=== PATIENT | female | born 1995 | race Caucasian/White ===

== ENCOUNTER 2024-09-27 16:49 | Inpatient (IN) | payer MEDICAID, SELFPAY ==
[2024-09-27 16:51] VITALS: BMI 31.8
[2024-09-27 17:05] VITALS: BP 128/87; PULSE 85; RESP 18; TEMP 37.2; O2SAT 98
--- NOTE | 2024-09-27 17:15 | XR_ITS ---
Examination: Complete OB ultrasound greater than 14 weeks Date and time of exam: September 27, 2024 1850 hrs. Indications: Clinical diagnosis molar , positive test on laboratory examination today Findings: Viable intrauterine single fetus with single amniotic sac Uterus 8.3 x 5.3 x 6.1 cm Cystic complex areas within the endometrium 4.1 x 3.5 x 5.2 cm consistent with more No recognizable viable intrauterine gestation Right ovary 2.7 x 2.3 x 1.7 cm arterial flow Left ovary obscured by bowel gas Impression: Findings most consistent with molar , recommend short-term follow-up pelvic sonography
--- NOTE | 2024-09-27 17:16 | PD.EDRME ---
Rapid Medical Screening Exam RME Arrival date/time: 09/27/24 16:49 29-year-old female approximately 18 weeks presents to the emergency department today stating that she went to the [facility] [employer] office today and they referred her today to the ER to rule out molar Chief Complaint: Urogenital-Female Time Seen by Provider: 09/27/24 17:02 Vital signs: Vital Signs Temperature 98.9 F 09/27/24 17:05 Pulse Rate 85 09/27/24 17:05 Respiratory Rate 18 09/27/24 17:05 Blood Pressure 128/87 H 09/27/24 17:05 Pulse Oximetry (%) 98 09/27/24 17:05 Oxygen Delivery Method Room Air 09/27/24 17:05
[2024-09-27 17:46] LABS: Collection Type, Urine Clean Catch
[2024-09-27 17:54] LABS: Bilirubin,Urine Negative (Negative); Blood,Urine Negative (Negative); Clarity,Urine Clear (Clear/Hazy); Color,Urine Lt-Yellow (Lt Yel-Yel); Glucose, Urine Negative (Negative); Ketones,Urine Negative (Negative); Leukocyte Esterase,Urine Negative (Negative); Nitrite,Urine Negative (Negative); PH,Urine 7.5 (5.0-7.0); Protein,Urine Negative (Neg - Trace); RBC,Urine 9 /hpf (0-3); Specific Gravity,Urine 1.016 (1.001-1.035); Squamous Epithelial Cell,Urine 7 /hpf (0-5); Urobilinogen,Urine Negative mg/dL (0.0-1.0); WBC,Urine 2 /hpf (0-5)
[2024-09-27 18:06] LABS: Basophils # (Auto) 0.1 Thou/mm3 (0.0-0.2); Basophils % (Auto) 1 % (0-2.5); Eosinophils # (Auto) 0.1 Thou/mm3 (0.0-0.5); Eosinophils % (Auto) 1 % (0-10); Hematocrit 43.8 % (36.0-46.0); Hemoglobin 14.7 g/dL (12.0-16.0); Immature Granulocytes % (Auto) 0 % (0-0); Immature Granulocytes Auto 0.01 Thou/mm3 (0.00-0.00); Lymphocytes # (Auto) 1.7 Thou/mm3 (1.0-4.8); Lymphocytes % (Auto) 20 % (10-50); Mean Corpuscular HGB Conc 33.6 g/dl (31.0-37.0); Mean Corpuscular Hemoglobin 30.9 pg (25.0-35.0); Mean Corpuscular Volume 92 fL (80-100); Monocytes # (Auto) 0.5 Thou/mm3 (0.0-0.8); Monocytes % (Auto) 5 % (0-12); Neutrophils # (Auto) 6.5 Thou/mm3 (1.8-7.7); Neutrophils % (Auto) 73 % (37-80); Nucleated Red Blood Cell % 0 /100 WBC (0); Platelet Count 308 Thou/mm3 (140-440); RDW Standard Deviation 43.7 fL (36.4-46.3); Red Blood Count 4.76 Miln/mm3 (4.00-5.20); White Blood Count 8.9 Thou/mm3 (3.6-11.0)
[2024-09-27 18:48] LABS: Alanine Aminotransferase 49 U/L (10-49); Albumin, Serum 4.9 gm/dL (3.5-5.0); Albumin/Globulin Ratio 1.6 (1.2-2.2); Alkaline Phosphatase 85 U/L (46-116); Anion Gap 7 (7-16); Aspartate Amino Transferase 41 U/L (0-34); BUN/Creatinine Ratio 17 Ratio (12-20); Beta HCG,Quantitative 53 mIU/mL (<5.0); Bilirubin,Total 0.6 mg/dL (0.3-1.2); Blood Urea Nitrogen 10 mg/dL (9-23); Calcium 9.4 mg/dL (8.3-10.6); Calcium (Corrected) 9.4 mg/dL (8.5-10.1); Chloride 103 mMol/L (98-107); Creatinine (Component) 0.6 mg/dL (0.6-1.3); Estimated Creatinine Clearance 138.7 mL/min (>60); Glucose 87 mg/dL (74-106); Osmolality,Calculated 271 (275-295); Potassium 4.7 mMol/L (3.4-5.1); Sodium 137 mMol/L (136-145); Total Protein 7.9 gm/dL (5.7-8.2); eGFR > 60 See Note
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
--- NOTE | 2024-09-27 20:14 | XR_ITS ---
Examination: PA lateral chest 2 views Technique: Upright PA lateral chest 2 views Exam date and time: September 27, 2024 2106 hrs. Comparison March 05, 2023 Indications: Coughing up blood today. Findings: Normal heart size Lungs are clear The osseous structures are intact Impression: No pneumonia identified If the patient has true hemoptysis, consider CTA chest with intravenous contrast follow-up
--- NOTE | 2024-09-27 20:14 | EKG_ITS ---
[facility] Test Date: 2024-09-27 Pat Name: ARNOLD GLASGOW Department: Room: - Gender: Female News Agent: : 1995 Requested By: Rishabh Hurtado Order Number: [id number] Reading MD: Rishabh Hurtado Measurements Intervals [place] Rate: 76 P: -14 SC: 152 QRS: 20 QRSD: 85 T: 29 QT: 400 QTc: 450 Interpretive Statements SINUS RHYTHM Compared to ECG 12/24/2021 03:47:51 Myocardial infarct finding no longer present /store/S0/[id number]/ecg/[id number].pdf
[2024-09-27 20:36] LABS: Partial Thromboplastin Time 29.6 Seconds (22.0-36.0); Prothrombin Time 10.9 Seconds (9.0-12.2)
--- NOTE | 2024-09-27 21:00 | PC.NURSE ---
First contact with pt in Room 9, pt changed into gown, connected to bedside monitoring and evaluation advisor, call light within reach. OB at bedside performing a vaginal exam, credit underwriter chaperoned exam, pt tolerated well.
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
[2024-09-27 21:30] VITALS: BP 128/83; PULSE 75; RESP 18; TEMP 37; O2SAT 99
[2024-09-27 21:33] LABS: Thyroid Stimulating Hormone 4.21 uIU/mL (0.55-4.78)
--- NOTE | 2024-09-27 22:00 | PC.NURSE ---
[facility] FAXED PAPERWORK FOR POSSIBLE TRANSFER
--- NOTE | 2024-09-27 22:20 | PC.NURSE ---
ACCEPTED [facility], SPOKE WITH ACIA, ER TO ER DR ARGUETA, [phone] FOR REPORT
--- NOTE | 2024-09-27 22:50 | PC.NURSE ---
[facility] CALLED BACK AND RESEND THE ACCEPTANCE, PT WILL BE ADMITTED TO OUR HOS[facility]
[2024-09-27 23:25] VITALS: BP 109/65; PULSE 78; RESP 17; TEMP 37.1; O2SAT 100
[2024-09-28 00:02] VITALS: BMI 28.0
[2024-09-28 00:32] VITALS: BP 124/83; PULSE 82; RESP 19; TEMP 36.3; O2SAT 95
[2024-09-28 04:00] VITALS: BP 100/80; PULSE 103; RESP 18; TEMP 36.2; O2SAT 96
[2024-09-28 06:50] LABS: Amphetamine/Methamp Scrn,U Negative (Negative); Barbiturate Screen,Urine Negative (Negative); Benzodiazepines Screen,Urine Negative (Negative); Benzoylecgonine Screen, Ur Negative (Negative); Fentanyl Screen,Urine Negative (Negative); Opiate Screen,Urine Negative (Negative); THC Screen,Urine Negative (Negative)
[2024-09-28 08:00] VITALS: BP 104/69; PULSE 88; RESP 16; TEMP 36.3; O2SAT 93
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
--- NOTE | 2024-09-28 11:22 | PC.CM ---
1052 Dr called me can and stated patient is stable and will be followed up on Monday in [place] [facility], referral [facility]. 929 I received a referral to transfer patient for molar . stating she needs an CUTTER HAND.
== END 2024-09-28 14:30 | disposition home or self-care (01) | DRG 566 ==
LOC: SERX 21:26 → SERHOLD 23:02 → S3NX 23:47
PROVIDERS: Nurse Practitioner Primary Care; Admitting Provider Obstetrics & Gynecology; Emergency Provider Emergency Medicine; PCP Family Medicine; Visit Provider Obstetrics & Gynecology
DX: O01.9 Hydatidiform mole, unspecified (principal); Z3A.19 19 weeks gestation of pregnancy
CPT/HCPCS: 36415; 71046; 76805; 80053; 80307; 81001; 84443; 84702; 85025; 85610; 85730; 86850; 86900; 86901; 87086

== ENCOUNTER 2024-11-05 19:44 | Inpatient (IN) | payer MEDICAID, SELFPAY ==
[2024-11-05 19:45] VITALS: BMI 26.5
[2024-11-05 19:47] VITALS: PULSE 87; RESP 18; O2SAT 100
--- NOTE | 2024-11-05 19:54 | XR_ITS ---
Examination: AP chest single view Technique: AP portable semiupright chest single view Exam date and time: November 05, 2024 0811 hrs. Comparison September 27, 2024 Indications: Difficulty breathing today Findings: Normal heart size No lobar pneumonia or pulmonary edema Intact osseous structures Impression: Poor inspiratory effort chest x-ray No pneumonia
[2024-11-05 19:57] VITALS: BP 114/86; PULSE 88; RESP 17; TEMP 36.8; O2SAT 99
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
--- NOTE | 2024-11-05 20:33 | EKG_ITS ---
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
[2024-11-05 20:36] LABS: Basophils # (Auto) 0.1 Thou/mm3 (0.0-0.2); Basophils % (Auto) 1 % (0-2.5); Eosinophils # (Auto) 0.2 Thou/mm3 (0.0-0.5); Eosinophils % (Auto) 2 % (0-10); Hemoglobin 13.5 g/dL (12.0-16.0); Immature Granulocytes % (Auto) 0 % (0-0); Immature Granulocytes Auto 0.03 Thou/mm3 (0.00-0.00); Lymphocytes # (Auto) 2.4 Thou/mm3 (1.0-4.8); Lymphocytes % (Auto) 24 % (10-50); Mean Corpuscular HGB Conc 32.9 g/dl (31.0-37.0); Mean Corpuscular Hemoglobin 30.7 pg (25.0-35.0); Mean Corpuscular Volume 93 fL (80-100); Monocytes # (Auto) 0.7 Thou/mm3 (0.0-0.8); Monocytes % (Auto) 7 % (0-12); Neutrophils # (Auto) 6.7 Thou/mm3 (1.8-7.7); Neutrophils % (Auto) 66 % (37-80); Nucleated Red Blood Cell % 0 /100 WBC (0); Platelet Count 319 Thou/mm3 (140-440); RDW Standard Deviation 43.7 fL (36.4-46.3)
[2024-11-05] MEDS: SODIUM CHLORIDE 0.9% 1000 ML 1,000 ML 85 ML IV (20:38)
[2024-11-05 20:58] LABS: INR 0.9 (0.9-1.3); Partial Thromboplastin Time 27.5 Seconds (22.0-36.0); Prothrombin Time 10.3 Seconds (9.0-12.2)
[2024-11-05 21:05] LABS: Alanine Aminotransferase 18 U/L (10-49); Albumin, Serum 4.1 gm/dL (3.5-5.0); Albumin/Globulin Ratio 1.3 (1.2-2.2); Anion Gap 8 (7-16); Aspartate Amino Transferase 20 U/L (0-34); BUN/Creatinine Ratio 17 Ratio (12-20); Bilirubin,Total 0.2 mg/dL (0.3-1.2); Blood Urea Nitrogen 12 mg/dL (9-23); Calcium 8.8 mg/dL (8.3-10.6); Calcium (Corrected) 8.8 mg/dL (8.5-10.1); Carbon Dioxide 26.4 mMol/L (20.0-31.0); Chloride 106 mMol/L (98-107); Creatinine (Component) 0.7 mg/dL (0.6-1.3); Estimated Creatinine Clearance 108.8 mL/min (>60); Globulin 3.1 gm/dL (2.3-3.5); Glucose 92 mg/dL (74-106); Osmolality,Calculated 279 (275-295); Potassium 4.8 mMol/L (3.4-5.1); Sodium 140 mMol/L (136-145); Total Protein 7.2 gm/dL (5.7-8.2); eGFR > 60 See Note
[2024-11-05 21:20] LABS: Alkaline Phosphatase 94 U/L (46-116)
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
[2024-11-05 22:32] VITALS: BP 100/83; PULSE 86; RESP 19; O2SAT 100
[2024-11-05 23:33] VITALS: PULSE 83; RESP 18; O2SAT 98
[2024-11-06] VITALS (178 sets, daily range): BP systolic 53–139; BP diastolic 41–107; PULSE 58–132; RESP 14–115; TEMP 36–36.4; O2SAT 20–100; BMI 26.5
--- NOTE | 2024-11-06 03:47 | XR_ITS ---
Examination: AP chest single view Technique one AP portable semiupright chest single view Exam date and time: November 06, 2024 0405 hrs. Comparison November 05, 2024 Indications: Hypoxic respiratory failure postintubation Findings: Endotracheal tube tip 3.3 cm above shannon Air distended stomach Mild prominence cardiac contour Diffuse edema and/or pneumonia at the lung puga Impression: Diffuse edema and/or pneumonia in the lymph nodes Endotracheal tube tip 3.3 cm above shannon Significantly air distended stomach
[2024-11-06] MEDS: PROPOFOL 1,000 MG IVPB 1,000 MG/100 ML VIAL 20.412 MG IV ×2 (03:58→08:28)
[2024-11-06] MEDS: fentaNYL CIT INJ 50 mCg/ML AMP 2ML IM (04:00)
[2024-11-06] MEDS: Norepinephrine/D5W 8mg/250ml 8 MG/250 ML BAG 6.379 MG IV (04:00)
[2024-11-06] MEDS: RINGERS LACTATED 1000 ML 1,000 ML 999 ML IV (04:02)
[2024-11-06 04:07] LABS: Base Excess, Venous -14 (-3-3); O2 Saturation, Venous 48 % (96-97); PCO2, Venous 81 mmHg (36-56); PO2, Venous 37 mmHg (15-58); pH, Venous 6.98 (7.33-7.66)
[2024-11-06 04:08] LABS: Basophils # (Auto) 0.2 Thou/mm3 (0.0-0.2); Basophils % (Auto) 1 % (0-2.5); Eosinophils # (Auto) 0.2 Thou/mm3 (0.0-0.5); Eosinophils % (Auto) 1 % (0-10); Hemoglobin 13.4 g/dL (12.0-16.0); Immature Granulocytes % (Auto) 12 % (0-0); Immature Granulocytes Auto 1.71 Thou/mm3 (0.00-0.00); Lymphocytes # (Auto) 8.6 Thou/mm3 (1.0-4.8); Lymphocytes % (Auto) 59 % (10-50); Mean Corpuscular HGB Conc 31.2 g/dl (31.0-37.0); Mean Corpuscular Hemoglobin 30.7 pg (25.0-35.0); Mean Corpuscular Volume 99 fL (80-100); Monocytes # (Auto) 0.8 Thou/mm3 (0.0-0.8); Monocytes % (Auto) 5 % (0-12); Neutrophils # (Auto) 3.3 Thou/mm3 (1.8-7.7); Neutrophils % (Auto) 22 % (37-80); Nucleated Red Blood Cell # 0.13 Thou/mm3 (0.00-0.00); Nucleated Red Blood Cell % 1 /100 WBC (0); Platelet Count 190 Thou/mm3 (140-440); RDW Standard Deviation 45.6 fL (36.4-46.3); Red Blood Count 4.36 Miln/mm3 (4.00-5.20); White Blood Count 14.7 Thou/mm3 (3.6-11.0)
--- NOTE | 2024-11-06 04:09 | XR_ITS ---
Examination: CT brain head without contrast. 2-D sagittal coronal reconstructions Date and time of exam:November 06, 2024 0839 hrs. Comparison March 05, 2023 Indications: Post cardiopulmonary arrest today CTDI: vol (mGy):51.2 DLP: (mGycm):1027 Technique: Multiple CT axial sections of the brain have been obtained, 5 mm slice thickness. Contrast has not been administered. 2-D sagittal, coronal reconstructions have been obtained Low dose protocols were performed. One or more of the following dose reduction techniques were used; automated exposure control, adjustment of the mA and/or KV according to patient size, use of iterative reconstruction technique. 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 No mass effect or midline shift Basal cisterns are not remarkable. Fourth ventricle is midline. Cranial vault intact. Impression: Negative for acute hemorrhage, mass effect or midline shift Suspicious for mild generalized cerebral edema Brain MRI follow-up would best confirm anoxic ischemic change
[2024-11-06] MEDS: fentaNYL 2,500 MCG/250 ML BAG 2,500 MCG/250 ML BAG 30 MCG IV (04:25)
--- NOTE | 2024-11-06 04:32 | PC.RT ---
PT came into ER last night due to accidental removal of tracheotomy tube, RT was unable to replace trach due to shrinkage of stoma, pt was admitted and stable on trach mask blow-by. Pt brought up to tele and remained stable throughout the evening awaiting revisions of tracheotomy. MEDICAL INTERN called @ 0312 due to rapid desaturations, upon RT entry into room pt was in clear respiratory distress, cyanotic and gasping for air/ and flailing arms. Pt instructed to lay back so RT could begin to administer bagged respirations to assist. Pt continued to go hypoxic and pulses lost. CPR initiated and prateek brown called over head @0314. Dr. Hairston called to bedside to intubate pt. Pt has hx of tracheal stenosis and was unable to be orally intubate. RT suggested to intubate via tracheal stoma. 5.0 ETT was sucessfully passed into stoma, yielding a positive co2 colormetric change @0329. Pt taken to ICU. ETT secured into stoma with tape @ 11CM at stoma site, post chest xray tube was retracted to 8CM @ stoma site and secured with tape and tegaderm. Pt placed on ventilator and remains stable as of this note.
[2024-11-06 04:33] LABS: Alanine Aminotransferase 81 U/L (10-49); Albumin, Serum 3.4 gm/dL (3.5-5.0); Albumin/Globulin Ratio 1.2 (1.2-2.2); Alkaline Phosphatase 116 U/L (46-116); Anion Gap 17 (7-16); Aspartate Amino Transferase 91 U/L (0-34); BUN/Creatinine Ratio 13 Ratio (12-20); Bilirubin,Total 0.2 mg/dL (0.3-1.2); Blood Urea Nitrogen 9 mg/dL (9-23); Calcium 8.3 mg/dL (8.3-10.6); Calcium (Corrected) 8.8 mg/dL (8.5-10.1); Carbon Dioxide 16.9 mMol/L (20.0-31.0); Chloride 111 mMol/L (98-107); Creatinine (Component) 0.7 mg/dL (0.6-1.3); Estimated Creatinine Clearance 108.8 mL/min (>60); Globulin 2.8 gm/dL (2.3-3.5); Glucose 177 mg/dL (74-106); Magnesium 2.4 mg/dL (1.6-2.6); Osmolality,Calculated 291 (275-295); Phosphorous 5.4 mg/dL (2.4-5.1); Potassium 5.4 mMol/L (3.4-5.1); Sodium 145 mMol/L (136-145); Total Protein 6.2 gm/dL (5.7-8.2); Troponin I < 0.020 ng/mL (0.0-0.045); eGFR > 60 See Note
[2024-11-06] MEDS: AMIODARONE 150 MG IVPB 150 MG/100 ML BAG 600 MG IV (04:39)
[2024-11-06 04:47] LABS: Cholesterol 99 mg/dL (132-200); HDL Cholesterol 50 mg/dL (40-60); LDL Cholesterol,Calculated 31 mg/dL (0-130); Triglycerides 90 mg/dL (30-150)
[2024-11-06] MEDS: AMIODARONE 360 MG IVPB 360 MG/200 ML BAG 33.333 MG IV (04:48)
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
--- NOTE | 2024-11-06 06:11 | PD.RESPROC ---
Procedures Procedure Date / Time 11/06/24 0611 Central Line Placement Right Femoral: Indication(s): shock and other (post rosc) Informed consent obtained: implied Time out done, and the following verified: correct patient, side and site, procedure, patient position and implants and/or equipment Patient placed on monitor/pulse ox: Yes Hand Hygiene: scrub, soap & water and alcohol-based hand rub Max Sterile Barrier Techniques used: cap, mask, sterile gown, sterile gloves and sterile full body drape Central line prep: Povidone-Iodine 1%, Chlorhexidine scrub and sterile drapes applied Local anesthesia used: other anesthetic (none) Amount of anesthesia used (mL): 0 Ultrasound used for placement: Yes Sterile Technique if Ultrasound used, including sterile gel: yes Central line lumen inserted: triple Post procedure: sutured in place, good blood return, all ports aspirated, flushed, capped and sterile dressing applied Post procedure x-ray: tip of catheter in good position Patient tolerated procedure: well EBL(ml): 2 Complications: none Intubation Indication(s): inability to protect airway and other (code blue) Informed consent obtained: implied Time out done, and the following verified: correct patient, side and site, procedure, patient position and implants and/or equipment Sedative: none Sedative #2: none Paralytic: other Laryngoscope: Han Assist device used: fiber optic device ET tube size: 5 ET tube uncuffed: Yes Tube secured location: other (neck, thru tracheostomy) Tube placement confirmation: visualized tube passing through cords, equal breath sounds bilaterally, no breath sounds over epigastrium and confirmation by capnometry Patient tolerated procedure: no complications EBL(ml): 1 Intubation complications: difficult intubation
[2024-11-06 06:15] LABS: Collection Type, Urine Catheter
[2024-11-06 06:22] LABS: Bacteria,Urine 1+; Bilirubin,Urine Negative (Negative); Blood,Urine 2+ (Negative); Budding Yeast,Urine Present; Clarity,Urine Turbid (Clear/Hazy); Color,Urine Lt-Yellow (Lt Yel-Yel); Glucose, Urine 3+ (Negative); Hyaline Casts,Urine < 1 /hpf (0-1); Ketones,Urine Negative (Negative); Leukocyte Esterase,Urine Negative (Negative); Nitrite,Urine Negative (Negative); Protein,Urine 3+ (Neg - Trace); RBC,Urine 29 /hpf (0-3); Squamous Epithelial Cell,Urine < 1 /hpf (0-5); Urobilinogen,Urine Negative mg/dL (0.0-1.0); WBC,Urine 20 /hpf (0-5)
--- NOTE | 2024-11-06 06:29 | PD.SUROPNT ---
Date of Procedure 11/06/24 Pre Op Diagnosis Tracheostomy site stenosis Post Op Diagnosis Tracheostomy site stenosis Procedure Revision of tracheostomy stoma Findings Significant stenosis around the tracheostomy site Procedure Description Patient was taken to the operating room in supine position. Patient had a size 5 Albanian endotracheal tube through the tracheostomy site. She had significant stenosis around the tracheostomy site. Multiple attempts were made by anesthesia provider to perform orotracheal intubation, that was not successful, he was unable to advance to oral tracheal tube beyond the vocal cords. Patient's neck was prepped with Betadine around the tube there was inserted through the tracheostomy site. A circular incision was made around the tracheostomy site and dissection was deepened. She had significant scarring and granulation tissue around the tracheostomy site. The trachea had significant stenosis. I was able to dilate the trachea enough to place an extra long cuffed size 6 tracheostomy. The cuff was insufflated and was connected to the ventilator where patient was being ventilated without difficulty. The tracheostomy was suctioned with moderate amount of tracheal secretions. Appropriate dressings applied. Patient remained hemodynamically stable and was transferred to intensive care unit. Instruments, needles and sponge counts were reported to be correct x 2. Anesthesia GETA Pathology / specimen None Estimated Blood Loss 2 Condition Stable Disposition ICU Surgeon Carol Durand MD Surgical Staff Operation Date: 11/06/24 05:45 <No data on this case meets the specified criteria>
[2024-11-06 07:04] LABS: Reflex Lactate? Y
[2024-11-06 08:46] LABS: Lactic Acid, 3 HR 1.7 mMol/L (0.4-2.0)
[2024-11-06 08:49] LABS: Basophils # (Auto) 0.1 Thou/mm3 (0.0-0.2); Basophils % (Auto) 0 % (0-2.5); Eosinophils % (Auto) 0 % (0-10); Hematocrit 40.8 % (36.0-46.0); Hemoglobin 13.5 g/dL (12.0-16.0); Immature Granulocytes % (Auto) 1 % (0-0); Immature Granulocytes Auto 0.19 Thou/mm3 (0.00-0.00); Lymphocytes # (Auto) 0.9 Thou/mm3 (1.0-4.8); Lymphocytes % (Auto) 3 % (10-50); Mean Corpuscular HGB Conc 33.1 g/dl (31.0-37.0); Mean Corpuscular Hemoglobin 31.1 pg (25.0-35.0); Mean Corpuscular Volume 94 fL (80-100); Monocytes % (Auto) 4 % (0-12); Neutrophils # (Auto) 25.1 Thou/mm3 (1.8-7.7); Neutrophils % (Auto) 92 % (37-80); Nucleated Red Blood Cell % 0 /100 WBC (0); Platelet Count 278 Thou/mm3 (140-440); RDW Standard Deviation 44.4 fL (36.4-46.3); Red Blood Count 4.34 Miln/mm3 (4.00-5.20); White Blood Count 27.2 Thou/mm3 (3.6-11.0)
[2024-11-06 09:06] LABS: Alanine Aminotransferase 151 U/L (10-49); Albumin, Serum 3.6 gm/dL (3.5-5.0); Albumin/Globulin Ratio 1.4 (1.2-2.2); Alkaline Phosphatase 108 U/L (46-116); Anion Gap 8 (7-16); Aspartate Amino Transferase 231 U/L (0-34); BUN/Creatinine Ratio 12 Ratio (12-20); Bilirubin,Total 0.6 mg/dL (0.3-1.2); Blood Urea Nitrogen 11 mg/dL (9-23); Calcium 7.8 mg/dL (8.3-10.6); Calcium (Corrected) 8.1 mg/dL (8.5-10.1); Carbon Dioxide 26.7 mMol/L (20.0-31.0); Chloride 107 mMol/L (98-107); Creatinine (Component) 0.9 mg/dL (0.6-1.3); Estimated Creatinine Clearance 84.6 mL/min (>60); Globulin 2.6 gm/dL (2.3-3.5); Glucose 207 mg/dL (74-106); Osmolality,Calculated 288 (275-295); Potassium 4.4 mMol/L (3.4-5.1); Sodium 142 mMol/L (136-145); Total Protein 6.2 gm/dL (5.7-8.2); eGFR > 60 See Note
[2024-11-06] MEDS: HEPARIN SOD INJ 5000 UNIT/ML VIAL SC ×2 (09:57→21:04)
--- NOTE | 2024-11-06 10:02 | ECHO_ITS ---
Transthoracic Echo Report Ht (in): 63 Wt (lb): 150 Exam Location: Echo Lab Status: Inpatient Actuarial Manager: JUAN CARLOS Machuca^^^^ Indications: Procedure Performed: BP: 124 / 79 HR: 65 Technical Quality: Fair MEASUREMENTS (Male / Female) Normal Values 2D ECHO LV Diastolic Diameter PLAX 4.2 cm 4.2 - 5.9 / 3.9 - 5.3 cm LV Systolic Diameter PLAX 2.9 cm IVS Diastolic Thickness 0.6 cm 0.6 - 1.0 / 0.6 - 0.9 cm LVPW Diastolic Thickness 0.7 cm 0.6 - 1.0 / 0.6 - 0.9 cm LV Relative Wall Thickness 0.3 LVOT Diameter 1.6 cm Aortic Root Diameter 2.7 cm LA Systolic Diameter LX 2.7 cm 3.0 - 4.0 / 2.7 - 3.8 cm LV Ejection Fraction MOD BP 58.6 % >= 55 % LV Cardiac Index MOD BP 1825.6 cm?/min?m? LV Ejection Fraction MOD 4C 59.1 % LV Cardiac Index MOD 4C 1984.8 cm?/min?m? LV Ejection Fraction 4C AL 60.0 % LV Cardiac Index 4C AL 2091.3 cm?/min?m? LV Ejection Fraction MOD 2C 59.7 % LV Cardiac Index MOD 2C 1658.9 cm?/min?m? LV Ejection Fraction 2C AL 61.5 % LV Cardiac Index 2C AL 1734.2 cm?/min?m? LA Volume Index 16.3 cm?/m? 16 - 28 cm?/m? DOPPLER AV Peak Velocity 91.0 cm/s AV Peak Gradient 3.3 mmHg AV Mean Gradient 3.0 mmHg AV Velocity Time Integral 16.5 cm AI Peak Velocity 279.0 cm/s AI Peak Gradient 31.1 mmHg AI Pressure Half Time 435.5 ms LVOT Peak Velocity 74.6 cm/s LVOT Peak Gradient 2.2 mmHg LVOT Velocity Time Integral 16.7 cm LVOT Cardiac Index 1243.4 cm?/min?m? AV Area Cont Eq vti 2.0 cm? AV Area Cont Eq pk 1.6 cm? MV Area PHT 3.2 cm? MR Peak Velocity 228.0 cm/s MR Peak Gradient 20.8 mmHg Mitral E Point Velocity 63.2 cm/s Mitral A Point Velocity 62.5 cm/s Mitral E to A Ratio 1.0 LV E' Lateral Velocity 6.4 cm/s Mitral E to LV E' Lateral Ratio 9.8 LV E' Septal Velocity 5.4 cm/s Mitral E to LV E' Septal Ratio 11.7 TR Peak Velocity 220.5 cm/s TR Peak Gradient 19.4 mmHg PV Peak Velocity 61.7 cm/s PV Peak Gradient 1.5 mmHg RVOT Peak Velocity 28.1 cm/s FINDINGS Left Ventricle Normal left ventricular size, wall thickness, systolic function. Hypokinetic basal anterolateral wall motion. Hypokinetic basal inferolateral wall motion. Normal left ventricular diastolic filling pattern for age. The ejection fraction is visually estimated at 55% Right Ventricle The right ventricle is normal in size and systolic function. The estimated right ventricular systolic pressure, 25 mmHg. Left Atrium The left atrium is normal by two-dimensional, color flow and Doppler imaging with no structural abnormalities, no thrombus formation present. Right Atrium The right atrium is normal by two-dimensional imaging, color flow and Doppler imaging with no structural abnormalities, no thrombus formation present. Atrial Septum The interatrial septum appears normal with no evidence of a shunt. Aorta The aorta is normal by two-dimensional, color flow and Doppler interrogation. Mitral Valve Mild mitral regurgitation. Aortic Valve Findings consistent with vegetation on the aortic valve. Trace to mild aortic valve regurgitation. Tricuspid Valve There is mild tricuspid valve regurgitation. Pulmonic Valve Trivial pulmonic valve regurgitation. Vessels The pulmonary artery appears normal. The inferior vena cava pulmonary and hepatic veins appear normal. Pericardium The pericardium is normal by two-dimensional imaging. There is no significant pericardial effusion. CONCLUSIONS indication: Post cardiac arrest LV appears normal with EF 55-60%. Lateral Basal Wall motion abnormality RV appears normal with RVSP 25 mmHg MV has mild MR TV has mild TR AOV has findings consistent with a vegetation. trace-mild AI. Susie King (Electronically Signed) Final Date: 06 November 2024 16:44
[2024-11-06] MEDS: VANCOMYCIN/D5W 1,250 MG IVPB 250 ML 120 MG IV (10:07)
[2024-11-06] MEDS: AMIODARONE 360 MG IVPB 360 MG/200 ML BAG 16.667 MG IV (10:43)
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
[2024-11-06 10:59] LABS: Base Excess -1 (-3-3); HCO3 26 mEq/L (20-26); Inspired Oxygen, FIO2 60 %; O2 Saturation 100 % (91-98); PCO2 51 mmHg (32.0-48.0); PO2 161 mmHg (83-108); pH, Arterial 7.32 (7.35-7.45)
[2024-11-06 11:00] LABS: Allen Test Performed/OK; Puncture Site Right Radial
--- NOTE | 2024-11-06 11:40 | PC.NURSE ---
pt began having intermitent twitching abdomen and on face, Dr. Ojeda notified and at bedside, no new orders at this time
[2024-11-06] MEDS: CALCIUM GLUC/NS 1000MG IVPB 1,000 MG/50 ML BAG 50 MG IV (12:06)
[2024-11-06 13:07] LABS: Base Excess -1 (-3-3); HCO3 26 mEq/L (20-26); Inspired Oxygen, FIO2 60 %; O2 Saturation 100 % (91-98); PCO2 49 mmHg (32.0-48.0); PO2 201 mmHg (83-108); Puncture Site Right Radial; pH, Arterial 7.33 (7.35-7.45)
[2024-11-06 13:08] LABS: Allen Test Performed/OK
[2024-11-06 13:41] LABS: Magnesium 1.9 mg/dL (1.6-2.6); Phosphorous 2.6 mg/dL (2.4-5.1)
[2024-11-06] MEDS: fentaNYL 2,500 MCG/250 ML BAG 2,500 MCG/250 ML BAG 15 MCG IV (15:08)
[2024-11-06] MEDS: LORazepam 2 MG/ML VIAL IVP ×3 (15:12→20:36)
--- NOTE | 2024-11-06 15:49 | PC.SS ---
[facility] conducted phone contact with the patient?s friend, Priscila Ceja to conduct initial assessment on behalf of the patient.? Patient admitted to ICU, currently intubated.? Patient resides with friend, Priscila Ceja.? Patient is partner to friend?s (Priscila Ceja) son, Byron Ceja.? Patient has been residing at Priscila Ceja?s residence for approximately 2 years.? Patient does not utilize DME to assist with ambulation.? Patient does not utilize home oxygen.? Patient possesses ability to complete ADL?s independently.? Patient?s medical surrogate decision maker is Priscila Ceja.? Patient is estranged from family.? Patient is not aligned with PCP.? Patient does not possess any specialty providers.? Patient does not participate with dialysis.? Patient utilizes [facility] for medication services.? player services representative will discuss discharge needs at an appropriate future time.? No further intervention required at this time, hospice social worker will be available to address any further concerns.? Next of Kin: Priscila Ceja D/C Plan: Pending
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
[2024-11-06 16:46] LABS: Base Excess 1 (-3-3); HCO3 26 mEq/L (20-26); Inspired Oxygen, FIO2 60 %; O2 Saturation 100 % (91-98); PCO2 41 mmHg (32.0-48.0); PO2 140 mmHg (83-108)
[2024-11-06 16:52] LABS: Puncture Site Left Radial
[2024-11-06 16:53] LABS: Allen Test Performed/OK
[2024-11-06 16:53] LABS: Amphetamine/Methamp Scrn,U Negative (Negative); Barbiturate Screen,Urine Negative (Negative); Benzodiazepines Screen,Urine Negative (Negative); Benzoylecgonine Screen, Ur Negative (Negative); Fentanyl Screen,Urine Positive (Negative); Opiate Screen,Urine Negative (Negative); THC Screen,Urine Negative (Negative)
[2024-11-06] MEDS: levETIRAcetam INJ 100 MG/ML VIAL 5ML 1000 MG IVP (16:54)
--- NOTE | 2024-11-06 17:52 | PC.NURSE ---
dr. Ojeda made aware of pt urine output and pt does not have IV fluids
--- NOTE | 2024-11-06 17:53 | PC.NURSE ---
Dr. chavez made aware of urine output
--- NOTE | 2024-11-06 18:03 | PC.NURSE ---
clarification made with Dr. Ojeda on pt sedation and RASS goal, Per Dr. Ojeda, titrate fentanyl and propofol, per protocol and goal RASS of -2
--- NOTE | 2024-11-06 18:32 | PC.NURSE ---
at 1510 pt began having seizure, oxygen sat. at 82% at lowest, pt posturing, Dr. Ojeda, Dr. Brunner and Dr. Delgadillo at bedside orders received for ativan, at 1814 pt having seizure activity, Dr. Ojeda and Dr. Delgadillo at bedside, ativan given per orders
[2024-11-06] MEDS: MIDAZOLAM/NS 100 MG IVPB 100 MG/100 ML BAG IV (21:01)
[2024-11-07] VITALS (122 sets, daily range): BP systolic 85–143; BP diastolic 56–99; PULSE 59–117; RESP 12–27; TEMP 35.3–36.8; O2SAT 81–100; BMI 26.5
--- NOTE | 2024-11-07 01:38 | XR_ITS ---
Examination: AP chest single view Technique one AP portable semiupright chest single view Exam date and time: November 07, 2024 0149 hrs. Comparison November 06, 2024 Indications: Post orogastric tube placement Findings: Orogastric tube in the stomach satisfactory position Soft opacities in both perihilar basilar regions consistent with pneumonia Tracheal tube tip 5.2 cm above shannon Mild enlargement cardiac contour Impression: Orogastric tube tip in the stomach satisfactory position
[2024-11-07] MEDS: levETIRAcetam INJ 100 MG/ML VIAL 5ML 500 MG IVP ×3 (05:26→21:08)
[2024-11-07 05:41] LABS: Base Excess 2 (-3-3); HCO3 27 mEq/L (20-26); Inspired Oxygen, FIO2 30 %; O2 Saturation 100 % (91-98); PCO2 41 mmHg (32.0-48.0); PO2 130 mmHg (83-108); pH, Arterial 7.42 (7.35-7.45)
[2024-11-07 05:48] LABS: Allen Test Performed/OK; Puncture Site Right Radial
[2024-11-07 06:11] LABS: Alanine Aminotransferase 103 U/L (10-49); Albumin, Serum 3.2 gm/dL (3.5-5.0); Albumin/Globulin Ratio 1.3 (1.2-2.2); Alkaline Phosphatase 77 U/L (46-116); Anion Gap 9 (7-16); Aspartate Amino Transferase 88 U/L (0-34); BUN/Creatinine Ratio 17 Ratio (12-20); Bilirubin,Total 0.4 mg/dL (0.3-1.2); Blood Urea Nitrogen 22 mg/dL (9-23); Calcium 7.8 mg/dL (8.3-10.6); Calcium (Corrected) 8.4 mg/dL (8.5-10.1); Carbon Dioxide 26.7 mMol/L (20.0-31.0); Chloride 104 mMol/L (98-107); Creatinine (Component) 1.3 mg/dL (0.6-1.3); Estimated Creatinine Clearance 57.2 mL/min (>60); Globulin 2.4 gm/dL (2.3-3.5); Glucose 107 mg/dL (74-106); Magnesium 1.8 mg/dL (1.6-2.6); Osmolality,Calculated 282 (275-295); Phosphorous 3.2 mg/dL (2.4-5.1); Potassium 4.2 mMol/L (3.4-5.1); Sodium 140 mMol/L (136-145); Total Protein 5.6 gm/dL (5.7-8.2); eGFR 57 See Note
[2024-11-07 07:33] LABS: Basophils % (Auto) 0 % (0-2.5); Eosinophils % (Auto) 0 % (0-10); Hematocrit 33.7 % (36.0-46.0); Hemoglobin 11.4 g/dL (12.0-16.0); Immature Granulocytes % (Auto) 1 % (0-0); Immature Granulocytes Auto 0.12 Thou/mm3 (0.00-0.00); Lymphocytes # (Auto) 0.9 Thou/mm3 (1.0-4.8); Lymphocytes % (Auto) 5 % (10-50); Mean Corpuscular HGB Conc 33.8 g/dl (31.0-37.0); Mean Corpuscular Volume 92 fL (80-100); Monocytes # (Auto) 0.9 Thou/mm3 (0.0-0.8); Monocytes % (Auto) 4 % (0-12); Neutrophils # (Auto) 18.6 Thou/mm3 (1.8-7.7); Neutrophils % (Auto) 90 % (37-80); Nucleated Red Blood Cell % 0 /100 WBC (0); Platelet Count 169 Thou/mm3 (140-440); RDW Standard Deviation 43.8 fL (36.4-46.3); Red Blood Count 3.68 Miln/mm3 (4.00-5.20); White Blood Count 20.6 Thou/mm3 (3.6-11.0)
[2024-11-07] MEDS: RINGERS LACTATED 1000 ML 1,000 ML 999 ML IV (09:13)
[2024-11-07] MEDS: HEPARIN SOD INJ 5000 UNIT/ML VIAL SC ×2 (09:14→21:09)
[2024-11-07] MEDS: PANTOPRAZOLE INJ 40 MG VIAL IV (09:15)
[2024-11-07] MEDS: Vancomycin Inj 1,500 MG in SODIUM CHLORIDE 0.9% 500 ML 500 ML 200 MG IV (09:41)
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
--- NOTE | 2024-11-07 14:00 | ECHO_ITS ---
Transesophageal Echo Report Ht (in): 63 Wt (lb): 150 Exam Location: Echo Lab Status: Inpatient Securities Trader: JUAN CARLOS Machuca^^^^ Indications: Procedure Performed: BP: 95 / 69 HR: 79 Rhythm: Sinus Technical Quality: Excellent MEASUREMENTS 2D ECHO Aortic Root Diameter 3.0 cm (Male / Female) Normal Values FINDINGS Left Ventricle Normal left ventricular size, wall thickness, systolic function with no obvious regional wall motion abnormalities. Normal left ventricular diastolic filling pattern for age. The ejection fraction is visually estimated at 60-65 %. Right Ventricle The right ventricle is normal in size and systolic function. pressure, __ mmHg. Left Atrium The left atrium is normal by two-dimensional, color flow and Doppler imaging with no structural abnormalities, no thrombus formation present. Right Atrium The right atrium is normal by two-dimensional imaging, color flow and Doppler imaging with no structural abnormalities, no thrombus formation present. Atrial Septum The interatrial septum is normal to color flow Doppler and agitated saline imaging. Aorta The aorta is normal by two-dimensional, color flow and Doppler interrogation. Mitral Valve Trace to mild mitral regurgitation. Aortic Valve The aortic valve is trileaflet and normal by two-dimensional, color flow and Doppler interrogation. There is no significant aortic valve regurgitation. Tricuspid Valve There is mild tricuspid valve regurgitation. Pulmonic Valve The pulmonic valve is not well visualized. There is no significant pulmonic valve regurgitation. Vessels The pulmonary artery appears normal. The inferior vena cava pulmonary and hepatic veins appear normal. Pericardium The pericardium is normal by two-dimensional imaging. There is no significant pericardial effusion. CONCLUSIONS Indication: r/o Endocarditis. No evidence of any mobile echodensity noted on the aortic valve. There is no evidence of any vegetations are any signs of endocarditis. Normal LV size and function. LVEF 60 to 65%. Normal RV size and function. Trace MR and TR. Bubble study negative for any PFO or ASD. No LA/ISABELA thrombus. Vishal Spence (Electronically Signed) Final Date: 07 November 2024 18:39
[2024-11-07] MEDS: BENZOCAINE 20% (Hurricaine) SPRAY 1 DOSE TOP (14:16)
[2024-11-07] MEDS: MIDAZOLAM INJ 1 MG/ML VIAL 2 ML 5 MG IV (14:22)
[2024-11-07] MEDS: fentaNYL CIT INJ 50 mCg/ML AMP 2ML IVP ×2 (14:24→14:48)
[2024-11-07] MEDS: MIDAZOLAM INJ 1 MG/ML VIAL 2 ML 2 MG IV (14:31)
[2024-11-07] MEDS: PROPOFOL 1,000 MG IVPB 1,000 MG/100 ML VIAL 4.082 MG IV (14:35)
--- NOTE | 2024-11-07 14:58 | PC.DIETICIAN ---
Nutrition prescription: Vital AF 1.2 at 20 ml/hr via OG/NG/PEG tube by pump. Advance 10 ml every 8 hrs to goal rate of 50 ml/hr x 24 hrs. If no IV fluids, water flushes of 25 ml/hr (or per MD). Goal rate will be adjusted if propofol is discontinued or infusion rate considerably decreased.
--- NOTE | 2024-11-07 15:51 | PD.RESPRO ---
Documentation for date of: 11/07/24 Subjective Subjective Interval history: patient seen and examined in the icu. on mechanical ventilation and sedated, had additional seizures and was given versed overnight Exam Vital Signs Temp Pulse Resp BP Pulse Ox O2 Del Method O2 Flow Rate 97.6 F 91 18 96/60 99 Mechanical Ventilation 10 11/07/24 12:00 11/07/24 15:00 11/07/24 02:33 11/07/24 15:00 11/07/24 15:00 11/07/24 08:00 11/06/24 03:12 FiO2 35 11/07/24 14:56 Narrative Exam General: intubated, sedated, mechanically ventilated HEENT: ET tube in tracheostomy site, site C/D/I, NC/AT, mucous membranes moist, bilateral sclera anicteric Cardiovascular: regular rate and rhythm, S1/S2 present, no murmurs appreciated Pulmonary: clear to auscultation bilaterally, no rales/rhonchi/wheezes Abdominal: soft, non-distended, normal bowel sounds present Musculoskeletal: no peripheral edema Skin: warm and dry, intact, no rashes Neuro: positive corneal reflex, oculocephalic reflex was positive, retracts to painful stimuli Objective Labs 11/08/24 04:44 11/08/24 21:57 Labs: Laboratory Results - last 24 hr 11/06/24 11/06/24 11/07/24 16:14 16:35 04:49 WBC RBC Hgb Hct MCV MCH MCHC RDW Std Deviation Plt Count Neut % (Auto) Lymph % (Auto) [place] % (Auto) Eos % (Auto) Baso % (Auto) Neut # (Auto) Lymph # (Auto) [place] # (Auto) Eos # (Auto) Baso # (Auto) Immature Gran # (Auto) Absolute Nucleated RBC Immature Gran % Nucleated RBC % Puncture Site Left Radial ABG pH 7.40 ABG pCO2 41 ABG pO2 140 H D ABG HCO3 26 ABG O2 Saturation 100 H ABG Base Excess 1 FiO2 60 Sodium 140 Potassium 4.2 Chloride 104 Carbon Dioxide 26.7 Anion Gap 9 BUN 22 Creatinine 1.3 Estim Creat Clear Calc 57.2 L eGFR 57 L BUN/Creatinine Ratio 17 Glucose 107 H D Calculated Osmolality 282 Calcium 7.8 L Corrected Calcium 8.4 L Phosphorus 3.2 Magnesium 1.8 Total Bilirubin 0.4 AST 88 H ALT 103 H Alkaline Phosphatase 77 D Total Protein 5.6 L Albumin 3.2 L Globulin 2.4 Albumin/Globulin Ratio 1.3 Urine Opiates Screen Negative Urine Fentanyl Screen Positive A Ur Barbiturates Screen Negative U Amphetamin/Meth Scrn Negative U Benzodiazepines Scrn Negative U Cocaine Metab Screen Negative U Marijuana (THC) Screen Negative 11/07/24 11/07/24 05:28 06:45 WBC 20.6 H D RBC 3.68 L Hgb 11.4 L D Hct 33.7 L MCV 92 MCH 31.0 MCHC 33.8 RDW Std Deviation 43.8 Plt Count 169 D Neut % (Auto) 90 H Lymph % (Auto) 5 L [place] % (Auto) 4 Eos % (Auto) 0 Baso % (Auto) 0 Neut # (Auto) 18.6 H Lymph # (Auto) 0.9 L [place] # (Auto) 0.9 H Eos # (Auto) 0.0 Baso # (Auto) 0.0 Immature Gran # (Auto) 0.12 H Absolute Nucleated RBC 0.00 Immature Gran % 1 H Nucleated RBC % 0 Puncture Site Right Radial ABG pH 7.42 ABG pCO2 41 ABG pO2 130 H ABG HCO3 27 H ABG O2 Saturation 100 H ABG Base Excess 2 FiO2 30 Sodium Potassium Chloride Carbon Dioxide Anion Gap BUN Creatinine Estim Creat Clear Calc eGFR BUN/Creatinine Ratio Glucose Calculated Osmolality Calcium Corrected Calcium Phosphorus Magnesium Total Bilirubin AST ALT Alkaline Phosphatase Total Protein Albumin Globulin Albumin/Globulin Ratio Urine Opiates Screen Urine Fentanyl Screen Ur Barbiturates Screen U Amphetamin/Meth Scrn U Benzodiazepines Scrn U Cocaine Metab Screen U Marijuana (THC) Screen ABG Interpretation ABG results: 11/06/24 11/06/24 11/06/24 03:55 10:50 12:55 ABG pH 7.32 L 7.33 L ABG pCO2 51 H 49 H ABG pO2 161 H 201 H D ABG HCO3 26 26 ABG O2 Saturation 100 H 100 H ABG Base Excess -1 -1 VBG pH 6.98 L VBG pCO2 81 H VBG pO2 37 VBG Base Excess -14 L 11/06/24 11/07/24 16:35 05:28 ABG pH 7.40 7.42 ABG pCO2 41 41 ABG pO2 140 H D 130 H ABG HCO3 26 27 H ABG O2 Saturation 100 H 100 H ABG Base Excess 1 2 VBG pH VBG pCO2 VBG pO2 VBG Base Excess Quality Measures Quality Measures VTE prophylaxis Assessment & Plan Assessment Current Active Medications: Generic Name Dose Route Start Last Admin Trade Name Freq PRN Reason Stop Dose Admin Acetylcysteine 4 ml 11/05/24 21:53 Acetylcysteine Rt Cesia 10% 4 Ml Nebu INH 12/05/24 22:59 Q4HRRT PRN Increased Secretions Albuterol/Ipratropium 3 ml 11/05/24 21:53 Albuterol/Ipratropium (Duoneb) Rt Cesia 3 Ml Nebu INH 12/05/24 22:59 Q4HRRT PRN SOB/Wheeze Heparin Sodium (Porcine) 5,000 unit 11/06/24 09:00 11/07/24 09:14 Heparin Sod Inj 5000 Unit/Ml Vial SC 11/20/24 08:59 5,000 unit BID AMIRA Administration Norepinephrine/Dextrose 8 mg in 250 mls @ 6.379 mls/hr 11/06/24 03:49 11/06/24 12:45 Levophed In D5w 8mg/250ml IV 12/06/24 03:48 0 mcg/kg/min .Q24H PRN 0 mls/hr PER PROTOCOL Titration Protocol 0.05 MCG/KG/MIN Propofol 1,000 mg in 100 mls @ 2.041 mls/hr 11/06/24 03:50 11/07/24 14:35 Diprivan Ivpb IV 12/06/24 03:49 10 mcg/kg/min .Q24H PRN 4.082 mls/hr PER PROTOCOL Administration Protocol 5 MCG/KG/MIN Fentanyl Citrate 2,500 mcg in 250 mls @ 2.5 mls/hr 11/06/24 03:50 11/06/24 17:38 Sublimaze Inj 2,500 Mcg/250 Ml Bag IV 11/11/24 03:49 0 mcg/hr .Q24H PRN 0 mls/hr PER PROTOCOL Titration Protocol 25 MCG/HR Vasopressin/Sodium Chloride 20 unit in 100 mls @ 9 mls/hr 11/06/24 04:14 Vasostrict/Ns Ivpb IV 12/06/24 04:13 .Q11H7M PRN PER PROTOCOL Protocol 0.03 UNIT/MIN Midazolam HCl 100 mg in 100 mls @ 1 mls/hr 11/06/24 20:42 11/07/24 10:00 Versed Pf Inj In Ns Premix IV 11/11/24 20:41 0 mg/hr .Q24H PRN 0 mls/hr PER PROTOCOL Titration Protocol 1 MG/HR Vancomycin HCl 1,500 mg/ 500 mls @ 200 mls/hr 11/07/24 10:00 11/07/24 09:41 Sodium Chloride IV 11/14/24 09:59 200 mls/hr QDAY@1000 AMIRA Administration Levetiracetam 500 mg 11/07/24 05:00 11/07/24 09:14 Levetiracetam Inj 100 Mg/Ml Vial 5ml IVP 12/07/24 04:59 500 mg Q12HR AMIRA Administration Lorazepam 2 mg 11/06/24 18:16 11/06/24 20:36 Lorazepam 2 Mg/Ml Vial IVP 11/11/24 19:59 2 mg Q2HR PRN Administration seizure Pantoprazole Sodium 40 mg 11/07/24 09:00 11/07/24 09:15 Pantoprazole Inj 40 Mg Vial IV 12/07/24 08:59 40 mg QDAY AMIRA Administration Pharmacy Consult 1 each 11/07/24 11:00 Vancomycin Pharmacy To Dose 1 Each Each IV 12/07/24 10:59 QDAY PRN PROTOCOL Plan #Seizures #R sided myoclonus #Hx of LMCA stroke Assessment: CT head on 11/06: old infarcts in distribution left MCA with mild ipsilateral ventricular dilatation, this area could the foci of patient's seizure activity After evaluation with my attending no evidence of cerebral edema was noted tonic -movements in eyes, tongue, abdomen, and feet with decerebrate posturing. Recommendations: - PRN lorazepam - Keppra loading dose (1 g) followed by 500 mg BID on 11/06 - EEG - consider repeat CT head to evaluate for cerebral edema - hold off MR brain w w/o - Patient's care was discussed with my attending physician, Dr. José Miguel Portillo MD Internal Medicine PGY-3 Attending Provider Attestation/Addendum i personally have Seen and examined the patient and I agree with resident's findings, assessment and plan of care. Patient has not had any myoclonic seizures from this morning. She is on propofol infusion. Will do EEG as it becomes available hopefully without propofol on board and repeat CT head today to evaluate for cerebral edema.
--- NOTE | 2024-11-07 16:16 | PD.INTPROC ---
Procedures Procedure Date / Time 11/07/24 1616 Procedural Time Out Time out performed: Performed with cardiology for transesophageal echocardiogram Procedure Narrative Procedure Narrative: Patient requiring moderate to deep sedation for MARC. Patient is status post tracheostomy on mechanical ventilation. Unable to open jaw adequately with 5mg of versed. Additional 2mg administered along with 50 mcg of fentanyl with no effect. Propofol gtt started at 10mcg/kg/min. Additional 30 mcg bolus administered allowing bite block only to be placed. Consideration of paralytic but I administered an additional bolus of 30mcg of IVP propofol given with 50 mcg bolus of fentanyl. Achieved adequate deep sedation to allow passing of the MARC probe. Maintained on propfol gtt without complication. Patient will be maintained overnight on propofol with plan for SAT in AM.
--- NOTE | 2024-11-07 16:46 | PC.SS ---
Update: Patient remains intubated and sedated. NG tube to be reinserted. Patient obtained MARC today. EEG planned for tomorrow. No skin issues and no pressor support.
--- NOTE | 2024-11-07 17:09 | PC.SS ---
SLE[employer]OTT[employer]LLER met with patient's friend, Jaclyn Flowers ([phone]); requesting update on patient's condition. SLEEVE BOTTOM FELLER informed friend that information can only be provided to patient's POC, Priscila. Friend informed SLEEVE BOTTOM FELLER that attempt to contact patient's sister, Anais; underway. SLEEVE BOTTOM FELLER contacted POC, Priscila; to confirm patient possesses a sister. POC confirmed, requested that SLEEV[employer] BOTTOM FELLER provide POC contact number to patient's friend Jaclyn Flowers in order to conduct contact with patient's sister Anais. POC to provide update to SLE[employer]OTT[employer] FELLER if contact is successful. POC, Priscila; remains patient's surrogate medical decision maker. Bedside nurse updated.
--- NOTE | 2024-11-07 17:29 | XR_ITS ---
Examination: Abdomen AP single view Technique: AP portable supine abdomen, single view Exam date and time: November 07, 2024 1917 hrs. Indications: Post orogastric tube placement Findings: Orogastric tube tip likely in distended stomach, coiled also in the fundus of the stomach No free air Moderate stool throughout the colon Impression: Recommend retracting the tracheal tube 5 cm
--- NOTE | 2024-11-07 19:01 | XR_ITS ---
Examination: CT brain head without contrast. 2-D sagittal coronal reconstructions Date and time of exam:November 07, 2024 2018 hrs. Indications: Seizure activity today, hypoxic respiratory failure CTDI: vol (mGy):52.1 DLP: (mGycm):1257 Technique: Multiple CT axial sections of the brain have been obtained, 5 mm slice thickness. Contrast has not been administered. 2-D sagittal, coronal reconstructions have been obtained Low dose protocols were performed. One or more of the following dose reduction techniques were used; automated exposure control, adjustment of the mA and/or KV according to patient size, use of iterative reconstruction technique. Findings: Old infarct left caudate nucleus with ipsilateral ventricular dilatation Old infarct left basal ganglia No acute hemorrhage or definite mass effect Impression: No interval hemorrhage or mass effect compared with November 06, 2024 Findings remain suspicious for mild diffuse cerebral edema, MRI brain without contrast follow-up would best assess for anoxic change
[2024-11-07 19:05] LABS: HCG Qualitative,Urine Negative
[2024-11-07] MEDS: Magnesium Sulfate 4 GM Ivpb 4 GM/50 ML BAG IV (22:03)
[2024-11-07] MEDS: RINGERS LACTATED 1000 ML 1,000 ML 150 ML IV (22:38)
[2024-11-08] VITALS (39 sets, daily range): BP systolic 97–155; BP diastolic 52–118; PULSE 72–128; RESP 16–32; TEMP 35.4–37.3; O2SAT 89–100; BMI 26.5
[2024-11-08] MEDS: PROPOFOL 1,000 MG IVPB 1,000 MG/100 ML VIAL 16.329 MG IV
--- NOTE | 2024-11-08 04:30 | PC.NURSE ---
At 1486 Aunt Quiana Schuster called for update of PT. Quiana was informed PT appointed Priscila to be P.O.C upon admission and would need to speak to case management with questions and concerns. Quiana Schuster can be reached at [phone]. Sister Shelly can be reached at [phone].
[2024-11-08 05:55] LABS: Basophils % (Auto) 0 % (0-2.5); Eosinophils % (Auto) 0 % (0-10); Hematocrit 30.1 % (36.0-46.0); Hemoglobin 10.1 g/dL (12.0-16.0); Immature Granulocytes % (Auto) 1 % (0-0); Immature Granulocytes Auto 0.07 Thou/mm3 (0.00-0.00); Lymphocytes # (Auto) 1.1 Thou/mm3 (1.0-4.8); Lymphocytes % (Auto) 9 % (10-50); Mean Corpuscular HGB Conc 33.6 g/dl (31.0-37.0); Mean Corpuscular Hemoglobin 30.8 pg (25.0-35.0); Mean Corpuscular Volume 92 fL (80-100); Monocytes # (Auto) 0.7 Thou/mm3 (0.0-0.8); Monocytes % (Auto) 6 % (0-12); Neutrophils # (Auto) 10.6 Thou/mm3 (1.8-7.7); Neutrophils % (Auto) 84 % (37-80); Nucleated Red Blood Cell % 0 /100 WBC (0); Platelet Count 150 Thou/mm3 (140-440); RDW Standard Deviation 43.8 fL (36.4-46.3); Red Blood Count 3.28 Miln/mm3 (4.00-5.20); White Blood Count 12.6 Thou/mm3 (3.6-11.0)
[2024-11-08] MEDS: PROPOFOL 1,000 MG IVPB 1,000 MG/100 ML VIAL 2.041 MG IV (06:00)
[2024-11-08 06:22] LABS: Alanine Aminotransferase 71 U/L (10-49); Albumin, Serum 2.9 gm/dL (3.5-5.0); Albumin/Globulin Ratio 1.3 (1.2-2.2); Alkaline Phosphatase 66 U/L (46-116); Anion Gap 9 (7-16); Aspartate Amino Transferase 81 U/L (0-34); BUN/Creatinine Ratio 16 Ratio (12-20); Bilirubin,Total 0.4 mg/dL (0.3-1.2); Blood Urea Nitrogen 29 mg/dL (9-23); Calcium 7.7 mg/dL (8.3-10.6); Calcium (Corrected) 8.6 mg/dL (8.5-10.1); Carbon Dioxide 26.8 mMol/L (20.0-31.0); Chloride 105 mMol/L (98-107); Creatinine (Component) 1.8 mg/dL (0.6-1.3); Estimated Creatinine Clearance 48.8 mL/min (>60); Globulin 2.2 gm/dL (2.3-3.5); Glucose 103 mg/dL (74-106); Magnesium 2.6 mg/dL (1.6-2.6); Osmolality,Calculated 287 (275-295); Phosphorous 2.7 mg/dL (2.4-5.1); Potassium 3.3 mMol/L (3.4-5.1); Sodium 141 mMol/L (136-145); Total Protein 5.1 gm/dL (5.7-8.2); eGFR 38 See Note
[2024-11-08] MEDS: PANTOPRAZOLE INJ 40 MG VIAL IV (08:11)
[2024-11-08] MEDS: POTASSIUM CHLORIDE 10% 20 MEQ/15 ML UDC 40 MEQ GT (08:11)
[2024-11-08] MEDS: HEPARIN SOD INJ 5000 UNIT/ML VIAL SC ×2 (08:17→21:26)
[2024-11-08] MEDS: levETIRAcetam INJ 100 MG/ML VIAL 5ML 500 MG IVP ×2 (08:37→21:24)
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
[2024-11-08] MEDS: SODIUM CHLORIDE 3%(Hypertonic) 100 ML in PRE-MIXED 1 BAG IV (09:34)
--- NOTE | 2024-11-08 09:54 | PC.SS ---
Addendum entered by ALESSANDRO Gracia 11/08/24 10:03: SS update: notified registration to update the patient's facesheet. Original Note: SS follow up: ASW was contacted regarding concerns for the patient's point of contact. Patient has a sister, Anais Vazquez who would like to be the medical decision maker/point of contact on behalf of the patient. Anais informs she last communicated with the patient this week on Monday, via [employer] messenger. Anais has spoken to Priscila, the patient's mother in law and both are in agreement that Anais will be the point of contact and alternate medical decision maker on behalf of the patient. Bed side nurse was updated. Anais speaking to medical team. Next of kin: sister, Anais Vazquez
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
[2024-11-08 10:55] LABS: Sodium 142 mMol/L (136-145)
--- NOTE | 2024-11-08 11:00 | RESP.EEG ---
EEG COMPLETED AND READY FOR REVIEW.
[2024-11-08] MEDS: PRE MIXED IV (12:23)
[2024-11-08] MEDS: SODIUM CHLORIDE 3% IV (12:23)
[2024-11-08 12:57] LABS: Alanine Aminotransferase 66 U/L (10-49); Albumin, Serum 3.2 gm/dL (3.5-5.0); Albumin/Globulin Ratio 1.3 (1.2-2.2); Alkaline Phosphatase 73 U/L (46-116); Anion Gap 8 (7-16); Aspartate Amino Transferase 83 U/L (0-34); BUN/Creatinine Ratio 15 Ratio (12-20); Bilirubin,Total 0.6 mg/dL (0.3-1.2); Blood Urea Nitrogen 29 mg/dL (9-23); Calcium 7.9 mg/dL (8.3-10.6); Calcium (Corrected) 8.5 mg/dL (8.5-10.1); Carbon Dioxide 24.7 mMol/L (20.0-31.0); Chloride 111 mMol/L (98-107); Creatinine (Component) 1.9 mg/dL (0.6-1.3); Estimated Creatinine Clearance 39.1 mL/min (>60); Globulin 2.4 gm/dL (2.3-3.5); Glucose 107 mg/dL (74-106); Osmolality,Calculated 292 (275-295); Sodium 144 mMol/L (136-145); Total Protein 5.6 gm/dL (5.7-8.2); eGFR 36 See Note
[2024-11-08 14:01] LABS: Sodium 146 mMol/L (136-145)
--- NOTE | 2024-11-08 14:41 | PC.SS ---
SS update: Decision maker transitioned to patient's sister, Anais. Patient undergoing EEG to assess brain activity.
[2024-11-08 16:41] LABS: Sodium 147 mMol/L (136-145)
[2024-11-08 18:18] LABS: Sodium 148 mMol/L (136-145)
[2024-11-08] MEDS: SODIUM CHLORIDE 3%(Hypertonic) 500 ML in PRE-MIXED 1 BAG 50 ML IV (18:22)
[2024-11-08 21:37] LABS: Sodium 149 mMol/L (136-145)
[2024-11-08 22:20] LABS: Sodium 149 mMol/L (136-145)
--- NOTE | 2024-11-08 22:29 | ESPR_ITS ---
Documentation for date of: 11/08/24 Subjective Subjective Interval history: Patient was seen in ICU today, trached and on ventilatory support, intermittent twitches in the right UE. Eyes gazed up. Exam - Neurology Vital Signs Temp Pulse Resp BP Pulse Ox O2 Del Method O2 Flow Rate 99.2 F 115 H 22 H 121/62 98 Mechanical Ventilation 35 11/08/24 20:00 11/08/24 22:10 11/08/24 06:20 11/08/24 22:01 11/08/24 22:10 11/08/24 06:00 11/08/24 02:00 FiO2 30 11/08/24 20:00 Narrative Exam General: intubated, sedated, mechanically ventilated HEENT: ET tube in tracheostomy site, site C/D/I, NC/AT, mucous membranes moist, bilateral sclera anicteric Cardiovascular: regular rate and rhythm, S1/S2 present, no murmurs appreciated Pulmonary: clear to auscultation bilaterally, no rales/rhonchi/wheezes Abdominal: soft, non-distended, normal bowel sounds present Musculoskeletal: no peripheral edema Skin: warm and dry, intact, no rashes Neuro: comatose, brainstem reflexes intact: positive corneal reflex, cough reflex, oculocephalic reflex, retracts to painful stimuli inconsistently with posturing at times, Objective Labs 11/08/24 04:44 11/08/24 21:57 Labs: Laboratory Results - last 24 hr 11/08/24 11/08/24 11/08/24 04:44 10:35 12:27 WBC 12.6 H D RBC 3.28 L Hgb 10.1 L Hct 30.1 L MCV 92 MCH 30.8 MCHC 33.6 RDW Std Deviation 43.8 Plt Count 150 Neut % (Auto) 84 H Lymph % (Auto) 9 L [place] % (Auto) 6 Eos % (Auto) 0 Baso % (Auto) 0 Neut # (Auto) 10.6 H Lymph # (Auto) 1.1 [place] # (Auto) 0.7 Eos # (Auto) 0.0 Baso # (Auto) 0.0 Immature Gran # (Auto) 0.07 H Absolute Nucleated RBC 0.00 Immature Gran % 1 H Nucleated RBC % 0 Sodium 141 142 144 Potassium 3.3 L D 4.0 D Chloride 105 111 H Carbon Dioxide 26.8 24.7 Anion Gap 9 8 BUN 29 H 29 H Creatinine 1.8 H D 1.9 H Estim Creat Clear Calc 48.8 L 39.1 L eGFR 38 L 36 L BUN/Creatinine Ratio 16 15 Glucose 103 107 H Calculated Osmolality 287 292 Calcium 7.7 L 7.9 L Corrected Calcium 8.6 8.5 Phosphorus 2.7 Magnesium 2.6 Total Bilirubin 0.4 0.6 AST 81 H 83 H ALT 71 H 66 H Alkaline Phosphatase 66 73 Total Protein 5.1 L 5.6 L Albumin 2.9 L 3.2 L Globulin 2.2 L 2.4 Albumin/Globulin Ratio 1.3 1.3 11/08/24 11/08/24 11/08/24 13:40 16:16 18:00 WBC RBC Hgb Hct MCV MCH MCHC RDW Std Deviation Plt Count Neut % (Auto) Lymph % (Auto) [place] % (Auto) Eos % (Auto) Baso % (Auto) Neut # (Auto) Lymph # (Auto) [place] # (Auto) Eos # (Auto) Baso # (Auto) Immature Gran # (Auto) Absolute Nucleated RBC Immature Gran % Nucleated RBC % Sodium 146 H 147 H 148 H Potassium Chloride Carbon Dioxide Anion Gap BUN Creatinine Estim Creat Clear Calc eGFR BUN/Creatinine Ratio Glucose Calculated Osmolality Calcium Corrected Calcium Phosphorus Magnesium Total Bilirubin AST ALT Alkaline Phosphatase Total Protein Albumin Globulin Albumin/Globulin Ratio 11/08/24 11/08/24 11/08/24 20:40 20:40 21:57 WBC RBC Hgb Hct MCV MCH MCHC RDW Std Deviation Plt Count Neut % (Auto) Lymph % (Auto) [place] % (Auto) Eos % (Auto) Baso % (Auto) Neut # (Auto) Lymph # (Auto) [place] # (Auto) Eos # (Auto) Baso # (Auto) Immature Gran # (Auto) Absolute Nucleated RBC Immature Gran % Nucleated RBC % Sodium 149 H Cancelled 149 H Potassium Chloride Carbon Dioxide Anion Gap BUN Creatinine Estim Creat Clear Calc eGFR BUN/Creatinine Ratio Glucose Calculated Osmolality Calcium Corrected Calcium Phosphorus Magnesium Total Bilirubin AST ALT Alkaline Phosphatase Total Protein Albumin Globulin Albumin/Globulin Ratio ABG Interpretation ABG results: 11/06/24 11/06/24 11/06/24 03:55 10:50 12:55 ABG pH 7.32 L 7.33 L ABG pCO2 51 H 49 H ABG pO2 161 H 201 H D ABG HCO3 26 26 ABG O2 Saturation 100 H 100 H ABG Base Excess -1 -1 VBG pH 6.98 L VBG pCO2 81 H VBG pO2 37 VBG Base Excess -14 L 11/06/24 11/07/24 16:35 05:28 ABG pH 7.40 7.42 ABG pCO2 41 41 ABG pO2 140 H D 130 H ABG HCO3 26 27 H ABG O2 Saturation 100 H 100 H ABG Base Excess 1 2 VBG pH VBG pCO2 VBG pO2 VBG Base Excess Assessment & Plan Additional Assessment & Plan Additional Plan: #Seizures: likely from old infarct/hypoxic injury #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 EEG: showed some slowing, not consistent - Repeat CT head showed worsening cerebral edema overall prognosis: poor for meaningful neurological recovery. Recommendations: -Hyperventilation, hypertonic saline - PRN lorazepam - Keppra 500 mg BID. - hold off MR brain as the mgt does not change.
--- NOTE | 2024-11-08 22:33 | PC.NURSE ---
[employer]WORK CALLED FOR A UPDATE ON THE PATIENT, RN GAVE UPDATE AND DONOR ASK FOR A CALL BACK IF ANY CHANGES OCCUR.
[2024-11-09] VITALS (44 sets, daily range): BP systolic 110–183; BP diastolic 73–139; PULSE 94–128; RESP 19–45; TEMP 36.3–39.9; O2SAT 87–100; BMI 34.7
[2024-11-09 01:40] LABS: Sodium 150 mMol/L (136-145)
[2024-11-09 03:45] LABS: Sodium 150 mMol/L (136-145)
[2024-11-09 05:42] LABS: Basophils % (Auto) 0 % (0-2.5); Eosinophils % (Auto) 0 % (0-10); Hematocrit 31.4 % (36.0-46.0); Hemoglobin 10.2 g/dL (12.0-16.0); Immature Granulocytes % (Auto) 1 % (0-0); Immature Granulocytes Auto 0.09 Thou/mm3 (0.00-0.00); Lymphocytes # (Auto) 0.7 Thou/mm3 (1.0-4.8); Lymphocytes % (Auto) 5 % (10-50); Mean Corpuscular HGB Conc 32.5 g/dl (31.0-37.0); Mean Corpuscular Hemoglobin 30.7 pg (25.0-35.0); Mean Corpuscular Volume 95 fL (80-100); Monocytes # (Auto) 0.9 Thou/mm3 (0.0-0.8); Monocytes % (Auto) 6 % (0-12); Neutrophils # (Auto) 12.6 Thou/mm3 (1.8-7.7); Neutrophils % (Auto) 88 % (37-80); Nucleated Red Blood Cell % 0 /100 WBC (0); Platelet Count 161 Thou/mm3 (140-440); RDW Standard Deviation 45.9 fL (36.4-46.3); Red Blood Count 3.32 Miln/mm3 (4.00-5.20); White Blood Count 14.3 Thou/mm3 (3.6-11.0)
[2024-11-09] MEDS: SODIUM CHLORIDE 3%(Hypertonic) 500 ML in PRE-MIXED 1 BAG 50 ML IV (05:55)
[2024-11-09 06:08] LABS: Alanine Aminotransferase 54 U/L (10-49); Albumin, Serum 3.2 gm/dL (3.5-5.0); Albumin/Globulin Ratio 1.3 (1.2-2.2); Alkaline Phosphatase 78 U/L (46-116); Anion Gap 10 (7-16); Aspartate Amino Transferase 61 U/L (0-34); BUN/Creatinine Ratio 16 Ratio (12-20); Bilirubin,Total 0.6 mg/dL (0.3-1.2); Blood Urea Nitrogen 34 mg/dL (9-23); Calcium 7.9 mg/dL (8.3-10.6); Calcium (Corrected) 8.5 mg/dL (8.5-10.1); Carbon Dioxide 24.2 mMol/L (20.0-31.0); Chloride 118 mMol/L (98-107); Creatinine (Component) 2.1 mg/dL (0.6-1.3); Estimated Creatinine Clearance 35.4 mL/min (>60); Globulin 2.4 gm/dL (2.3-3.5); Glucose 113 mg/dL (74-106); Magnesium 2.4 mg/dL (1.6-2.6); Osmolality,Calculated 310 (275-295); Sodium 152 mMol/L (136-145); Total Protein 5.6 gm/dL (5.7-8.2); eGFR 32 See Note
[2024-11-09] MEDS: ALBUTEROL/IPRATROPIUM (Duoneb) RT SOL 3 ML NEBU INH (06:39)
[2024-11-09 07:25] LABS: Sodium 152 mMol/L (136-145)
[2024-11-09] MEDS: HEPARIN SOD INJ 5000 UNIT/ML VIAL SC ×2 (08:38→22:35)
[2024-11-09] MEDS: PANTOPRAZOLE INJ 40 MG VIAL IV (08:38)
[2024-11-09] MEDS: levETIRAcetam INJ 100 MG/ML VIAL 5ML 500 MG IVP ×2 (08:38→21:10)
--- NOTE | 2024-11-09 08:52 | XR_ITS ---
Examination: CT brain head without contrast. 2-D sagittal coronal reconstructions Date and time of exam:November 09, 2024 0953 hrs. Indications: History cardiopulmonary arrest CTDI: vol (mGy):51.4 DLP: (mGycm):1025 Technique: Multiple CT axial sections of the brain have been obtained, 5 mm slice thickness. Contrast has not been administered. 2-D sagittal, coronal reconstructions have been obtained Low dose protocols were performed. One or more of the following dose reduction techniques were used; automated exposure control, adjustment of the mA and/or KV according to patient size, use of iterative reconstruction technique. Findings: Significant generalized cerebral edema Stable asymmetric enlargement left lateral ventricular system No acute hemorrhage Fourth ventricle midline Cranial vault intact Impression: Significant generalized cerebral edema
[2024-11-09] MEDS: MIDAZOLAM INJ 1 MG/ML VIAL 2 ML 4 MG IV (09:39)
[2024-11-09] MEDS: fentaNYL CIT INJ 50 mCg/ML AMP 2ML 100 MCG IVP (09:42)
[2024-11-09 09:47] LABS: Sodium 152 mMol/L (136-145)
[2024-11-09 11:25] LABS: Sodium 157 mMol/L (136-145)
[2024-11-09 13:09] LABS: Sodium 156 mMol/L (136-145)
[2024-11-09] MEDS: SENNA TABLET 1 TAB PO (13:09)
[2024-11-09] MEDS: DEXTROSE 5%-WATER 500 ML 250 ML IV (13:12)
--- NOTE | 2024-11-09 14:53 | PC.RT ---
When I was attempting to do Trach care and removing the opti-foam pad surrounding pt's trach old brown gauze that was inside her stoma was stuck to the opti-foam pad. Per report given to me from RT Brandon we we're not suppose to remove the gauze and only remove opti-pad and change trach collar. Unintentionally some gauze was removed when the pad was removed. Informed Charge Nurse Di, and RN in charge of pt Ashtyn.
[2024-11-09 15:33] LABS: Sodium 150 mMol/L (136-145)
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
[2024-11-09 17:49] LABS: Sodium 150 mMol/L (136-145)
--- NOTE | 2024-11-09 17:50 | PC.NURSE ---
at 1059 Spoke with Elizabeth at [facility] to give up date
--- NOTE | 2024-11-09 17:57 | PC.NURSE ---
at 0800 pt tracheostomy wound noted to have dark colored drainage, Dr. Randle notified
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
[2024-11-09 19:56] LABS: Sodium 149 mMol/L (136-145)
[2024-11-09] MEDS: ACETAMINOPHEN SOL 325 MG/10 ML UDC 650 MG GT ×2 (20:14→22:12)
[2024-11-09 21:13] LABS: Lactate (Lactic Acid) 1.5 mMol/L (0.4-2.0)
[2024-11-09] MEDS: AMPICILLIN/SULBAC INJ 3 GM in SODIUM CHLORIDE 0.9% (POP) 100 ML IV (21:14)
[2024-11-09 21:27] LABS: Alanine Aminotransferase 52 U/L (10-49); Albumin, Serum 3.6 gm/dL (3.5-5.0); Albumin/Globulin Ratio 1.4 (1.2-2.2); Alkaline Phosphatase 81 U/L (46-116); Anion Gap 10 (7-16); Aspartate Amino Transferase 82 U/L (0-34); BUN/Creatinine Ratio 16 Ratio (12-20); Bilirubin,Total 0.6 mg/dL (0.3-1.2); Blood Urea Nitrogen 33 mg/dL (9-23); Calcium (Corrected) 8.3 mg/dL (8.5-10.1); Carbon Dioxide 22.1 mMol/L (20.0-31.0); Chloride 118 mMol/L (98-107); Creatinine (Component) 2.1 mg/dL (0.6-1.3); Estimated Creatinine Clearance 41.5 mL/min (>60); Globulin 2.5 gm/dL (2.3-3.5); Glucose 138 mg/dL (74-106); Osmolality,Calculated 307 (275-295); Potassium 3.9 mMol/L (3.4-5.1); Sodium 150 mMol/L (136-145); Total Protein 6.1 gm/dL (5.7-8.2); eGFR 32 See Note
--- NOTE | 2024-11-09 23:32 | VVPN_ITS ---
Telemedicine visit statement This visit was conducted with the use of interactive audio and video telecommunications system that permits real time communication between the patient and the provider. Patient's verbal consent for virtual visit was obtained on 11/09/24 at 2332. Documentation for date of: 11/09/24 Subjective Subjective Interval history: Patient is in ICU, no changes/events overnight. Continue to remain trached and on ventilatory support Virtual exam Vital Signs Temp Pulse Resp BP Pulse Ox O2 Del Method O2 Flow Rate 102.8 F H 123 H 19 142/96 H 98 Mechanical Ventilation 35 11/09/24 23:19 11/09/24 23:19 11/09/24 06:27 11/09/24 23:19 11/09/24 23:19 11/09/24 20:00 11/08/24 02:00 FiO2 40 11/09/24 20:00 Objective Labs 11/12/24 07:30 11/13/24 00:19 Labs: Laboratory Results - last 24 hr 11/09/24 11/09/24 11/09/24 00:53 03:13 05:16 WBC 14.3 H RBC 3.32 L Hgb 10.2 L Hct 31.4 L MCV 95 MCH 30.7 MCHC 32.5 RDW Std Deviation 45.9 Plt Count 161 Neut % (Auto) 88 H Lymph % (Auto) 5 L [place] % (Auto) 6 Eos % (Auto) 0 Baso % (Auto) 0 Neut # (Auto) 12.6 H Lymph # (Auto) 0.7 L [place] # (Auto) 0.9 H Eos # (Auto) 0.0 Baso # (Auto) 0.0 Immature Gran # (Auto) 0.09 H Absolute Nucleated RBC 0.00 Immature Gran % 1 H Nucleated RBC % 0 Sodium 150 H 150 H 152 H Potassium 4.0 Chloride 118 H Carbon Dioxide 24.2 Anion Gap 10 BUN 34 H Creatinine 2.1 H Estim Creat Clear Calc 35.4 L eGFR 32 L BUN/Creatinine Ratio 16 Glucose 113 H Calculated Osmolality 310 H Lactic Acid Calcium 7.9 L Corrected Calcium 8.5 Magnesium 2.4 Total Bilirubin 0.6 AST 61 H ALT 54 H Alkaline Phosphatase 78 Total Protein 5.6 L Albumin 3.2 L Globulin 2.4 Albumin/Globulin Ratio 1.3 11/09/24 11/09/24 11/09/24 06:55 09:11 11:00 WBC RBC Hgb Hct MCV MCH MCHC RDW Std Deviation Plt Count Neut % (Auto) Lymph % (Auto) [place] % (Auto) Eos % (Auto) Baso % (Auto) Neut # (Auto) Lymph # (Auto) [place] # (Auto) Eos # (Auto) Baso # (Auto) Immature Gran # (Auto) Absolute Nucleated RBC Immature Gran % Nucleated RBC % Sodium 152 H 152 H 157 H Potassium Chloride Carbon Dioxide Anion Gap BUN Creatinine Estim Creat Clear Calc eGFR BUN/Creatinine Ratio Glucose Calculated Osmolality Lactic Acid Calcium Corrected Calcium Magnesium Total Bilirubin AST ALT Alkaline Phosphatase Total Protein Albumin Globulin Albumin/Globulin Ratio 11/09/24 11/09/24 11/09/24 12:50 15:10 17:13 WBC RBC Hgb Hct MCV MCH MCHC RDW Std Deviation Plt Count Neut % (Auto) Lymph % (Auto) [place] % (Auto) Eos % (Auto) Baso % (Auto) Neut # (Auto) Lymph # (Auto) [place] # (Auto) Eos # (Auto) Baso # (Auto) Immature Gran # (Auto) Absolute Nucleated RBC Immature Gran % Nucleated RBC % Sodium 156 H 150 H 150 H Potassium Chloride Carbon Dioxide Anion Gap BUN Creatinine Estim Creat Clear Calc eGFR BUN/Creatinine Ratio Glucose Calculated Osmolality Lactic Acid Calcium Corrected Calcium Magnesium Total Bilirubin AST ALT Alkaline Phosphatase Total Protein Albumin Globulin Albumin/Globulin Ratio 11/09/24 11/09/24 11/09/24 19:23 20:55 21:01 WBC RBC Hgb Hct MCV MCH MCHC RDW Std Deviation Plt Count Neut % (Auto) Lymph % (Auto) [place] % (Auto) Eos % (Auto) Baso % (Auto) Neut # (Auto) Lymph # (Auto) [place] # (Auto) Eos # (Auto) Baso # (Auto) Immature Gran # (Auto) Absolute Nucleated RBC Immature Gran % Nucleated RBC % Sodium 149 H 150 H Potassium 3.9 Chloride 118 H Carbon Dioxide 22.1 Anion Gap 10 BUN 33 H Creatinine 2.1 H Estim Creat Clear Calc 41.5 L eGFR 32 L BUN/Creatinine Ratio 16 Glucose 138 H Calculated Osmolality 307 H Lactic Acid 1.5 Calcium 8.0 L Corrected Calcium 8.3 L Magnesium Total Bilirubin 0.6 AST 82 H ALT 52 H Alkaline Phosphatase 81 Total Protein 6.1 Albumin 3.6 Globulin 2.5 Albumin/Globulin Ratio 1.4 ABG Interpretation ABG results: 11/06/24 11/06/24 11/06/24 03:55 10:50 12:55 ABG pH 7.32 L 7.33 L ABG pCO2 51 H 49 H ABG pO2 161 H 201 H D ABG HCO3 26 26 ABG O2 Saturation 100 H 100 H ABG Base Excess -1 -1 VBG pH 6.98 L VBG pCO2 81 H VBG pO2 37 VBG Base Excess -14 L 11/06/24 11/07/24 16:35 05:28 ABG pH 7.40 7.42 ABG pCO2 41 41 ABG pO2 140 H D 130 H ABG HCO3 26 27 H ABG O2 Saturation 100 H 100 H ABG Base Excess 1 2 VBG pH VBG pCO2 VBG pO2 VBG Base Excess Assessment & Plan Assessment #Seizures: likely from old infarct/hypoxic injury #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 EEG: showed some slowing, not consistent - Repeat CT head showed worsening cerebral edema overall prognosis: poor for meaningful neurological recovery. Recommendations: -Hyperventilation, hypertonic saline - PRN lorazepam - Keppra 500 mg BID. - hold off MR brain as the mgt does not change.
--- NOTE | 2024-11-09 23:33 | XR_ITS ---
Examination: AP chest single view Technique one AP portable semiupright chest single view Exam date and time: November 09, 2024 11:44 PM Comparison November 07, 2024 Indications: Worsening respiratory failure today. Findings: Significant bilateral pneumonia Mild enlargement cardiac contour Tracheostomy tube tip approximately 3.9 cm above shannon Orogastric tube is coiled in the stomach The osseous structures are intact Impression: Significant bilateral pneumonia
[2024-11-09 23:58] LABS: Sodium 152 mMol/L (136-145)
[2024-11-10] VITALS (103 sets, daily range): BP systolic 109–198; BP diastolic 70–131; PULSE 102–136; RESP 12–34; TEMP 36.5–39; O2SAT 80–100
[2024-11-10] MEDS: AMPICILLIN/SULBAC INJ 3 GM in SODIUM CHLORIDE 0.9% (POP) 100 ML IV ×2 (00:41→05:38)
[2024-11-10 00:53] LABS: Procalcitonin 0.15 ng/ml (0.0-0.49)
[2024-11-10 03:08] LABS: Sodium 153 mMol/L (136-145)
[2024-11-10 05:40] LABS: Alanine Aminotransferase 55 U/L (10-49); Albumin, Serum 3.4 gm/dL (3.5-5.0); Albumin/Globulin Ratio 1.3 (1.2-2.2); Alkaline Phosphatase 94 U/L (46-116); Anion Gap 12 (7-16); Aspartate Amino Transferase 83 U/L (0-34); BUN/Creatinine Ratio 19 Ratio (12-20); Bilirubin,Total 0.6 mg/dL (0.3-1.2); Blood Urea Nitrogen 34 mg/dL (9-23); Calcium 8.1 mg/dL (8.3-10.6); Calcium (Corrected) 8.6 mg/dL (8.5-10.1); Carbon Dioxide 24.4 mMol/L (20.0-31.0); Chloride 119 mMol/L (98-107); Creatinine (Component) 1.8 mg/dL (0.6-1.3); Estimated Creatinine Clearance 48.4 mL/min (>60); Globulin 2.7 gm/dL (2.3-3.5); Glucose 121 mg/dL (74-106); Magnesium 1.9 mg/dL (1.6-2.6); Osmolality,Calculated 315 (275-295); Potassium 4.1 mMol/L (3.4-5.1); Sodium 155 mMol/L (136-145); Total Protein 6.1 gm/dL (5.7-8.2); eGFR 38 See Note
[2024-11-10 06:02] LABS: Basophils # (Auto) 0.1 Thou/mm3 (0.0-0.2); Basophils % (Auto) 0 % (0-2.5); Eosinophils # (Auto) 0.1 Thou/mm3 (0.0-0.5); Eosinophils % (Auto) 0 % (0-10); Hemoglobin 12.6 g/dL (12.0-16.0); Immature Granulocytes % (Auto) 1 % (0-0); Immature Granulocytes Auto 0.11 Thou/mm3 (0.00-0.00); Lymphocytes # (Auto) 1.7 Thou/mm3 (1.0-4.8); Lymphocytes % (Auto) 9 % (10-50); Mean Corpuscular HGB Conc 30.7 g/dl (31.0-37.0); Mean Corpuscular Hemoglobin 30.6 pg (25.0-35.0); Mean Corpuscular Volume 100 fL (80-100); Monocytes % (Auto) 5 % (0-12); Neutrophils # (Auto) 17.1 Thou/mm3 (1.8-7.7); Neutrophils % (Auto) 85 % (37-80); Nucleated Red Blood Cell % 0 /100 WBC (0); Platelet Count 280 Thou/mm3 (140-440); RDW Standard Deviation 49.4 fL (36.4-46.3); Red Blood Count 4.12 Miln/mm3 (4.00-5.20)
[2024-11-10 06:59] LABS: Sodium 153 mMol/L (136-145)
[2024-11-10 08:48] LABS: Sodium 152 mMol/L (136-145)
[2024-11-10] MEDS: levETIRAcetam INJ 100 MG/ML VIAL 5ML 500 MG IVP ×2 (08:58→21:01)
[2024-11-10] MEDS: PANTOPRAZOLE INJ 40 MG VIAL IV (08:58)
[2024-11-10] MEDS: HEPARIN SOD INJ 5000 UNIT/ML VIAL SC ×2 (09:04→21:01)
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
[2024-11-10] MEDS: MORPHINE SULF INJ 10 MG/ML VIAL 4 MG IVP (10:17)
[2024-11-10 10:23] LABS: Sodium 154 mMol/L (136-145)
[2024-11-10] MEDS: fentaNYL 2,500 MCG/250 ML BAG 2,500 MCG/250 ML BAG IV (11:57)
[2024-11-10] MEDS: ALBUTEROL/IPRATROPIUM (Duoneb) RT SOL 3 ML NEBU INH ×4 (12:06→23:00)
[2024-11-10] MEDS: POLYETHYLENE GLYCOL 17 GM PACKET NG (12:16)
[2024-11-10 12:43] LABS: Sodium 154 mMol/L (136-145)
[2024-11-10] MEDS: PIPER/TAZO INJ 3.375 GM in SODIUM CHLORIDE 0.9% (Popper) 50 ML IV ×2 (14:30→21:19)
[2024-11-10 16:31] LABS: Sodium 152 mMol/L (136-145)
[2024-11-10] MEDS: LORazepam 2 MG/ML VIAL IVP (18:46)
[2024-11-10] MEDS: ACETAMINOPHEN SOL 325 MG/10 ML UDC 650 MG GT (18:52)
[2024-11-10 19:55] LABS: Base Excess -6 (-3-3); HCO3 20 mEq/L (20-26); Inspired Oxygen, FIO2 65 %; O2 Saturation 96 % (91-98); PCO2 41 mmHg (32.0-48.0); PO2 74 mmHg (83-108)
[2024-11-10 19:57] LABS: Allen Test Performed/OK; Puncture Site Right Radial
[2024-11-10 21:44] LABS: Sodium 153 mMol/L (136-145)
[2024-11-11] VITALS (46 sets, daily range): BP systolic 89–163; BP diastolic 70–116; PULSE 104–135; RESP 5–272; TEMP 37.1–38.8; O2SAT 88–100; BMI 33.5
[2024-11-11 00:55] LABS: Sodium 155 mMol/L (136-145)
[2024-11-11] MEDS: ALBUTEROL/IPRATROPIUM (Duoneb) RT SOL 3 ML NEBU INH ×6 (02:07→23:35)
[2024-11-11] MEDS: ACETAMINOPHEN SOL 325 MG/10 ML UDC 650 MG GT ×2 (03:52→08:31)
[2024-11-11] MEDS: PIPER/TAZO INJ 3.375 GM in SODIUM CHLORIDE 0.9% (Popper) 50 ML IV ×3 (05:41→21:34)
[2024-11-11 06:03] LABS: Basophils % (Auto) 0 % (0-2.5); Eosinophils % (Auto) 0 % (0-10); Hematocrit 34.2 % (36.0-46.0); Hemoglobin 10.9 g/dL (12.0-16.0); Immature Granulocytes % (Auto) 1 % (0-0); Immature Granulocytes Auto 0.23 Thou/mm3 (0.00-0.00); Lymphocytes % (Auto) 6 % (10-50); Mean Corpuscular HGB Conc 31.9 g/dl (31.0-37.0); Mean Corpuscular Hemoglobin 30.7 pg (25.0-35.0); Mean Corpuscular Volume 96 fL (80-100); Monocytes # (Auto) 0.8 Thou/mm3 (0.0-0.8); Monocytes % (Auto) 5 % (0-12); Neutrophils # (Auto) 14.3 Thou/mm3 (1.8-7.7); Neutrophils % (Auto) 88 % (37-80); Nucleated Red Blood Cell % 0 /100 WBC (0); Platelet Count 189 Thou/mm3 (140-440); RDW Standard Deviation 47.8 fL (36.4-46.3); Red Blood Count 3.55 Miln/mm3 (4.00-5.20); White Blood Count 16.4 Thou/mm3 (3.6-11.0)
[2024-11-11 06:30] LABS: Alanine Aminotransferase 39 U/L (10-49); Albumin, Serum 3.1 gm/dL (3.5-5.0); Albumin/Globulin Ratio 1.2 (1.2-2.2); Alkaline Phosphatase 69 U/L (46-116); Anion Gap 13 (7-16); Aspartate Amino Transferase 49 U/L (0-34); BUN/Creatinine Ratio 25 Ratio (12-20); Bilirubin,Total 0.5 mg/dL (0.3-1.2); Blood Urea Nitrogen 43 mg/dL (9-23); Calcium (Corrected) 8.7 mg/dL (8.5-10.1); Carbon Dioxide 23.1 mMol/L (20.0-31.0); Chloride 119 mMol/L (98-107); Creatinine (Component) 1.7 mg/dL (0.6-1.3); Estimated Creatinine Clearance 50.2 mL/min (>60); Globulin 2.6 gm/dL (2.3-3.5); Glucose 150 mg/dL (74-106); Osmolality,Calculated 321 (275-295); Potassium 3.4 mMol/L (3.4-5.1); Sodium 155 mMol/L (136-145); Total Protein 5.7 gm/dL (5.7-8.2); eGFR 41 See Note
[2024-11-11] MEDS: levETIRAcetam INJ 100 MG/ML VIAL 5ML 500 MG IVP ×2 (08:30→21:26)
[2024-11-11] MEDS: HEPARIN SOD INJ 5000 UNIT/ML VIAL SC ×2 (08:30→21:34)
[2024-11-11] MEDS: PANTOPRAZOLE INJ 40 MG VIAL IV (08:30)
[2024-11-11] MEDS: POLYETHYLENE GLYCOL 17 GM PACKET NG (08:31)
[2024-11-11 08:42] LABS: Sodium 153 mMol/L (136-145)
[2024-11-11] MEDS: fentaNYL 2,500 MCG/250 ML BAG 2,500 MCG/250 ML BAG 17.5 MCG IV (08:58)
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
[2024-11-11] MEDS: TETRACAINE PF OP SOL 0.5% 4 ML DRPETTE 2 DROP BOTH EYES (11:43)
[2024-11-11 12:35] LABS: Sodium 152 mMol/L (136-145)
--- NOTE | 2024-11-11 14:52 | PC.NURSE ---
Pt noted to not have any urine output since 0700. Bladder scan performed resulting in 707cc of urine in bladder.
[2024-11-11] MEDS: PROPRANOLOL INJ 1 MG/ML AMP IVP (15:35)
[2024-11-11 17:05] LABS: Sodium 153 mMol/L (136-145)
--- NOTE | 2024-11-11 23:50 | ESPR_ITS ---
Documentation for date of: 11/11/24 Subjective Subjective Interval history: Patient was seen in ICU today, trached and on ventilatory support, intermittent twitches in the right UE. Eyes gazed up. Exam - Neurology Vital Signs Temp Pulse Resp BP Pulse Ox O2 Del Method O2 Flow Rate 100.3 F 104 H 26 H 163/116 H 99 Mechanical Ventilation 35 11/11/24 20:00 11/11/24 22:00 11/11/24 18:30 11/11/24 22:00 11/11/24 22:00 11/11/24 04:00 11/08/24 02:00 FiO2 50 11/11/24 20:00 Narrative Exam General: intubated, sedated, mechanically ventilated HEENT: ET tube in tracheostomy site, site C/D/I, NC/AT, mucous membranes moist, bilateral sclera anicteric Cardiovascular: regular rate and rhythm, S1/S2 present, no murmurs appreciated Pulmonary: clear to auscultation bilaterally, no rales/rhonchi/wheezes Abdominal: soft, non-distended, normal bowel sounds present Musculoskeletal: no peripheral edema Skin: warm and dry, intact, no rashes Neuro: comatose, brainstem reflexes intact: positive corneal reflex, cough reflex, oculocephalic reflex, retracts to painful stimuli inconsistently with posturing at times, Objective Labs 11/12/24 07:30 11/13/24 00:19 Labs: Laboratory Results - last 24 hr 11/11/24 11/11/24 11/11/24 00:40 05:23 07:47 WBC 16.4 H RBC 3.55 L Hgb 10.9 L Hct 34.2 L MCV 96 MCH 30.7 MCHC 31.9 RDW Std Deviation 47.8 H Plt Count 189 D Neut % (Auto) 88 H Lymph % (Auto) 6 L Swisher % (Auto) 5 Eos % (Auto) 0 Baso % (Auto) 0 Neut # (Auto) 14.3 H Lymph # (Auto) 1.0 Swisher # (Auto) 0.8 Eos # (Auto) 0.0 Baso # (Auto) 0.0 Immature Gran # (Auto) 0.23 H Absolute Nucleated RBC 0.00 Immature Gran % 1 H Nucleated RBC % 0 Sodium 155 H 155 H 153 H Potassium 3.4 D Chloride 119 H Carbon Dioxide 23.1 Anion Gap 13 BUN 43 H Creatinine 1.7 H Estim Creat Clear Calc 50.2 L eGFR 41 L BUN/Creatinine Ratio 25 H Glucose 150 H Calculated Osmolality 321 H Calcium 8.0 L Corrected Calcium 8.7 Total Bilirubin 0.5 AST 49 H ALT 39 Alkaline Phosphatase 69 D Total Protein 5.7 Albumin 3.1 L Globulin 2.6 Albumin/Globulin Ratio 1.2 11/11/24 11/11/24 12:08 16:44 WBC RBC Hgb Hct MCV MCH MCHC RDW Std Deviation Plt Count Neut % (Auto) Lymph % (Auto) Swisher % (Auto) Eos % (Auto) Baso % (Auto) Neut # (Auto) Lymph # (Auto) Swisher # (Auto) Eos # (Auto) Baso # (Auto) Immature Gran # (Auto) Absolute Nucleated RBC Immature Gran % Nucleated RBC % Sodium 152 H 153 H Potassium Chloride Carbon Dioxide Anion Gap BUN Creatinine Estim Creat Clear Calc eGFR BUN/Creatinine Ratio Glucose Calculated Osmolality Calcium Corrected Calcium Total Bilirubin AST ALT Alkaline Phosphatase Total Protein Albumin Globulin Albumin/Globulin Ratio ABG Interpretation ABG results: 11/06/24 11/06/24 11/06/24 03:55 10:50 12:55 ABG pH 7.32 L 7.33 L ABG pCO2 51 H 49 H ABG pO2 161 H 201 H D ABG HCO3 26 26 ABG O2 Saturation 100 H 100 H ABG Base Excess -1 -1 VBG pH 6.98 L VBG pCO2 81 H VBG pO2 37 VBG Base Excess -14 L 11/06/24 11/07/24 11/10/24 16:35 05:28 19:42 ABG pH 7.40 7.42 7.30 L ABG pCO2 41 41 41 ABG pO2 140 H D 130 H 74 L ABG HCO3 26 27 H 20 ABG O2 Saturation 100 H 100 H 96 ABG Base Excess 1 2 -6 L VBG pH VBG pCO2 VBG pO2 VBG Base Excess Assessment & Plan Additional Assessment & Plan Additional Plan: #Seizures: likely from old infarct/hypoxic injury #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 EEG: showed some slowing, not consistent - Repeat CT head showed worsening cerebral edema overall prognosis: poor for meaningful neurological recovery. Recommendations: -Hyperventilation, hypertonic saline per protocol for cerebral edema management - PRN lorazepam - Keppra 500 mg BID. - hold off MR brain as the mgt does not change. Will consider doing repeat CT head and EEG tomorrow
[2024-11-12] VITALS (55 sets, daily range): BP systolic 98–166; BP diastolic 53–108; PULSE 100–118; RESP 5–29; TEMP 36.6–37.7; O2SAT 71–100; BMI 35.3
[2024-11-12 01:34] LABS: Sodium 152 mMol/L (136-145)
[2024-11-12] MEDS: ALBUTEROL/IPRATROPIUM (Duoneb) RT SOL 3 ML NEBU INH ×6 (03:10→22:57)
[2024-11-12] MEDS: PIPER/TAZO INJ 3.375 GM in SODIUM CHLORIDE 0.9% (Popper) 50 ML IV ×3 (05:22→21:30)
[2024-11-12] MEDS: fentaNYL 2,500 MCG/250 ML BAG 2,500 MCG/250 ML BAG 17.5 MCG IV (05:40)
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
[2024-11-12 08:16] LABS: Basophils # (Auto) 0.1 Thou/mm3 (0.0-0.2); Basophils % (Auto) 0 % (0-2.5); Eosinophils # (Auto) 0.1 Thou/mm3 (0.0-0.5); Eosinophils % (Auto) 1 % (0-10); Hematocrit 31.3 % (36.0-46.0); Hemoglobin 9.8 g/dL (12.0-16.0); Immature Granulocytes % (Auto) 2 % (0-0); Immature Granulocytes Auto 0.43 Thou/mm3 (0.00-0.00); Lymphocytes # (Auto) 1.2 Thou/mm3 (1.0-4.8); Lymphocytes % (Auto) 6 % (10-50); Mean Corpuscular HGB Conc 31.3 g/dl (31.0-37.0); Mean Corpuscular Hemoglobin 30.5 pg (25.0-35.0); Mean Corpuscular Volume 98 fL (80-100); Monocytes # (Auto) 0.6 Thou/mm3 (0.0-0.8); Monocytes % (Auto) 3 % (0-12); Neutrophils # (Auto) 18.6 Thou/mm3 (1.8-7.7); Neutrophils % (Auto) 89 % (37-80); Nucleated Red Blood Cell % 0 /100 WBC (0); Platelet Count 190 Thou/mm3 (140-440); RDW Standard Deviation 50.5 fL (36.4-46.3); Red Blood Count 3.21 Miln/mm3 (4.00-5.20)
[2024-11-12 08:27] LABS: Alanine Aminotransferase 37 U/L (10-49); Albumin, Serum 3.1 gm/dL (3.5-5.0); Albumin/Globulin Ratio 1.2 (1.2-2.2); Alkaline Phosphatase 86 U/L (46-116); Anion Gap 10 (7-16); Aspartate Amino Transferase 60 U/L (0-34); BUN/Creatinine Ratio 27 Ratio (12-20); Bilirubin,Total 0.4 mg/dL (0.3-1.2); Blood Urea Nitrogen 40 mg/dL (9-23); Calcium 8.3 mg/dL (8.3-10.6); Carbon Dioxide 24.5 mMol/L (20.0-31.0); Chloride 120 mMol/L (98-107); Creatinine (Component) 1.5 mg/dL (0.6-1.3); Estimated Creatinine Clearance 57.4 mL/min (>60); Globulin 2.6 gm/dL (2.3-3.5); Glucose 109 mg/dL (74-106); Osmolality,Calculated 316 (275-295); Sodium 154 mMol/L (136-145); Total Protein 5.7 gm/dL (5.7-8.2); eGFR 48 See Note
[2024-11-12] MEDS: PANTOPRAZOLE INJ 40 MG VIAL IV (09:02)
[2024-11-12] MEDS: POLYETHYLENE GLYCOL 17 GM PACKET NG (09:02)
[2024-11-12] MEDS: levETIRAcetam INJ 100 MG/ML VIAL 5ML 500 MG IVP ×2 (09:02→21:29)
[2024-11-12] MEDS: SENNA TABLET 1 TAB PO (09:02)
[2024-11-12] MEDS: HEPARIN SOD INJ 5000 UNIT/ML VIAL SC ×2 (09:02→21:30)
[2024-11-12 12:47] LABS: Sodium 154 mMol/L (136-145)
--- NOTE | 2024-11-12 13:30 | PC.SS ---
Update: Patient remains on ventilator. NG tube in place for feedings. No skin issues present. Patient is not receiving pressor support. No scheduled procedures for today.
--- NOTE | 2024-11-12 14:13 | XR_ITS ---
Examination: CT brain head without contrast. 2-D sagittal coronal reconstructions Date and time of exam:November 12, 2024 1654 hours INDICATIONS: Status post cardiopulmonary arrest, CT scan November 09, 2024, November 07, 2024 diffuse cerebral edema CTDI: vol (mGy):58.2 DLP: (mGycm):1106 Technique: Multiple CT axial sections of the brain have been obtained, 5 mm slice thickness. Contrast has not been administered. 2-D sagittal, coronal reconstructions have been obtained Low dose protocols were performed. One or more of the following dose reduction techniques were used; automated exposure control, adjustment of the mA and/or KV according to patient size, use of iterative reconstruction technique. Findings: Diffuse severe generalized edema More pronounced edema and infarction in the right frontal parietal lobe, axial image 20, the area of low-density infarction measuring at least 36 mm in AP dimension Interval mass effect with shift of the frontal horns to the left at least 6 mm including mass effect upon the anterior cerebral falx IMPRESSION: Severe diffuse generalized edema More severe edema and infarction in the right frontal parietal lobe as above with shift of the frontal horns to the left at least 6 mm
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
[2024-11-12 18:50] LABS: Sodium 155 mMol/L (136-145)
--- NOTE | 2024-11-12 22:35 | PD.NEUROPROG ---
Documentation for date of: 11/12/24 Subjective Subjective Interval history: Patient was seen in ICU today, trached and on ventilatory support, intermittent shivering and eyes open on stimulation Exam - Neurology Vital Signs Temp Pulse Resp BP Pulse Ox O2 Del Method O2 Flow Rate 99.2 F 109 H 22 H 146/80 H 100 Mechanical Ventilation 35 11/12/24 20:00 11/12/24 21:00 11/12/24 18:19 11/12/24 21:00 11/12/24 21:00 11/12/24 07:01 11/08/24 02:00 FiO2 80 11/12/24 20:00 Narrative Exam General: Trached remains on mechanical ventilatory support, off of sedation since 2 PM HEENT: ET tube in tracheostomy site, site C/D/I, NC/AT, mucous membranes moist, bilateral sclera anicteric Cardiovascular: regular rate and rhythm, S1/S2 present, no murmurs appreciated Pulmonary: clear to auscultation bilaterally, no rales/rhonchi/wheezes Abdominal: soft, non-distended, normal bowel sounds present Musculoskeletal: no peripheral edema Skin: warm and dry, intact, no rashes Neuro: comatose, brainstem reflexes intact: positive corneal reflex, cough reflex, oculocephalic reflex, no response to painful stimulation in the extremities any longer Objective Labs 11/12/24 07:30 11/13/24 00:19 Labs: Laboratory Results - last 24 hr 11/12/24 11/12/24 11/12/24 00:50 07:30 12:15 WBC 21.0 H RBC 3.21 L Hgb 9.8 L Hct 31.3 L MCV 98 MCH 30.5 MCHC 31.3 RDW Std Deviation 50.5 H Plt Count 190 Neut % (Auto) 89 H Lymph % (Auto) 6 L [place] % (Auto) 3 Eos % (Auto) 1 Baso % (Auto) 0 Neut # (Auto) 18.6 H Lymph # (Auto) 1.2 [place] # (Auto) 0.6 Eos # (Auto) 0.1 Baso # (Auto) 0.1 Immature Gran # (Auto) 0.43 H Absolute Nucleated RBC 0.00 Immature Gran % 2 H Nucleated RBC % 0 Sodium 152 H 154 H 154 H Potassium 4.0 D Chloride 120 H Carbon Dioxide 24.5 Anion Gap 10 BUN 40 H Creatinine 1.5 H Estim Creat Clear Calc 57.4 L eGFR 48 L BUN/Creatinine Ratio 27 H Glucose 109 H Calculated Osmolality 316 H Calcium 8.3 Corrected Calcium 9.0 Total Bilirubin 0.4 AST 60 H ALT 37 Alkaline Phosphatase 86 D Total Protein 5.7 Albumin 3.1 L Globulin 2.6 Albumin/Globulin Ratio 1.2 11/12/24 18:13 WBC RBC Hgb Hct MCV MCH MCHC RDW Std Deviation Plt Count Neut % (Auto) Lymph % (Auto) [place] % (Auto) Eos % (Auto) Baso % (Auto) Neut # (Auto) Lymph # (Auto) [place] # (Auto) Eos # (Auto) Baso # (Auto) Immature Gran # (Auto) Absolute Nucleated RBC Immature Gran % Nucleated RBC % Sodium 155 H Potassium Chloride Carbon Dioxide Anion Gap BUN Creatinine Estim Creat Clear Calc eGFR BUN/Creatinine Ratio Glucose Calculated Osmolality Calcium Corrected Calcium Total Bilirubin AST ALT Alkaline Phosphatase Total Protein Albumin Globulin Albumin/Globulin Ratio ABG Interpretation ABG results: 11/06/24 11/06/24 11/06/24 03:55 10:50 12:55 ABG pH 7.32 L 7.33 L ABG pCO2 51 H 49 H ABG pO2 161 H 201 H D ABG HCO3 26 26 ABG O2 Saturation 100 H 100 H ABG Base Excess -1 -1 VBG pH 6.98 L VBG pCO2 81 H VBG pO2 37 VBG Base Excess -14 L 11/06/24 11/07/24 11/10/24 16:35 05:28 19:42 ABG pH 7.40 7.42 7.30 L ABG pCO2 41 41 41 ABG pO2 140 H D 130 H 74 L ABG HCO3 26 27 H 20 ABG O2 Saturation 100 H 100 H 96 ABG Base Excess 1 2 -6 L VBG pH VBG pCO2 VBG pO2 VBG Base Excess Assessment & Plan Additional Assessment & Plan Additional Plan: #Seizures: likely 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 Assessment: CT head on 11/06: old infarcts in distribution left MCA with mild ipsilateral ventricular dilatation, this area could the foci of patient's seizure activity tonic -movements in the right hemibody with decerebrate posturing. Now, Shivering and only responds to pain by opening her eyes. Initial EEG: showed some slowing, not consistent with clinical picture. - Repeat CT head from today showed worsening cerebral edema overall prognosis: poor for meaningful neurological recovery. Continue with the current management Will do the repeat EEG for prognosis after being off of fentanyl for at least 10 hours Patient's family was updated regarding the current condition and prognosis and the sister is still waiting to make the decision regarding CODE STATUS.
[2024-11-13] VITALS (35 sets, daily range): BP systolic 97–171; BP diastolic 59–95; PULSE 95–117; RESP 16–35; TEMP 37.2–37.6; O2SAT 87–100
[2024-11-13 00:40] LABS: Sodium 158 mMol/L (136-145)
[2024-11-13] MEDS: ALBUTEROL/IPRATROPIUM (Duoneb) RT SOL 3 ML NEBU INH ×6 (03:09→23:08)
[2024-11-13] MEDS: PIPER/TAZO INJ 3.375 GM in SODIUM CHLORIDE 0.9% (Popper) 50 ML IV ×3 (05:59→21:53)
--- NOTE | 2024-11-13 06:01 | RESP.EEG ---
EEG has been completed and is ready for MD Interpretation
[2024-11-13] MEDS: HEPARIN SOD INJ 5000 UNIT/ML VIAL SC ×2 (08:33→21:53)
[2024-11-13] MEDS: POLYETHYLENE GLYCOL 17 GM PACKET NG ×2 (08:34→21:56)
[2024-11-13] MEDS: PANTOPRAZOLE INJ 40 MG VIAL IV (08:34)
[2024-11-13] MEDS: levETIRAcetam INJ 100 MG/ML VIAL 5ML 500 MG IVP ×2 (08:34→21:53)
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
[2024-11-13] MEDS: DEXTROSE 5%-WATER 500 ML 80 ML IV (08:50)
[2024-11-13 10:25] LABS: Sodium 159 mMol/L (136-145)
--- NOTE | 2024-11-13 10:40 | PC.NURSE ---
Spoke with ZORAN from [facility]. Updates and latest vital signs given. Plan of care on-going.
--- NOTE | 2024-11-13 12:24 | PC.SS ---
DICE MANAGER received request from ICU cab worker to schedule goals of care meeting with patient's family. Patient's POC is sister Anais Vazquez. DICE MANAGER to follow up with request.
--- NOTE | 2024-11-13 12:28 | PC.SS ---
FINANCIAL SALES CONSULTANT conducted phone contact with patient?s sister, Anais Vazquez ; to schedule goals of care discussion.? Patient?s sister agreed to meet with ICU medical team at 05:00 pm today.? Per patient?s sister, brother (Edgar Vazquez) will be available by phone.? FINANCIAL SALES CONSULTANT updated ICU residential team.
[2024-11-13 13:02] LABS: Sodium 156 mMol/L (136-145)
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
[2024-11-13 18:53] LABS: Sodium 156 mMol/L (136-145)
--- NOTE | 2024-11-13 23:10 | PD.NEUROPROG ---
Documentation for date of: 11/13/24 Subjective Subjective Interval history: Patient was seen in ICU today, trached and on ventilatory support, intermittent shivering and eyes open on stimulation Exam - Neurology Vital Signs Temp Pulse Resp BP Pulse Ox O2 Del Method O2 Flow Rate 99.6 F 110 H 30 H 166/82 H 95 Mechanical Ventilation 35 11/13/24 04:01 11/13/24 19:00 11/13/24 18:53 11/13/24 19:00 11/13/24 19:00 11/12/24 07:01 11/08/24 02:00 FiO2 50 11/13/24 18:53 Narrative Exam General: Trached remains on mechanical ventilatory support, off of sedation since 2 PM yesterday HEENT: ET tube in tracheostomy site, site C/D/I, NC/AT, mucous membranes moist, bilateral sclera anicteric Cardiovascular: regular rate and rhythm, S1/S2 present, no murmurs appreciated Pulmonary: clear to auscultation bilaterally, no rales/rhonchi/wheezes Abdominal: soft, non-distended, normal bowel sounds present Musculoskeletal: no peripheral edema Skin: warm and dry, intact, no rashes Neuro: comatose, brainstem reflexes intact: positive corneal reflex, cough reflex, oculocephalic reflex, no response to painful stimulation in the extremities any longer Objective Labs 11/14/24 06:10 11/14/24 00:20 Labs: Laboratory Results - last 24 hr 11/13/24 11/13/24 11/13/24 00:19 07:40 12:17 Sodium 158 H 159 H 156 H 11/13/24 18:18 Sodium 156 H ABG Interpretation ABG results: 11/06/24 11/06/24 11/06/24 03:55 10:50 12:55 ABG pH 7.32 L 7.33 L ABG pCO2 51 H 49 H ABG pO2 161 H 201 H D ABG HCO3 26 26 ABG O2 Saturation 100 H 100 H ABG Base Excess -1 -1 VBG pH 6.98 L VBG pCO2 81 H VBG pO2 37 VBG Base Excess -14 L 11/06/24 11/07/24 11/10/24 16:35 05:28 19:42 ABG pH 7.40 7.42 7.30 L ABG pCO2 41 41 41 ABG pO2 140 H D 130 H 74 L ABG HCO3 26 27 H 20 ABG O2 Saturation 100 H 100 H 96 ABG Base Excess 1 2 -6 L VBG pH VBG pCO2 VBG pO2 VBG Base Excess Assessment & Plan Additional Assessment & Plan Additional Plan: #Seizures: likely 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 Assessment: CT head on 11/06: old infarcts in distribution left MCA with mild ipsilateral ventricular dilatation, this area could the foci of patient's seizure activity tonic -movements in the right hemibody with decerebrate posturing. Now, Shivering and only responds to pain by opening her eyes. Initial EEG: showed some slowing, not consistent with clinical picture. - Repeat CT head from today showed worsening cerebral edema overall prognosis: poor for meaningful neurological recovery. Continue with the current management Repeat EEG showed worsening findings with the diffuse slowing consistent with diffuse cerebral dysfunction as seen in severe hypoxic brain injury. Patient's family was updated regarding the current condition and prognosis and the sister is still waiting to make the decision regarding CODE STATUS.
[2024-11-14] VITALS (68 sets, daily range): BP systolic 112–168; BP diastolic 76–127; PULSE 91–113; RESP 0–41; TEMP 36.3–39.1; O2SAT 89–99; BMI 34.2; BMI 33.5
[2024-11-14 01:00] LABS: Sodium 159 mMol/L (136-145)
[2024-11-14] MEDS: ALBUTEROL/IPRATROPIUM (Duoneb) RT SOL 3 ML NEBU INH ×6 (02:51→22:40)
[2024-11-14] MEDS: PIPER/TAZO INJ 3.375 GM in SODIUM CHLORIDE 0.9% (Popper) 50 ML IV ×3 (06:10→21:52)
[2024-11-14 06:26] LABS: Basophils % (Auto) 0 % (0-2.5); Eosinophils # (Auto) 0.1 Thou/mm3 (0.0-0.5); Eosinophils % (Auto) 0 % (0-10); Hematocrit 27.1 % (36.0-46.0); Hemoglobin 8.9 g/dL (12.0-16.0); Immature Granulocytes % (Auto) 1 % (0-0); Immature Granulocytes Auto 0.15 Thou/mm3 (0.00-0.00); Lymphocytes # (Auto) 1.4 Thou/mm3 (1.0-4.8); Lymphocytes % (Auto) 8 % (10-50); Mean Corpuscular HGB Conc 32.8 g/dl (31.0-37.0); Mean Corpuscular Hemoglobin 30.5 pg (25.0-35.0); Mean Corpuscular Volume 93 fL (80-100); Monocytes # (Auto) 0.6 Thou/mm3 (0.0-0.8); Monocytes % (Auto) 3 % (0-12); Neutrophils # (Auto) 16.4 Thou/mm3 (1.8-7.7); Neutrophils % (Auto) 88 % (37-80); Nucleated Red Blood Cell % 0 /100 WBC (0); Platelet Count 248 Thou/mm3 (140-440); RDW Standard Deviation 48.4 fL (36.4-46.3); Red Blood Count 2.92 Miln/mm3 (4.00-5.20); White Blood Count 18.8 Thou/mm3 (3.6-11.0)
[2024-11-14 07:00] LABS: Alanine Aminotransferase 35 U/L (10-49); Albumin, Serum 3.1 gm/dL (3.5-5.0); Albumin/Globulin Ratio 1.1 (1.2-2.2); Alkaline Phosphatase 99 U/L (46-116); Anion Gap 8 (7-16); Aspartate Amino Transferase 47 U/L (0-34); BUN/Creatinine Ratio 23 Ratio (12-20); Bilirubin,Total 0.6 mg/dL (0.3-1.2); Blood Urea Nitrogen 30 mg/dL (9-23); Calcium 8.4 mg/dL (8.3-10.6); Calcium (Corrected) 9.1 mg/dL (8.5-10.1); Carbon Dioxide 29.1 mMol/L (20.0-31.0); Chloride 119 mMol/L (98-107); Creatinine (Component) 1.3 mg/dL (0.6-1.3); Estimated Creatinine Clearance 66.5 mL/min (>60); Globulin 2.7 gm/dL (2.3-3.5); Glucose 122 mg/dL (74-106); Osmolality,Calculated 316 (275-295); Sodium 156 mMol/L (136-145); Total Protein 5.8 gm/dL (5.7-8.2); eGFR 57 See Note
[2024-11-14 07:11] LABS: Potassium 2.7 mMol/L (3.4-5.1)
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
[2024-11-14] MEDS: POLYETHYLENE GLYCOL 17 GM PACKET NG (08:17)
[2024-11-14] MEDS: POTASSIUM CHLORIDE 10% 20 MEQ/15 ML UDC 40 MEQ GT (08:18)
[2024-11-14] MEDS: HEPARIN SOD INJ 5000 UNIT/ML VIAL SC ×2 (08:18→21:11)
[2024-11-14] MEDS: PANTOPRAZOLE INJ 40 MG VIAL IV (08:18)
[2024-11-14] MEDS: levETIRAcetam INJ 100 MG/ML VIAL 5ML 500 MG IVP ×2 (08:22→21:11)
[2024-11-14] MEDS: POTASSIUM CHLORIDE 10% 20 MEQ/15 ML UDC 40 MEQ NG (10:48)
[2024-11-14 12:55] LABS: Sodium 156 mMol/L (136-145)
--- NOTE | 2024-11-14 12:57 | PC.SS ---
Addendum entered and electronically signed by ALESSANDRO Kaplan 11/14/24 14:48: Casting Carrier to discuss with family alf placement for the patient. If family declines option will discuss comfort care. Original Note: ALESSANDRO informed by ICU room service runner family requesting additional time to discuss transition plan: LTAC placement. Patient trached, not in possession of PEG tube.
--- NOTE | 2024-11-14 12:59 | PC.SS ---
Update: Patient on trach, blow-by. Patient off sedation. NG tube feedings in place. Patient not receiving pressor support. Possible downgrade to tele.
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
--- NOTE | 2024-11-14 21:49 | PD.VPROG1 ---
Telemedicine visit statement This visit was conducted with the use of phone was obtained on 11/14/24. Documentation for date of: 11/14/24 Subjective Subjective Interval history: Patient is in ICU, no changes/events overnight. Continue to remain trached and on ventilatory support Virtual exam Vital Signs Temp Pulse Resp BP Pulse Ox O2 Del Method O2 Flow Rate 98.8 F 111 H 31 H 126/84 92 L Mechanical Ventilation 12 11/14/24 20:00 11/14/24 20:00 11/14/24 20:00 11/14/24 16:00 11/14/24 20:00 11/14/24 20:00 11/14/24 14:01 FiO2 50 11/14/24 20:00 Objective Labs 11/14/24 06:10 11/14/24 12:05 Labs: Laboratory Results - last 24 hr 11/14/24 11/14/24 11/14/24 00:20 06:10 12:05 WBC 18.8 H RBC 2.92 L Hgb 8.9 L Hct 27.1 L MCV 93 MCH 30.5 MCHC 32.8 RDW Std Deviation 48.4 H Plt Count 248 D Neut % (Auto) 88 H Lymph % (Auto) 8 L [place] % (Auto) 3 Eos % (Auto) 0 Baso % (Auto) 0 Neut # (Auto) 16.4 H Lymph # (Auto) 1.4 [place] # (Auto) 0.6 Eos # (Auto) 0.1 Baso # (Auto) 0.0 Immature Gran # (Auto) 0.15 H Absolute Nucleated RBC 0.00 Immature Gran % 1 H Nucleated RBC % 0 Sodium 159 H 156 H 156 H Potassium 2.7 L* D Chloride 119 H Carbon Dioxide 29.1 Anion Gap 8 BUN 30 H Creatinine 1.3 Estim Creat Clear Calc 66.5 eGFR 57 L BUN/Creatinine Ratio 23 H Glucose 122 H Calculated Osmolality 316 H Calcium 8.4 Corrected Calcium 9.1 Total Bilirubin 0.6 AST 47 H ALT 35 Alkaline Phosphatase 99 Total Protein 5.8 Albumin 3.1 L Globulin 2.7 Albumin/Globulin Ratio 1.1 L ABG Interpretation ABG results: 11/06/24 11/06/24 11/06/24 03:55 10:50 12:55 ABG pH 7.32 L 7.33 L ABG pCO2 51 H 49 H ABG pO2 161 H 201 H D ABG HCO3 26 26 ABG O2 Saturation 100 H 100 H ABG Base Excess -1 -1 VBG pH 6.98 L VBG pCO2 81 H VBG pO2 37 VBG Base Excess -14 L 11/06/24 11/07/24 11/10/24 16:35 05:28 19:42 ABG pH 7.40 7.42 7.30 L ABG pCO2 41 41 41 ABG pO2 140 H D 130 H 74 L ABG HCO3 26 27 H 20 ABG O2 Saturation 100 H 100 H 96 ABG Base Excess 1 2 -6 L VBG pH VBG pCO2 VBG pO2 VBG Base Excess Assessment & Plan Assessment Hypoxic brain injury: Encephalopathy Presented with new onset of seizures with focal myoclonus Assessment: CT head on 11/06: 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 Continue with the current management, patient's family will make the decision tomorrow regarding transfer to LTAC or comfort care. Patient got transferred to telemetry. She is in persistent vegetative state Continue with the Keppra, and lorazepam as needed.
[2024-11-14] MEDS: ACETAMINOPHEN SOL 325 MG/10 ML UDC 650 MG GT (22:06)
[2024-11-15] VITALS (17 sets, daily range): BP systolic 106–142; BP diastolic 62–86; PULSE 90–112; RESP 18–34; TEMP 36.3–39; O2SAT 94–99; BMI 33.2
[2024-11-15] MEDS: ALBUTEROL/IPRATROPIUM (Duoneb) RT SOL 3 ML NEBU INH ×6 (03:48→23:22)
[2024-11-15] MEDS: ACETAMINOPHEN SOL 325 MG/10 ML UDC 650 MG GT ×2 (05:11→12:48)
[2024-11-15] MEDS: PIPER/TAZO INJ 3.375 GM in SODIUM CHLORIDE 0.9% (Popper) 50 ML IV ×3 (05:12→21:53)
[2024-11-15 05:25] LABS: Basophils % (Auto) 0 % (0-2.5); Eosinophils # (Auto) 0.2 Thou/mm3 (0.0-0.5); Eosinophils % (Auto) 1 % (0-10); Hematocrit 26.7 % (36.0-46.0); Hemoglobin 8.9 g/dL (12.0-16.0); Immature Granulocytes % (Auto) 1 % (0-0); Immature Granulocytes Auto 0.17 Thou/mm3 (0.00-0.00); Lymphocytes # (Auto) 1.8 Thou/mm3 (1.0-4.8); Lymphocytes % (Auto) 10 % (10-50); Mean Corpuscular HGB Conc 33.3 g/dl (31.0-37.0); Mean Corpuscular Hemoglobin 30.8 pg (25.0-35.0); Mean Corpuscular Volume 92 fL (80-100); Monocytes # (Auto) 0.6 Thou/mm3 (0.0-0.8); Monocytes % (Auto) 3 % (0-12); Neutrophils # (Auto) 14.6 Thou/mm3 (1.8-7.7); Neutrophils % (Auto) 84 % (37-80); Nucleated Red Blood Cell % 0 /100 WBC (0); Platelet Count 267 Thou/mm3 (140-440); RDW Standard Deviation 47.8 fL (36.4-46.3); Red Blood Count 2.89 Miln/mm3 (4.00-5.20); White Blood Count 17.4 Thou/mm3 (3.6-11.0)
[2024-11-15 05:48] LABS: Alanine Aminotransferase 36 U/L (10-49); Alkaline Phosphatase 96 U/L (46-116); Anion Gap 10 (7-16); Aspartate Amino Transferase 57 U/L (0-34); BUN/Creatinine Ratio 25 Ratio (12-20); Bilirubin,Total 0.6 mg/dL (0.3-1.2); Blood Urea Nitrogen 28 mg/dL (9-23); Calcium 8.1 mg/dL (8.3-10.6); Calcium (Corrected) 8.9 mg/dL (8.5-10.1); Carbon Dioxide 27.2 mMol/L (20.0-31.0); Chloride 117 mMol/L (98-107); Creatinine (Component) 1.1 mg/dL (0.6-1.3); Estimated Creatinine Clearance 76.1 mL/min (>60); Globulin 2.9 gm/dL (2.3-3.5); Glucose 111 mg/dL (74-106); Magnesium 1.6 mg/dL (1.6-2.6); Osmolality,Calculated 311 (275-295); Phosphorous 2.3 mg/dL (2.4-5.1); Potassium 2.9 mMol/L (3.4-5.1); Sodium 154 mMol/L (136-145); Total Protein 5.9 gm/dL (5.7-8.2); eGFR > 60 See Note
[2024-11-15] MEDS: HEPARIN SOD INJ 5000 UNIT/ML VIAL SC ×2 (09:48→20:51)
[2024-11-15] MEDS: levETIRAcetam INJ 100 MG/ML VIAL 5ML 500 MG IVP ×2 (09:48→20:32)
[2024-11-15] MEDS: Magnesium Sulfate 4 GM Ivpb 4 GM/50 ML BAG IV (09:48)
[2024-11-15] MEDS: POTASSIUM CHLORIDE 10% 20 MEQ/15 ML UDC 40 MEQ GT ×2 (09:49→11:13)
[2024-11-15] MEDS: NAPH,KPH MBDB 1 PACKET (1.5 GM) PO (09:50)
[2024-11-15] MEDS: LANSOPRAZOLE 30 MG TAB.RAP.DR GT (09:51)
--- NOTE | 2024-11-15 14:20 | PC.SS ---
SS follow up note; SS contacted patient's sister, Anais Vazquez . Team A requesting to Have a Goals of Care meeting. Patient's sister reported she could meet tomorrow morning at 10AM. SS updated Dr. Cabrera.
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
--- NOTE | 2024-11-15 23:58 | ESPR_ITS ---
Documentation for date of: 11/15/24 Subjective Subjective Interval history: Patient was seen in ICU today, trached and on ventilatory support, intermittent shivering and eyes open on stimulation Exam - Neurology Vital Signs Temp Pulse Resp BP Pulse Ox O2 Del Method O2 Flow Rate 97.4 F 108 H 27 H 124/73 98 Mechanical Ventilation 12 11/15/24 20:00 11/15/24 23:32 11/15/24 23:32 11/15/24 20:00 11/15/24 23:32 11/15/24 20:00 11/15/24 20:00 FiO2 60 11/15/24 23:32 Narrative Exam General: Trached remains on mechanical ventilatory support, off of sedation HEENT: ET tube in tracheostomy site, site C/D/I, NC/AT, mucous membranes moist, bilateral sclera anicteric Cardiovascular: regular rate and rhythm, S1/S2 present, no murmurs appreciated Pulmonary: clear to auscultation bilaterally, no rales/rhonchi/wheezes Abdominal: soft, non-distended, normal bowel sounds present Musculoskeletal: no peripheral edema Skin: warm and dry, intact, no rashes Neuro: comatose, brainstem reflexes intact: positive corneal reflex, cough reflex, oculocephalic reflex, no response to painful stimulation in the extremities any longer Objective Labs 11/16/24 05:22 11/16/24 05:22 Labs: Laboratory Results - last 24 hr 11/15/24 04:24 WBC 17.4 H RBC 2.89 L Hgb 8.9 L Hct 26.7 L MCV 92 MCH 30.8 MCHC 33.3 RDW Std Deviation 47.8 H Plt Count 267 Neut % (Auto) 84 H Lymph % (Auto) 10 [place] % (Auto) 3 Eos % (Auto) 1 Baso % (Auto) 0 Neut # (Auto) 14.6 H Lymph # (Auto) 1.8 [place] # (Auto) 0.6 Eos # (Auto) 0.2 Baso # (Auto) 0.0 Immature Gran # (Auto) 0.17 H Absolute Nucleated RBC 0.00 Immature Gran % 1 H Nucleated RBC % 0 Sodium 154 H Potassium 2.9 L Chloride 117 H Carbon Dioxide 27.2 Anion Gap 10 BUN 28 H Creatinine 1.1 Estim Creat Clear Calc 76.1 eGFR > 60 BUN/Creatinine Ratio 25 H Glucose 111 H Calculated Osmolality 311 H Calcium 8.1 L Corrected Calcium 8.9 Phosphorus 2.3 L Magnesium 1.6 Total Bilirubin 0.6 AST 57 H ALT 36 Alkaline Phosphatase 96 Total Protein 5.9 Albumin 3.0 L Globulin 2.9 Albumin/Globulin Ratio 1.0 L ABG Interpretation ABG results: 11/06/24 11/06/24 11/06/24 03:55 10:50 12:55 ABG pH 7.32 L 7.33 L ABG pCO2 51 H 49 H ABG pO2 161 H 201 H D ABG HCO3 26 26 ABG O2 Saturation 100 H 100 H ABG Base Excess -1 -1 VBG pH 6.98 L VBG pCO2 81 H VBG pO2 37 VBG Base Excess -14 L 11/06/24 11/07/24 11/10/24 16:35 05:28 19:42 ABG pH 7.40 7.42 7.30 L ABG pCO2 41 41 41 ABG pO2 140 H D 130 H 74 L ABG HCO3 26 27 H 20 ABG O2 Saturation 100 H 100 H 96 ABG Base Excess 1 2 -6 L VBG pH VBG pCO2 VBG pO2 VBG Base Excess Assessment & Plan Additional Assessment & Plan Additional Plan: #Seizures: likely 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 Assessment: CT head on 11/06: old infarcts in distribution left MCA with mild ipsilateral ventricular dilatation, this area could the foci of patient's seizure activity tonic -movements in the right hemibody with decerebrate posturing. Initial EEG: showed some slowing, not consistent with clinical picture. - Repeat CT head from today showed worsening cerebral edema overall prognosis: poor for meaningful neurological recovery. No patient is in persistent vegetative state. Continue with the current management Repeat EEG showed worsening findings with the diffuse slowing consistent with diffuse cerebral dysfunction as seen in severe hypoxic brain injury. LTAC placement pending.
[2024-11-16] VITALS (14 sets, daily range): BP systolic 115–139; BP diastolic 67–88; PULSE 77–108; RESP 21–30; TEMP 36.1–37.1; O2SAT 93–100; BMI 33.2
[2024-11-16] MEDS: ALBUTEROL/IPRATROPIUM (Duoneb) RT SOL 3 ML NEBU INH ×6 (02:55→22:45)
[2024-11-16] MEDS: PIPER/TAZO INJ 3.375 GM in SODIUM CHLORIDE 0.9% (Popper) 50 ML IV ×3 (05:33→22:04)
[2024-11-16 05:55] LABS: Basophils % (Auto) 0 % (0-2.5); Eosinophils # (Auto) 0.3 Thou/mm3 (0.0-0.5); Eosinophils % (Auto) 2 % (0-10); Hematocrit 27.7 % (36.0-46.0); Immature Granulocytes % (Auto) 1 % (0-0); Lymphocytes # (Auto) 1.5 Thou/mm3 (1.0-4.8); Lymphocytes % (Auto) 10 % (10-50); Mean Corpuscular HGB Conc 32.5 g/dl (31.0-37.0); Mean Corpuscular Hemoglobin 30.6 pg (25.0-35.0); Mean Corpuscular Volume 94 fL (80-100); Monocytes # (Auto) 0.5 Thou/mm3 (0.0-0.8); Monocytes % (Auto) 3 % (0-12); Neutrophils # (Auto) 12.6 Thou/mm3 (1.8-7.7); Neutrophils % (Auto) 83 % (37-80); Nucleated Red Blood Cell % 0 /100 WBC (0); Platelet Count 215 Thou/mm3 (140-440); RDW Standard Deviation 49.2 fL (36.4-46.3); Red Blood Count 2.94 Miln/mm3 (4.00-5.20); White Blood Count 15.1 Thou/mm3 (3.6-11.0)
[2024-11-16 06:23] LABS: Alanine Aminotransferase 31 U/L (10-49); Albumin, Serum 3.2 gm/dL (3.5-5.0); Albumin/Globulin Ratio 1.2 (1.2-2.2); Alkaline Phosphatase 93 U/L (46-116); Anion Gap 11 (7-16); Aspartate Amino Transferase 54 U/L (0-34); BUN/Creatinine Ratio 29 Ratio (12-20); Bilirubin,Total 0.3 mg/dL (0.3-1.2); Blood Urea Nitrogen 26 mg/dL (9-23); Calcium (Corrected) 8.6 mg/dL (8.5-10.1); Carbon Dioxide 26.5 mMol/L (20.0-31.0); Chloride 114 mMol/L (98-107); Creatinine (Component) 0.9 mg/dL (0.6-1.3); Estimated Creatinine Clearance 92.4 mL/min (>60); Globulin 2.7 gm/dL (2.3-3.5); Glucose 111 mg/dL (74-106); Magnesium 2.1 mg/dL (1.6-2.6); Osmolality,Calculated 305 (275-295); Phosphorous 3.9 mg/dL (2.4-5.1); Potassium 3.6 mMol/L (3.4-5.1); Sodium 151 mMol/L (136-145); Total Protein 5.9 gm/dL (5.7-8.2); eGFR > 60 See Note
[2024-11-16] MEDS: POLYETHYLENE GLYCOL 17 GM PACKET NG ×2 (06:43→08:51)
[2024-11-16] MEDS: NYSTATIN SUSP 5 ML UDC PO ×3 (08:50→21:46)
[2024-11-16] MEDS: levETIRAcetam INJ 100 MG/ML VIAL 5ML 500 MG IVP ×2 (08:50→21:46)
[2024-11-16] MEDS: HEPARIN SOD INJ 5000 UNIT/ML VIAL SC ×2 (08:50→21:46)
[2024-11-16] MEDS: LANSOPRAZOLE 30 MG TAB.RAP.DR GT (08:51)
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
--- NOTE | 2024-11-16 23:26 | PD.VPROG1 ---
Telemedicine visit statement This visit was conducted with the use of phone was obtained on 11/16/24 at 2326. Documentation for date of: 11/16/24 Subjective Subjective Interval history: Patient is in telemetry unit, no changes/events overnight. Continue to remain trached and on ventilatory support Virtual exam Vital Signs Temp Pulse Resp BP Pulse Ox O2 Del Method O2 Flow Rate 97.9 F 91 25 H 119/82 98 Mechanical Ventilation 12 11/16/24 19:59 11/16/24 22:48 11/16/24 22:48 11/16/24 19:59 11/16/24 22:48 11/16/24 19:59 11/16/24 18:14 FiO2 40 11/16/24 22:48 Objective Labs 11/20/24 04:21 11/19/24 05:15 Labs: Laboratory Results - last 24 hr 11/16/24 05:22 WBC 15.1 H RBC 2.94 L Hgb 9.0 L Hct 27.7 L MCV 94 MCH 30.6 MCHC 32.5 RDW Std Deviation 49.2 H Plt Count 215 D Neut % (Auto) 83 H Lymph % (Auto) 10 [place] % (Auto) 3 Eos % (Auto) 2 Baso % (Auto) 0 Neut # (Auto) 12.6 H Lymph # (Auto) 1.5 [place] # (Auto) 0.5 Eos # (Auto) 0.3 Baso # (Auto) 0.0 Immature Gran # (Auto) 0.20 H Absolute Nucleated RBC 0.00 Immature Gran % 1 H Nucleated RBC % 0 Sodium 151 H Potassium 3.6 D Chloride 114 H Carbon Dioxide 26.5 Anion Gap 11 BUN 26 H Creatinine 0.9 Estim Creat Clear Calc 92.4 eGFR > 60 BUN/Creatinine Ratio 29 H Glucose 111 H Calculated Osmolality 305 H Calcium 8.0 L Corrected Calcium 8.6 Phosphorus 3.9 Magnesium 2.1 Total Bilirubin 0.3 AST 54 H ALT 31 Alkaline Phosphatase 93 Total Protein 5.9 Albumin 3.2 L Globulin 2.7 Albumin/Globulin Ratio 1.2 ABG Interpretation ABG results: 11/06/24 11/06/24 11/06/24 03:55 10:50 12:55 ABG pH 7.32 L 7.33 L ABG pCO2 51 H 49 H ABG pO2 161 H 201 H D ABG HCO3 26 26 ABG O2 Saturation 100 H 100 H ABG Base Excess -1 -1 VBG pH 6.98 L VBG pCO2 81 H VBG pO2 37 VBG Base Excess -14 L 11/06/24 11/07/24 11/10/24 16:35 05:28 19:42 ABG pH 7.40 7.42 7.30 L ABG pCO2 41 41 41 ABG pO2 140 H D 130 H 74 L ABG HCO3 26 27 H 20 ABG O2 Saturation 100 H 100 H 96 ABG Base Excess 1 2 -6 L VBG pH VBG pCO2 VBG pO2 VBG Base Excess Assessment & Plan Assessment Hypoxic brain injury: Encephalopathy Presented with new onset of seizures with focal myoclonus Assessment: CT head on 11/06: 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 She is in persistent vegetative state Continue with the current management, pending placement
[2024-11-17] VITALS (13 sets, daily range): BP systolic 108–130; BP diastolic 55–89; PULSE 76–98; RESP 16–30; TEMP 36.3–37; O2SAT 92–100; BMI 33.2
[2024-11-17] MEDS: ALBUTEROL/IPRATROPIUM (Duoneb) RT SOL 3 ML NEBU INH ×6 (03:55→22:56)
[2024-11-17] MEDS: NYSTATIN SUSP 5 ML UDC PO ×3 (05:23→21:14)
[2024-11-17] MEDS: PIPER/TAZO INJ 3.375 GM in SODIUM CHLORIDE 0.9% (Popper) 50 ML IV (05:23)
[2024-11-17 06:42] LABS: Basophils % (Auto) 0 % (0-2.5); Eosinophils # (Auto) 0.2 Thou/mm3 (0.0-0.5); Eosinophils % (Auto) 1 % (0-10); Hematocrit 28.7 % (36.0-46.0); Hemoglobin 9.4 g/dL (12.0-16.0); Immature Granulocytes % (Auto) 1 % (0-0); Lymphocytes # (Auto) 1.4 Thou/mm3 (1.0-4.8); Lymphocytes % (Auto) 9 % (10-50); Mean Corpuscular HGB Conc 32.8 g/dl (31.0-37.0); Mean Corpuscular Hemoglobin 30.4 pg (25.0-35.0); Mean Corpuscular Volume 93 fL (80-100); Monocytes # (Auto) 0.5 Thou/mm3 (0.0-0.8); Monocytes % (Auto) 3 % (0-12); Neutrophils # (Auto) 13.4 Thou/mm3 (1.8-7.7); Neutrophils % (Auto) 85 % (37-80); Nucleated Red Blood Cell % 0 /100 WBC (0); Platelet Count 283 Thou/mm3 (140-440); RDW Standard Deviation 47.5 fL (36.4-46.3); Red Blood Count 3.09 Miln/mm3 (4.00-5.20); White Blood Count 15.8 Thou/mm3 (3.6-11.0)
[2024-11-17 07:05] LABS: Alanine Aminotransferase 32 U/L (10-49); Albumin, Serum 3.3 gm/dL (3.5-5.0); Albumin/Globulin Ratio 1.2 (1.2-2.2); Alkaline Phosphatase 111 U/L (46-116); Anion Gap 9 (7-16); Aspartate Amino Transferase 62 U/L (0-34); BUN/Creatinine Ratio 34 Ratio (12-20); Bilirubin,Total 0.4 mg/dL (0.3-1.2); Blood Urea Nitrogen 27 mg/dL (9-23); Calcium 8.1 mg/dL (8.3-10.6); Calcium (Corrected) 8.7 mg/dL (8.5-10.1); Carbon Dioxide 26.2 mMol/L (20.0-31.0); Chloride 113 mMol/L (98-107); Creatinine (Component) 0.8 mg/dL (0.6-1.3); Globulin 2.7 gm/dL (2.3-3.5); Glucose 121 mg/dL (74-106); Magnesium 1.8 mg/dL (1.6-2.6); Osmolality,Calculated 300 (275-295); Phosphorous 3.5 mg/dL (2.4-5.1); Potassium 3.6 mMol/L (3.4-5.1); Sodium 148 mMol/L (136-145); eGFR > 60 See Note
[2024-11-17] MEDS: levETIRAcetam INJ 100 MG/ML VIAL 5ML 500 MG IVP ×2 (08:02→21:14)
[2024-11-17] MEDS: LANSOPRAZOLE 30 MG TAB.RAP.DR GT (08:02)
[2024-11-17] MEDS: HEPARIN SOD INJ 5000 UNIT/ML VIAL SC ×2 (08:02→21:14)
[2024-11-17] MEDS: POLYETHYLENE GLYCOL 17 GM PACKET NG ×2 (08:03→21:13)
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
--- NOTE | 2024-11-17 13:06 | PC.SS ---
SS spoke with Anais, sister/POC, confirmed C meeting scheudled for 3pm; SIMON confirmed Anais is POC SS spoke with medical team, confirmed POC is listed as sister Manzo of pt
--- NOTE | 2024-11-17 15:09 | PC.SS ---
SS was present for [facility] meeting with medical team; family decision maker, Anais Vazquez, would like to have PEG tube placed; family would like to have pt changed to DNR, decision to consider LTAC if pt is unable to wean to lower O2
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
--- NOTE | 2024-11-17 18:50 | PC.NURSE ---
Addendum entered by Divya Wang RN 11/17/24 18:52: RN Augusta aware of miscellaneous nurses order for Ancef order for tomorrow before procedure. Original Note: consent for Peg tube obtained over the phone with Dr. Pérez speaking to pt. POC Anais Vazquez as witnessed by Divya PIERCE and Christina PIERCE. Anais agrees and verbalizes not qestions at this time.
[2024-11-18] VITALS (24 sets, daily range): BP systolic 110–154; BP diastolic 70–107; PULSE 78–105; RESP 18–37; TEMP 36.1–36.7; O2SAT 93–100
[2024-11-18] MEDS: ALBUTEROL/IPRATROPIUM (Duoneb) RT SOL 3 ML NEBU INH ×6 (02:58→23:15)
[2024-11-18] MEDS: NYSTATIN SUSP 5 ML UDC PO ×4 (05:22→21:52)
[2024-11-18 06:06] LABS: Basophils % (Auto) 0 % (0-2.5); Eosinophils # (Auto) 0.2 Thou/mm3 (0.0-0.5); Eosinophils % (Auto) 1 % (0-10); Hematocrit 27.8 % (36.0-46.0); Hemoglobin 9.3 g/dL (12.0-16.0); Immature Granulocytes % (Auto) 1 % (0-0); Immature Granulocytes Auto 0.21 Thou/mm3 (0.00-0.00); Lymphocytes # (Auto) 1.7 Thou/mm3 (1.0-4.8); Lymphocytes % (Auto) 9 % (10-50); Mean Corpuscular HGB Conc 33.5 g/dl (31.0-37.0); Mean Corpuscular Hemoglobin 30.9 pg (25.0-35.0); Mean Corpuscular Volume 92 fL (80-100); Monocytes # (Auto) 0.5 Thou/mm3 (0.0-0.8); Monocytes % (Auto) 3 % (0-12); Neutrophils # (Auto) 15.8 Thou/mm3 (1.8-7.7); Neutrophils % (Auto) 85 % (37-80); Nucleated Red Blood Cell % 0 /100 WBC (0); Platelet Count 340 Thou/mm3 (140-440); RDW Standard Deviation 46.4 fL (36.4-46.3); Red Blood Count 3.01 Miln/mm3 (4.00-5.20); White Blood Count 18.5 Thou/mm3 (3.6-11.0)
[2024-11-18 06:50] LABS: Alanine Aminotransferase 55 U/L (10-49); Albumin, Serum 3.4 gm/dL (3.5-5.0); Albumin/Globulin Ratio 1.1 (1.2-2.2); Alkaline Phosphatase 129 U/L (46-116); Anion Gap 11 (7-16); Aspartate Amino Transferase 94 U/L (0-34); BUN/Creatinine Ratio 34 Ratio (12-20); Bilirubin,Total 0.4 mg/dL (0.3-1.2); Blood Urea Nitrogen 24 mg/dL (9-23); Calcium 8.5 mg/dL (8.3-10.6); Carbon Dioxide 23.7 mMol/L (20.0-31.0); Chloride 111 mMol/L (98-107); Creatinine (Component) 0.7 mg/dL (0.6-1.3); Estimated Creatinine Clearance 118.8 mL/min (>60); Globulin 3.1 gm/dL (2.3-3.5); Glucose 99 mg/dL (74-106); Osmolality,Calculated 294 (275-295); Potassium 3.7 mMol/L (3.4-5.1); Sodium 146 mMol/L (136-145); Total Protein 6.5 gm/dL (5.7-8.2); eGFR > 60 See Note
[2024-11-18] MEDS: levETIRAcetam INJ 100 MG/ML VIAL 5ML 500 MG IVP ×2 (08:44→20:13)
--- NOTE | 2024-11-18 12:43 | PC.SS ---
SS submitted LTAC inquiry through [employer] platform. SS contacted Nasim from [employer] and he informed SS he will review and contact SS.
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
--- NOTE | 2024-11-18 15:50 | PC.DIETICIAN ---
Nutrition prescription After PEG tube placement, consider switching to: Jevity 1.2 at 30 ml/hr via PEG tube by pump. Advance 10 ml every 8 hrs to goal rate of 60 ml/hr x 24 hrs. If no IV fluids, water flushes of 25 ml/hr (or per MD).
--- NOTE | 2024-11-18 20:45 | PC.NURSE ---
DR Pérez and endo team here at bedside to prep the patient for peg placement. Pre procedure abcamelia roper.
[2024-11-18] MEDS: ceFAZolin/D5W 2 GM IV 2 GM/100 ML BAG IV (20:47)
[2024-11-19] VITALS (10 sets, daily range): BP systolic 105–132; BP diastolic 79–92; PULSE 88–96; RESP 19–32; TEMP 36–36.6; O2SAT 93–99
[2024-11-19] MEDS: ALBUTEROL/IPRATROPIUM (Duoneb) RT SOL 3 ML NEBU INH ×4 (03:03→18:31)
[2024-11-19 05:53] LABS: Basophils # (Auto) 0.1 Thou/mm3 (0.0-0.2); Basophils % (Auto) 0 % (0-2.5); Eosinophils # (Auto) 0.2 Thou/mm3 (0.0-0.5); Eosinophils % (Auto) 1 % (0-10); Hematocrit 28.3 % (36.0-46.0); Hemoglobin 9.3 g/dL (12.0-16.0); Immature Granulocytes % (Auto) 1 % (0-0); Immature Granulocytes Auto 0.21 Thou/mm3 (0.00-0.00); Lymphocytes # (Auto) 1.6 Thou/mm3 (1.0-4.8); Lymphocytes % (Auto) 9 % (10-50); Mean Corpuscular HGB Conc 32.9 g/dl (31.0-37.0); Mean Corpuscular Hemoglobin 30.1 pg (25.0-35.0); Mean Corpuscular Volume 92 fL (80-100); Monocytes # (Auto) 0.7 Thou/mm3 (0.0-0.8); Monocytes % (Auto) 4 % (0-12); Neutrophils # (Auto) 15.5 Thou/mm3 (1.8-7.7); Neutrophils % (Auto) 85 % (37-80); Nucleated Red Blood Cell % 0 /100 WBC (0); Platelet Count 342 Thou/mm3 (140-440); Red Blood Count 3.09 Miln/mm3 (4.00-5.20); White Blood Count 18.3 Thou/mm3 (3.6-11.0)
[2024-11-19] MEDS: NYSTATIN SUSP 5 ML UDC PO ×4 (06:10→20:26)
[2024-11-19 06:46] LABS: Alanine Aminotransferase 52 U/L (10-49); Albumin, Serum 3.5 gm/dL (3.5-5.0); Albumin/Globulin Ratio 1.1 (1.2-2.2); Alkaline Phosphatase 152 U/L (46-116); Anion Gap 8 (7-16); Aspartate Amino Transferase 90 U/L (0-34); BUN/Creatinine Ratio 29 Ratio (12-20); Bilirubin,Total 0.4 mg/dL (0.3-1.2); Blood Urea Nitrogen 20 mg/dL (9-23); Calcium 8.3 mg/dL (8.3-10.6); Calcium (Corrected) 8.7 mg/dL (8.5-10.1); Carbon Dioxide 23.6 mMol/L (20.0-31.0); Chloride 110 mMol/L (98-107); Creatinine (Component) 0.7 mg/dL (0.6-1.3); Estimated Creatinine Clearance 109.3 mL/min (>60); Globulin 3.2 gm/dL (2.3-3.5); Glucose 91 mg/dL (74-106); Osmolality,Calculated 285 (275-295); Phosphorous 3.4 mg/dL (2.4-5.1); Potassium 3.9 mMol/L (3.4-5.1); Sodium 142 mMol/L (136-145); Total Protein 6.7 gm/dL (5.7-8.2); eGFR > 60 See Note
[2024-11-19] MEDS: levETIRAcetam INJ 100 MG/ML VIAL 5ML 500 MG IVP ×2 (08:15→20:26)
[2024-11-19] MEDS: POLYETHYLENE GLYCOL 17 GM PACKET NG (08:15)
[2024-11-19] MEDS: LANSOPRAZOLE 30 MG TAB.RAP.DR GT (08:16)
[2024-11-19] MEDS: HEPARIN SOD INJ 5000 UNIT/ML VIAL SC ×2 (08:16→20:27)
--- NOTE | 2024-11-19 08:45 | PC.SS ---
Patient remains on mechanical ventilator. [employer] confirmed with bedside nurse that patient's PEG tube feedings started this morning.
--- NOTE | 2024-11-19 09:46 | PC.SS ---
Addendum entered by Ngoc Cantu 11/19/24 14:51: SS spoke to Dr. Tamez who states [facility] transport is appropriate, does not require an RN rider, and pt is DNR/DNI. Addendum entered by Ngoc Cantu 11/19/24 12:13: SS met with Jaclyn Flowers (patient's friend, phone# [phone]) at bedside who states she will contact patient's sister (SS provided her with SS phone#). Jaclyn also provided patient's ex mother in law, Tori Briseno's phone# [phone]. Addendum entered by Ngoc Cantu 11/19/24 11:27: SS received call from Farzad at [facility] who states they can accept pt and will be starting insurance authorization. has faxed PASRR assessment to Farzad. has attempted to contact patient's sister, Anais Vazquez 2X but was unsuccessful. SS was able to leave voicemail with contact information. has also contacted Priscila Ceja and provided her with SS contact phone#. Per Priscila, she will inform Anais through text. SS has contacted Sandra from [facility], ext [phone] and explained pt will require an [facility] rider for transportation to [facility] in [place] possibly today or tomorrow. 1st number to call for RT rider is lead ext [phone] or 2nd [phone] manager it security. SS has confirmed with Sandra, RT pt is on ventilator. Original Note: SS sent updated inquiry to Farzad at [facility]. SS spoke to Farzad who is aware pt was started on feedings today. Per Farzad, he will review inquiry and follow up with SS.
--- NOTE | 2024-11-19 10:40 | PC.SS ---
PASSR completed. Patient meets Level I criteria. No PASSR follow up required.
--- NOTE | 2024-11-19 12:50 | PC.NURSE ---
discharge order to go to ltac, awaiting for bed
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
--- NOTE | 2024-11-19 22:18 | PD.IMPROG ---
Documentation for date of: 11/19/24 Subjective Subjective Interval history: Patient evaluated PEG site looks good Exam Vital Signs Temp Pulse Resp BP Pulse Ox O2 Del Method O2 Flow Rate 96.8 F 90 21 H 132/85 H 99 Blow-by 12 11/19/24 16:00 11/19/24 18:35 11/19/24 18:35 11/19/24 16:00 11/19/24 18:35 11/19/24 16:00 11/19/24 16:00 FiO2 45 11/19/24 20:00 Objective Labs 11/19/24 05:15 11/19/24 05:15 Labs: Laboratory Results - last 24 hr 11/19/24 05:15 WBC 18.3 H RBC 3.09 L Hgb 9.3 L Hct 28.3 L MCV 92 MCH 30.1 MCHC 32.9 RDW Std Deviation 45.0 Plt Count 342 Neut % (Auto) 85 H Lymph % (Auto) 9 L [place] % (Auto) 4 Eos % (Auto) 1 Baso % (Auto) 0 Neut # (Auto) 15.5 H Lymph # (Auto) 1.6 [place] # (Auto) 0.7 Eos # (Auto) 0.2 Baso # (Auto) 0.1 Immature Gran # (Auto) 0.21 H Absolute Nucleated RBC 0.00 Immature Gran % 1 H Nucleated RBC % 0 Sodium 142 Potassium 3.9 Chloride 110 H Carbon Dioxide 23.6 Anion Gap 8 BUN 20 Creatinine 0.7 Estim Creat Clear Calc 109.3 eGFR > 60 BUN/Creatinine Ratio 29 H Glucose 91 Calculated Osmolality 285 Calcium 8.3 Corrected Calcium 8.7 Phosphorus 3.4 Magnesium 2.0 Total Bilirubin 0.4 AST 90 H ALT 52 H Alkaline Phosphatase 152 H D Total Protein 6.7 Albumin 3.5 Globulin 3.2 Albumin/Globulin Ratio 1.1 L Impressions Impression: Failure to thrive Status post PEG placement Continue current management ABG Interpretation ABG results: 11/06/24 11/06/24 11/06/24 03:55 10:50 12:55 ABG pH 7.32 L 7.33 L ABG pCO2 51 H 49 H ABG pO2 161 H 201 H D ABG HCO3 26 26 ABG O2 Saturation 100 H 100 H ABG Base Excess -1 -1 VBG pH 6.98 L VBG pCO2 81 H VBG pO2 37 VBG Base Excess -14 L 11/06/24 11/07/24 11/10/24 16:35 05:28 19:42 ABG pH 7.40 7.42 7.30 L ABG pCO2 41 41 41 ABG pO2 140 H D 130 H 74 L ABG HCO3 26 27 H 20 ABG O2 Saturation 100 H 100 H 96 ABG Base Excess 1 2 -6 L VBG pH VBG pCO2 VBG pO2 VBG Base Excess Assessment & Plan A&P Narrative # Anoxic brain injury consent will be obtained from the family and the sister For PEG tube insertion via fiberoptic esophagogastroduodenoscopy under intravenous moderate sedation tentatively scheduled for tomorrow Ancef 1 g IV piggyback on-call to endoscopy N.p.o. midnight annette Thank you very much for the opportunity to participate in the care of this patient Time Spent With Patient Time: Total time spent is greater than 50% in coordination of care (as documented) at patient's floor/unit and/or counseling patient:
--- NOTE | 2024-11-19 23:20 | ESPR_ITS ---
Documentation for date of: 11/19/24 Subjective Subjective Interval history: Patient was seen in telemetry today, trached and on ventilatory support, no changes overnight other than got the PEG tube placement recently. Exam - Neurology Vital Signs Temp Pulse Resp BP Pulse Ox O2 Del Method O2 Flow Rate 97.9 F 96 19 105/83 96 Mechanical Ventilation 12 11/19/24 20:00 11/19/24 20:00 11/19/24 20:00 11/19/24 20:00 11/19/24 20:00 11/19/24 20:00 11/19/24 16:00 FiO2 45 11/19/24 20:00 Narrative Exam General: Trached remains on mechanical ventilatory support, off of sedation HEENT: ET tube in tracheostomy site, site C/D/I, NC/AT, mucous membranes moist, bilateral sclera anicteric Cardiovascular: regular rate and rhythm, S1/S2 present, no murmurs appreciated Pulmonary: clear to auscultation bilaterally, no rales/rhonchi/wheezes Abdominal: soft, non-distended, normal bowel sounds present Musculoskeletal: no peripheral edema Skin: warm and dry, intact, no rashes Neuro: comatose, brainstem reflexes intact: positive corneal reflex, cough reflex, oculocephalic reflex, no response to painful stimulation in the extremities any longer Objective Labs 11/20/24 04:21 11/19/24 05:15 Labs: Laboratory Results - last 24 hr 11/19/24 05:15 WBC 18.3 H RBC 3.09 L Hgb 9.3 L Hct 28.3 L MCV 92 MCH 30.1 MCHC 32.9 RDW Std Deviation 45.0 Plt Count 342 Neut % (Auto) 85 H Lymph % (Auto) 9 L [place] % (Auto) 4 Eos % (Auto) 1 Baso % (Auto) 0 Neut # (Auto) 15.5 H Lymph # (Auto) 1.6 [place] # (Auto) 0.7 Eos # (Auto) 0.2 Baso # (Auto) 0.1 Immature Gran # (Auto) 0.21 H Absolute Nucleated RBC 0.00 Immature Gran % 1 H Nucleated RBC % 0 Sodium 142 Potassium 3.9 Chloride 110 H Carbon Dioxide 23.6 Anion Gap 8 BUN 20 Creatinine 0.7 Estim Creat Clear Calc 109.3 eGFR > 60 BUN/Creatinine Ratio 29 H Glucose 91 Calculated Osmolality 285 Calcium 8.3 Corrected Calcium 8.7 Phosphorus 3.4 Magnesium 2.0 Total Bilirubin 0.4 AST 90 H ALT 52 H Alkaline Phosphatase 152 H D Total Protein 6.7 Albumin 3.5 Globulin 3.2 Albumin/Globulin Ratio 1.1 L ABG Interpretation ABG results: 11/06/24 11/06/24 11/06/24 03:55 10:50 12:55 ABG pH 7.32 L 7.33 L ABG pCO2 51 H 49 H ABG pO2 161 H 201 H D ABG HCO3 26 26 ABG O2 Saturation 100 H 100 H ABG Base Excess -1 -1 VBG pH 6.98 L VBG pCO2 81 H VBG pO2 37 VBG Base Excess -14 L 11/06/24 11/07/24 11/10/24 16:35 05:28 19:42 ABG pH 7.40 7.42 7.30 L ABG pCO2 41 41 41 ABG pO2 140 H D 130 H 74 L ABG HCO3 26 27 H 20 ABG O2 Saturation 100 H 100 H 96 ABG Base Excess 1 2 -6 L VBG pH VBG pCO2 VBG pO2 VBG Base Excess Assessment & Plan Additional Assessment & Plan Additional Plan: #Seizures: likely from old infarct/hypoxic injury #R sided myoclonus #Hx of LMCA stroke Now clinically worse . Assessment: CT head on 11/06: old infarcts in distribution left MCA with mild ipsilateral ventricular dilatation, this area could the foci of patient's seizure activity tonic -movements in the right hemibody with decerebrate posturing. Initial EEG: showed some slowing, not consistent with clinical picture. - Repeat CT head from today showed worsening cerebral edema overall prognosis: poor for meaningful neurological recovery. Now patient is in persistent vegetative state. Continue with the current management Repeat EEG showed worsening findings with the diffuse slowing consistent with diffuse cerebral dysfunction as seen in severe hypoxic brain injury. LTAC placement pending.
[2024-11-20] VITALS (14 sets, daily range): BP systolic 109–127; BP diastolic 56–85; PULSE 82–97; RESP 18–28; TEMP 36.2–37.8; O2SAT 95–99; BMI 28.2
[2024-11-20] MEDS: ALBUTEROL/IPRATROPIUM (Duoneb) RT SOL 3 ML NEBU INH ×4 (00:32→18:53)
[2024-11-20 05:12] LABS: Basophils % (Auto) 0 % (0-2.5); Eosinophils # (Auto) 0.2 Thou/mm3 (0.0-0.5); Eosinophils % (Auto) 2 % (0-10); Hematocrit 29.6 % (36.0-46.0); Hemoglobin 9.5 g/dL (12.0-16.0); Immature Granulocytes % (Auto) 1 % (0-0); Immature Granulocytes Auto 0.15 Thou/mm3 (0.00-0.00); Lymphocytes # (Auto) 1.6 Thou/mm3 (1.0-4.8); Lymphocytes % (Auto) 12 % (10-50); Mean Corpuscular HGB Conc 32.1 g/dl (31.0-37.0); Mean Corpuscular Hemoglobin 30.1 pg (25.0-35.0); Mean Corpuscular Volume 94 fL (80-100); Monocytes # (Auto) 0.7 Thou/mm3 (0.0-0.8); Monocytes % (Auto) 5 % (0-12); Neutrophils # (Auto) 10.4 Thou/mm3 (1.8-7.7); Neutrophils % (Auto) 80 % (37-80); Nucleated Red Blood Cell % 0 /100 WBC (0); Platelet Count 329 Thou/mm3 (140-440); RDW Standard Deviation 45.9 fL (36.4-46.3); Red Blood Count 3.16 Miln/mm3 (4.00-5.20); White Blood Count 13.1 Thou/mm3 (3.6-11.0)
[2024-11-20] MEDS: NYSTATIN SUSP 5 ML UDC PO ×4 (06:30→20:45)
[2024-11-20 06:43] LABS: Alanine Aminotransferase 49 U/L (10-49); Albumin, Serum 3.4 gm/dL (3.5-5.0); Alkaline Phosphatase 174 U/L (46-116); Anion Gap 10 (7-16); Aspartate Amino Transferase 79 U/L (0-34); BUN/Creatinine Ratio 30 Ratio (12-20); Bilirubin,Total 0.3 mg/dL (0.3-1.2); Blood Urea Nitrogen 21 mg/dL (9-23); Calcium 8.1 mg/dL (8.3-10.6); Calcium (Corrected) 8.6 mg/dL (8.5-10.1); Carbon Dioxide 23.6 mMol/L (20.0-31.0); Chloride 107 mMol/L (98-107); Creatinine (Component) 0.7 mg/dL (0.6-1.3); Estimated Creatinine Clearance 109.3 mL/min (>60); Globulin 3.4 gm/dL (2.3-3.5); Glucose 114 mg/dL (74-106); Osmolality,Calculated 285 (275-295); Potassium 3.9 mMol/L (3.4-5.1); Sodium 141 mMol/L (136-145); Total Protein 6.8 gm/dL (5.7-8.2); eGFR > 60 See Note
[2024-11-20] MEDS: LANSOPRAZOLE 30 MG TAB.RAP.DR GT (08:33)
[2024-11-20] MEDS: levETIRAcetam INJ 100 MG/ML VIAL 5ML 500 MG IVP ×2 (08:33→20:45)
--- NOTE | 2024-11-20 10:05 | PC.SS ---
Follow up note: SS spoke to Farzad at [facility] insurance authorization is still pending. Pt will require an RT rider at d/c. ADYDAY has communicated with Farzad when insurance authorization is obtained transportation will be arranged the next day with RT rider. Sandra from RT is aware.
--- NOTE | 2024-11-20 11:34 | PC.SS ---
Addendum entered by Ngoc Cantu 11/20/24 16:22: SS spoke to Farzad from [facility] who states he was received SS message and forward the insurance information over to the hospital to follow up with initiating insurance authorization. Original Note: SS attempted to contact Ca (local physician representative) phone# [phone] but was unsuccessful. DAYDAY called Roz at [phone] from patient's health insurance and explained [facility] has accepted. Roz explained [facility] must initiate the insurance authorization and submit request to them. SS has confirmed their fax# is: [phone]. DAYDAY has left voicemail for Farzad at [facility] with patient's health insurance contact information (Roz's phone# and fax#).
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
--- NOTE | 2024-11-20 20:08 | ESPR_ITS ---
Documentation for date of: 11/20/24 Subjective Subjective Interval history: Patient was seen in telemetry today, trached and on ventilatory support, no changes overnight other than an episode of vomiting with the positional change. Tube feeding was few hours then got restarted recently and is tolerating it well so far Exam - Neurology Vital Signs Temp Pulse Resp BP Pulse Ox O2 Del Method O2 Flow Rate 97.7 F 88 18 127/56 L 99 Mechanical Ventilation 12 11/20/24 16:00 11/20/24 18:53 11/20/24 18:53 11/20/24 16:00 11/20/24 18:53 11/20/24 16:00 11/20/24 04:00 FiO2 40 11/20/24 18:53 Narrative Exam General: Trached remains on mechanical ventilatory support, off of sedation HEENT: ET tube in tracheostomy site, site C/D/I, NC/AT, mucous membranes moist, bilateral sclera anicteric Cardiovascular: regular rate and rhythm, S1/S2 present, no murmurs appreciated Pulmonary: clear to auscultation bilaterally, no rales/rhonchi/wheezes Abdominal: soft, non-distended, normal bowel sounds present Musculoskeletal: no peripheral edema Skin: warm and dry, intact, no rashes Neuro: comatose, brainstem reflexes intact: positive corneal reflex, cough reflex, oculocephalic reflex, no response to painful stimulation in the extremities any longer Objective Labs 11/21/24 04:43 11/21/24 04:43 Labs: Laboratory Results - last 24 hr 11/20/24 04:21 WBC 13.1 H D RBC 3.16 L Hgb 9.5 L Hct 29.6 L MCV 94 MCH 30.1 MCHC 32.1 RDW Std Deviation 45.9 Plt Count 329 Neut % (Auto) 80 Lymph % (Auto) 12 [place] % (Auto) 5 Eos % (Auto) 2 Baso % (Auto) 0 Neut # (Auto) 10.4 H Lymph # (Auto) 1.6 [place] # (Auto) 0.7 Eos # (Auto) 0.2 Baso # (Auto) 0.0 Immature Gran # (Auto) 0.15 H Absolute Nucleated RBC 0.00 Immature Gran % 1 H Nucleated RBC % 0 Sodium 141 Potassium 3.9 Chloride 107 Carbon Dioxide 23.6 Anion Gap 10 BUN 21 Creatinine 0.7 Estim Creat Clear Calc 109.3 eGFR > 60 BUN/Creatinine Ratio 30 H Glucose 114 H Calculated Osmolality 285 Calcium 8.1 L Corrected Calcium 8.6 Phosphorus 3.0 Magnesium 2.0 Total Bilirubin 0.3 AST 79 H ALT 49 Alkaline Phosphatase 174 H D Total Protein 6.8 Albumin 3.4 L Globulin 3.4 Albumin/Globulin Ratio 1.0 L ABG Interpretation ABG results: 11/06/24 11/06/24 11/06/24 03:55 10:50 12:55 ABG pH 7.32 L 7.33 L ABG pCO2 51 H 49 H ABG pO2 161 H 201 H D ABG HCO3 26 26 ABG O2 Saturation 100 H 100 H ABG Base Excess -1 -1 VBG pH 6.98 L VBG pCO2 81 H VBG pO2 37 VBG Base Excess -14 L 11/06/24 11/07/24 11/10/24 16:35 05:28 19:42 ABG pH 7.40 7.42 7.30 L ABG pCO2 41 41 41 ABG pO2 140 H D 130 H 74 L ABG HCO3 26 27 H 20 ABG O2 Saturation 100 H 100 H 96 ABG Base Excess 1 2 -6 L VBG pH VBG pCO2 VBG pO2 VBG Base Excess Assessment & Plan Additional Assessment & Plan Additional Plan: #Seizures: likely from old infarct/hypoxic injury #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 Initial EEG: showed some slowing, not consistent with clinical picture. - Repeat CT head from today showed worsening cerebral edema overall prognosis: poor for meaningful neurological recovery. Now patient is in persistent vegetative state, with tracheostomy and PEG tube in place. Continue with the current management LTAC placement pending.
[2024-11-20] MEDS: POLYETHYLENE GLYCOL 17 GM PACKET NG (20:46)
--- NOTE | 2024-11-20 22:45 | ESPR_ITS ---
Documentation for date of: 11/20/24 Subjective Subjective Interval history: PEG tube looks good PEG site no drainage tolerating PEG feeding Exam Vital Signs Temp Pulse Resp BP Pulse Ox O2 Del Method O2 Flow Rate 97.5 F 85 20 115/79 99 Mechanical Ventilation 12 11/20/24 20:00 11/20/24 20:00 11/20/24 20:00 11/20/24 20:00 11/20/24 20:00 11/20/24 20:00 11/20/24 20:00 FiO2 40 11/20/24 20:00 Objective Labs 11/20/24 04:21 11/20/24 04:21 Labs: Laboratory Results - last 24 hr 11/20/24 04:21 WBC 13.1 H D RBC 3.16 L Hgb 9.5 L Hct 29.6 L MCV 94 MCH 30.1 MCHC 32.1 RDW Std Deviation 45.9 Plt Count 329 Neut % (Auto) 80 Lymph % (Auto) 12 [place] % (Auto) 5 Eos % (Auto) 2 Baso % (Auto) 0 Neut # (Auto) 10.4 H Lymph # (Auto) 1.6 [place] # (Auto) 0.7 Eos # (Auto) 0.2 Baso # (Auto) 0.0 Immature Gran # (Auto) 0.15 H Absolute Nucleated RBC 0.00 Immature Gran % 1 H Nucleated RBC % 0 Sodium 141 Potassium 3.9 Chloride 107 Carbon Dioxide 23.6 Anion Gap 10 BUN 21 Creatinine 0.7 Estim Creat Clear Calc 109.3 eGFR > 60 BUN/Creatinine Ratio 30 H Glucose 114 H Calculated Osmolality 285 Calcium 8.1 L Corrected Calcium 8.6 Phosphorus 3.0 Magnesium 2.0 Total Bilirubin 0.3 AST 79 H ALT 49 Alkaline Phosphatase 174 H D Total Protein 6.8 Albumin 3.4 L Globulin 3.4 Albumin/Globulin Ratio 1.0 L Impressions Impression: Failure to thrive status post PEG placement On enteral hyperalimentation Continue present treatment ABG Interpretation ABG results: 11/06/24 11/06/24 11/06/24 03:55 10:50 12:55 ABG pH 7.32 L 7.33 L ABG pCO2 51 H 49 H ABG pO2 161 H 201 H D ABG HCO3 26 26 ABG O2 Saturation 100 H 100 H ABG Base Excess -1 -1 VBG pH 6.98 L VBG pCO2 81 H VBG pO2 37 VBG Base Excess -14 L 11/06/24 11/07/24 11/10/24 16:35 05:28 19:42 ABG pH 7.40 7.42 7.30 L ABG pCO2 41 41 41 ABG pO2 140 H D 130 H 74 L ABG HCO3 26 27 H 20 ABG O2 Saturation 100 H 100 H 96 ABG Base Excess 1 2 -6 L VBG pH VBG pCO2 VBG pO2 VBG Base Excess Assessment & Plan A&P Narrative # Anoxic brain injury consent will be obtained from the family and the sister For PEG tube insertion via fiberoptic esophagogastroduodenoscopy under intravenous moderate sedation tentatively scheduled for tomorrow Ancef 1 g IV piggyback on-call to endoscopy N.p.o. midnight tonight Thank you very much for the opportunity to participate in the care of this patient Time Spent With Patient Time: Total time spent is greater than 50% in coordination of care (as documented) at patient's floor/unit and/or counseling patient:
[2024-11-21] VITALS (15 sets, daily range): BP systolic 101–138; BP diastolic 60–93; PULSE 91–110; RESP 17–34; TEMP 36.2–36.6; O2SAT 93–99; BMI 28.2
[2024-11-21] MEDS: ALBUTEROL/IPRATROPIUM (Duoneb) RT SOL 3 ML NEBU INH ×4 (00:17→18:20)
[2024-11-21] MEDS: NYSTATIN SUSP 5 ML UDC PO ×4 (05:21→21:41)
[2024-11-21 05:37] LABS: Basophils % (Auto) 0 % (0-2.5); Eosinophils # (Auto) 0.1 Thou/mm3 (0.0-0.5); Eosinophils % (Auto) 1 % (0-10); Hematocrit 30.9 % (36.0-46.0); Hemoglobin 10.1 g/dL (12.0-16.0); Immature Granulocytes % (Auto) 1 % (0-0); Immature Granulocytes Auto 0.13 Thou/mm3 (0.00-0.00); Lymphocytes # (Auto) 1.5 Thou/mm3 (1.0-4.8); Lymphocytes % (Auto) 12 % (10-50); Mean Corpuscular HGB Conc 32.7 g/dl (31.0-37.0); Mean Corpuscular Hemoglobin 30.5 pg (25.0-35.0); Mean Corpuscular Volume 93 fL (80-100); Monocytes # (Auto) 0.7 Thou/mm3 (0.0-0.8); Monocytes % (Auto) 6 % (0-12); Neutrophils # (Auto) 10.5 Thou/mm3 (1.8-7.7); Neutrophils % (Auto) 81 % (37-80); Nucleated Red Blood Cell % 0 /100 WBC (0); Platelet Count 491 Thou/mm3 (140-440); RDW Standard Deviation 45.2 fL (36.4-46.3); Red Blood Count 3.31 Miln/mm3 (4.00-5.20)
[2024-11-21 06:34] LABS: Alanine Aminotransferase 51 U/L (10-49); Albumin, Serum 3.7 gm/dL (3.5-5.0); Alkaline Phosphatase 204 U/L (46-116); Anion Gap 10 (7-16); Aspartate Amino Transferase 82 U/L (0-34); BUN/Creatinine Ratio 35 Ratio (12-20); Bilirubin,Total 0.3 mg/dL (0.3-1.2); Blood Urea Nitrogen 21 mg/dL (9-23); Calcium 8.8 mg/dL (8.3-10.6); Carbon Dioxide 23.3 mMol/L (20.0-31.0); Chloride 108 mMol/L (98-107); Creatinine (Component) 0.6 mg/dL (0.6-1.3); Estimated Creatinine Clearance 127.6 mL/min (>60); Globulin 3.8 gm/dL (2.3-3.5); Glucose 107 mg/dL (74-106); Osmolality,Calculated 284 (275-295); Phosphorous 3.2 mg/dL (2.4-5.1); Potassium 4.5 mMol/L (3.4-5.1); Sodium 141 mMol/L (136-145); Total Protein 7.5 gm/dL (5.7-8.2); eGFR > 60 See Note
[2024-11-21] MEDS: levETIRAcetam INJ 100 MG/ML VIAL 5ML 500 MG IVP ×2 (08:50→21:41)
[2024-11-21] MEDS: LANSOPRAZOLE 30 MG TAB.RAP.DR GT (08:51)
--- NOTE | 2024-11-21 09:40 | PC.SS ---
Addendum entered by Ngoc Cantu 11/21/24 11:08: SS called Nikki at 10:12am but was only able to leave voicemail at the time. later received call from Nikki who states they will position clerk [facility] in [place] insurance authorization. has provided Nikki with Farzad's ([facility]'s liaison) contact information. Addendum entered by Ngoc Cantu 11/21/24 09:55: SS called Nikki at [phone] but was only able to leave voicemail (her voicemail stated she was out of office) with SS contact phone# and [facility] also called a different customer counter representative with same phone# but was only able to leave voicemail. Original Note: has sent updated inquiry including d/c summary to Farzad at [facility]. has included in the inquiry patient's health insurance phone# and fax# for authorization. has also provided information to Farzad.
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
--- NOTE | 2024-11-21 16:03 | PC.SS ---
SS [facility] received insurance authorization for [facility] address: [address] [place] [address] Janessa [place] [facility] [place] [address]. Phone# for report is: [phone] and they will accept pt tomorrow 11-22-24. Pt will require an RT rider due to pt being on Vent. SS called RT Lead ext [phone] but was unsuccessful. SS called Field Technical Support Consultant of RT, Sandra ext [phone] who is aware transportation will be tomorrow possibly around 11am. Sandra is aware of the transportation destination and [employer] transportation being 3-4 hour estimated time. SS has called Ailyn from [facility] to provide her with patient's information and requested transport time of 11am. Shahnaz FRANCOIS is aware and will arrange transportation with [employer] early in the morning on 11-22-24. Bedside nurse, Pema is aware. SARAHY is aware. Physician residents are aware. SS spoke to patient's sister, Fer who is aware of transport time and is agreeable for pt to be transported to [facility].
--- NOTE | 2024-11-21 17:48 | PC.NURSE ---
patient will be discharge tomorrow @ 1100 with respiratory therapy rider to [facility] via [facility] as per [facility] manager social.
--- NOTE | 2024-11-21 21:32 | ESPR_ITS ---
Documentation for date of: 11/21/24 Subjective Subjective Interval history: PEG tube site checked No drainage at the PEG site Awaiting transfer to a rehab facility On respirator via the tracheostomy Exam Vital Signs Temp Pulse Resp BP Pulse Ox O2 Del Method O2 Flow Rate 97.2 F 95 20 138/93 H 97 Mechanical Ventilation 12 11/21/24 20:00 11/21/24 20:00 11/21/24 20:00 11/21/24 20:00 11/21/24 20:00 11/21/24 20:00 11/21/24 16:00 FiO2 40 11/21/24 16:00 Objective Labs 11/21/24 04:43 11/21/24 04:43 Labs: Laboratory Results - last 24 hr 11/21/24 04:43 WBC 13.0 H RBC 3.31 L Hgb 10.1 L Hct 30.9 L MCV 93 MCH 30.5 MCHC 32.7 RDW Std Deviation 45.2 Plt Count 491 H D Neut % (Auto) 81 H Lymph % (Auto) 12 Crowley % (Auto) 6 Eos % (Auto) 1 Baso % (Auto) 0 Neut # (Auto) 10.5 H Lymph # (Auto) 1.5 Crowley # (Auto) 0.7 Eos # (Auto) 0.1 Baso # (Auto) 0.0 Immature Gran # (Auto) 0.13 H Absolute Nucleated RBC 0.00 Immature Gran % 1 H Nucleated RBC % 0 Sodium 141 Potassium 4.5 D Chloride 108 H Carbon Dioxide 23.3 Anion Gap 10 BUN 21 Creatinine 0.6 Estim Creat Clear Calc 127.6 eGFR > 60 BUN/Creatinine Ratio 35 H Glucose 107 H Calculated Osmolality 284 Calcium 8.8 Corrected Calcium 9.0 Phosphorus 3.2 Magnesium 2.0 Total Bilirubin 0.3 AST 82 H ALT 51 H Alkaline Phosphatase 204 H D Total Protein 7.5 Albumin 3.7 Globulin 3.8 H Albumin/Globulin Ratio 1.0 L Impressions Impression: Failure to thrive PEG placement for enteral hyperalimentation Continue enteral hyperalimentation ABG Interpretation ABG results: 11/06/24 11/06/24 11/06/24 03:55 10:50 12:55 ABG pH 7.32 L 7.33 L ABG pCO2 51 H 49 H ABG pO2 161 H 201 H D ABG HCO3 26 26 ABG O2 Saturation 100 H 100 H ABG Base Excess -1 -1 VBG pH 6.98 L VBG pCO2 81 H VBG pO2 37 VBG Base Excess -14 L 11/06/24 11/07/24 11/10/24 16:35 05:28 19:42 ABG pH 7.40 7.42 7.30 L ABG pCO2 41 41 41 ABG pO2 140 H D 130 H 74 L ABG HCO3 26 27 H 20 ABG O2 Saturation 100 H 100 H 96 ABG Base Excess 1 2 -6 L VBG pH VBG pCO2 VBG pO2 VBG Base Excess Assessment & Plan A&P Narrative # Anoxic brain injury consent will be obtained from the family and the sister For PEG tube insertion via fiberoptic esophagogastroduodenoscopy under intravenous moderate sedation tentatively scheduled for tomorrow Ancef 1 g IV piggyback on-call to endoscopy N.p.o. midnight tonight Thank you very much for the opportunity to participate in the care of this patient Time Spent With Patient Time: Total time spent is greater than 50% in coordination of care (as documented) at patient's floor/unit and/or counseling patient:
[2024-11-21] MEDS: POLYETHYLENE GLYCOL 17 GM PACKET NG (21:41)
--- NOTE | 2024-11-21 23:49 | PD.VPROG1 ---
Telemedicine visit statement This visit was conducted with the use of virtual was obtained on 11/21/24. Documentation for date of: 11/21/24 Subjective Subjective Interval history: Patient is in telemetry unit, no changes/events overnight. Continue to remain trached and on ventilatory support Virtual exam Vital Signs Temp Pulse Resp BP Pulse Ox O2 Del Method O2 Flow Rate 97.2 F 95 20 138/93 H 97 Mechanical Ventilation 12 11/21/24 20:00 11/21/24 20:00 11/21/24 20:00 11/21/24 20:00 11/21/24 20:00 11/21/24 20:00 11/21/24 16:00 FiO2 40 11/21/24 20:00 Objective Labs 11/21/24 04:43 11/21/24 04:43 Labs: Laboratory Results - last 24 hr 11/21/24 04:43 WBC 13.0 H RBC 3.31 L Hgb 10.1 L Hct 30.9 L MCV 93 MCH 30.5 MCHC 32.7 RDW Std Deviation 45.2 Plt Count 491 H D Neut % (Auto) 81 H Lymph % (Auto) 12 Cache % (Auto) 6 Eos % (Auto) 1 Baso % (Auto) 0 Neut # (Auto) 10.5 H Lymph # (Auto) 1.5 Cache # (Auto) 0.7 Eos # (Auto) 0.1 Baso # (Auto) 0.0 Immature Gran # (Auto) 0.13 H Absolute Nucleated RBC 0.00 Immature Gran % 1 H Nucleated RBC % 0 Sodium 141 Potassium 4.5 D Chloride 108 H Carbon Dioxide 23.3 Anion Gap 10 BUN 21 Creatinine 0.6 Estim Creat Clear Calc 127.6 eGFR > 60 BUN/Creatinine Ratio 35 H Glucose 107 H Calculated Osmolality 284 Calcium 8.8 Corrected Calcium 9.0 Phosphorus 3.2 Magnesium 2.0 Total Bilirubin 0.3 AST 82 H ALT 51 H Alkaline Phosphatase 204 H D Total Protein 7.5 Albumin 3.7 Globulin 3.8 H Albumin/Globulin Ratio 1.0 L ABG Interpretation ABG results: 11/06/24 11/06/24 11/06/24 03:55 10:50 12:55 ABG pH 7.32 L 7.33 L ABG pCO2 51 H 49 H ABG pO2 161 H 201 H D ABG HCO3 26 26 ABG O2 Saturation 100 H 100 H ABG Base Excess -1 -1 VBG pH 6.98 L VBG pCO2 81 H VBG pO2 37 VBG Base Excess -14 L 11/06/24 11/07/24 11/10/24 16:35 05:28 19:42 ABG pH 7.40 7.42 7.30 L ABG pCO2 41 41 41 ABG pO2 140 H D 130 H 74 L ABG HCO3 26 27 H 20 ABG O2 Saturation 100 H 100 H 96 ABG Base Excess 1 2 -6 L VBG pH VBG pCO2 VBG pO2 VBG Base Excess Assessment & Plan Assessment Hypoxic brain injury: Encephalopathy Presented with new onset of seizures with focal myoclonus Assessment: CT head on 11/06: 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 Now, trached and has a PEG tube in place, tolerating tube feeding well She is in persistent vegetative state Continue with the current management, pending placement
[2024-11-22] VITALS (14 sets, daily range): BP systolic 113–154; BP diastolic 78–100; PULSE 83–117; RESP 14–31; TEMP 36.2–37.1; O2SAT 93–99; BMI 30.7
[2024-11-22] MEDS: ALBUTEROL/IPRATROPIUM (Duoneb) RT SOL 3 ML NEBU INH ×4 (01:25→19:00)
[2024-11-22] MEDS: NYSTATIN SUSP 5 ML UDC PO ×4 (05:22→20:31)
[2024-11-22 06:29] LABS: Basophils % (Auto) 0 % (0-2.5); Eosinophils # (Auto) 0.1 Thou/mm3 (0.0-0.5); Eosinophils % (Auto) 1 % (0-10); Hematocrit 30.5 % (36.0-46.0); Hemoglobin 9.9 g/dL (12.0-16.0); Immature Granulocytes % (Auto) 1 % (0-0); Immature Granulocytes Auto 0.11 Thou/mm3 (0.00-0.00); Lymphocytes # (Auto) 1.5 Thou/mm3 (1.0-4.8); Lymphocytes % (Auto) 10 % (10-50); Mean Corpuscular HGB Conc 32.5 g/dl (31.0-37.0); Mean Corpuscular Hemoglobin 30.4 pg (25.0-35.0); Mean Corpuscular Volume 94 fL (80-100); Monocytes # (Auto) 0.8 Thou/mm3 (0.0-0.8); Monocytes % (Auto) 6 % (0-12); Neutrophils # (Auto) 12.4 Thou/mm3 (1.8-7.7); Neutrophils % (Auto) 83 % (37-80); Nucleated Red Blood Cell % 0 /100 WBC (0); Platelet Count 471 Thou/mm3 (140-440); RDW Standard Deviation 45.5 fL (36.4-46.3); Red Blood Count 3.26 Miln/mm3 (4.00-5.20)
[2024-11-22 07:09] LABS: Alanine Aminotransferase 34 U/L (10-49); Albumin, Serum 3.6 gm/dL (3.5-5.0); Albumin/Globulin Ratio 0.9 (1.2-2.2); Alkaline Phosphatase 213 U/L (46-116); Anion Gap 10 (7-16); Aspartate Amino Transferase 78 U/L (0-34); BUN/Creatinine Ratio 30 Ratio (12-20); Bilirubin,Total 0.3 mg/dL (0.3-1.2); Blood Urea Nitrogen 18 mg/dL (9-23); Calcium 8.3 mg/dL (8.3-10.6); Calcium (Corrected) 8.6 mg/dL (8.5-10.1); Chloride 103 mMol/L (98-107); Creatinine (Component) 0.6 mg/dL (0.6-1.3); Estimated Creatinine Clearance 133.1 mL/min (>60); Globulin 3.8 gm/dL (2.3-3.5); Glucose 111 mg/dL (74-106); Magnesium 1.9 mg/dL (1.6-2.6); Osmolality,Calculated 280 (275-295); Phosphorous 3.4 mg/dL (2.4-5.1); Potassium 4.4 mMol/L (3.4-5.1); Sodium 139 mMol/L (136-145); Total Protein 7.4 gm/dL (5.7-8.2); eGFR > 60 See Note
--- NOTE | 2024-11-22 07:29 | PC.SS ---
Addendum entered by ALESSANDRO Gracia 11/22/24 07:41: Notified RT Emy who will make her lead aware of ETA. Addendum entered by ALESSANDRO Gracia 11/22/24 07:39: Notified patient's family and bed side nurse of transport time. Original Note: SS update: transportation was scheduled on behalf of the patient who will discharge to [facility] in [facility] in [place]. [employer] reference number for the trip is [id number]. [facility] garbage pick up man ETA is 11am this morning.
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
[2024-11-22] MEDS: levETIRAcetam INJ 100 MG/ML VIAL 5ML 500 MG IVP ×2 (08:44→20:32)
[2024-11-22] MEDS: LANSOPRAZOLE 30 MG TAB.RAP.DR GT (08:44)
[2024-11-22] MEDS: POLYETHYLENE GLYCOL 17 GM PACKET NG ×2 (08:44→20:31)
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
[2024-11-22] MEDS: ONDANSETRON INJ 2 MG/ML INJ 2 ML 4 MG IV (09:46)
--- NOTE | 2024-11-22 09:53 | PC.NURSE ---
Pt vomiting, Dr. Ojeda at bedside, Oxygen stable saturating 96%, new order for Dr. Lynette babcock verbalized to update Dr. Villasenor.
--- NOTE | 2024-11-22 09:56 | PC.NURSE ---
Dr. Ojeda verbal order hold tube feeding d/t vomiting
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
--- NOTE | 2024-11-22 15:54 | PD.IMPROG ---
Documentation for date of: 11/22/24 Subjective Subjective Interval history: patient evaluated No drainage at the PEG site Exam Vital Signs Temp Pulse Resp BP Pulse Ox O2 Del Method O2 Flow Rate 98.2 F 117 H 24 H 118/78 98 Mechanical Ventilation 8 11/22/24 12:00 11/22/24 12:18 11/22/24 12:18 11/22/24 12:00 11/22/24 12:18 11/22/24 12:00 11/22/24 12:18 FiO2 40 11/22/24 12:18 Objective Labs 11/22/24 05:21 11/22/24 05:21 Labs: Laboratory Results - last 24 hr 11/22/24 05:21 WBC 15.0 H RBC 3.26 L Hgb 9.9 L Hct 30.5 L MCV 94 MCH 30.4 MCHC 32.5 RDW Std Deviation 45.5 Plt Count 471 H Neut % (Auto) 83 H Lymph % (Auto) 10 [place] % (Auto) 6 Eos % (Auto) 1 Baso % (Auto) 0 Neut # (Auto) 12.4 H Lymph # (Auto) 1.5 [place] # (Auto) 0.8 Eos # (Auto) 0.1 Baso # (Auto) 0.0 Immature Gran # (Auto) 0.11 H Absolute Nucleated RBC 0.00 Immature Gran % 1 H Nucleated RBC % 0 Sodium 139 Potassium 4.4 Chloride 103 Carbon Dioxide 26.0 Anion Gap 10 BUN 18 Creatinine 0.6 Estim Creat Clear Calc 133.1 eGFR > 60 BUN/Creatinine Ratio 30 H Glucose 111 H Calculated Osmolality 280 Calcium 8.3 Corrected Calcium 8.6 Phosphorus 3.4 Magnesium 1.9 Total Bilirubin 0.3 AST 78 H ALT 34 Alkaline Phosphatase 213 H Total Protein 7.4 Albumin 3.6 Globulin 3.8 H Albumin/Globulin Ratio 0.9 L Impressions Impression: Failure to thrive status post PEG placement Continue current hyperalimentation rate ABG Interpretation ABG results: 11/06/24 11/06/24 11/06/24 03:55 10:50 12:55 ABG pH 7.32 L 7.33 L ABG pCO2 51 H 49 H ABG pO2 161 H 201 H D ABG HCO3 26 26 ABG O2 Saturation 100 H 100 H ABG Base Excess -1 -1 VBG pH 6.98 L VBG pCO2 81 H VBG pO2 37 VBG Base Excess -14 L 11/06/24 11/07/24 11/10/24 16:35 05:28 19:42 ABG pH 7.40 7.42 7.30 L ABG pCO2 41 41 41 ABG pO2 140 H D 130 H 74 L ABG HCO3 26 27 H 20 ABG O2 Saturation 100 H 100 H 96 ABG Base Excess 1 2 -6 L VBG pH VBG pCO2 VBG pO2 VBG Base Excess Assessment & Plan A&P Narrative # Anoxic brain injury consent will be obtained from the family and the sister For PEG tube insertion via fiberoptic esophagogastroduodenoscopy under intravenous moderate sedation tentatively scheduled for tomorrow Ancef 1 g IV piggyback on-call to endoscopy N.p.o. midnight annette Thank you very much for the opportunity to participate in the care of this patient Time Spent With Patient Time: Total time spent is greater than 50% in coordination of care (as documented) at patient's floor/unit and/or counseling patient:
[2024-11-23] VITALS (14 sets, daily range): BP systolic 111–135; BP diastolic 78–84; PULSE 75–104; RESP 16–27; TEMP 36.1–36.5; O2SAT 93–100; BMI 30.4
[2024-11-23] MEDS: ALBUTEROL/IPRATROPIUM (Duoneb) RT SOL 3 ML NEBU INH ×4 (01:30→18:33)
[2024-11-23] MEDS: NYSTATIN SUSP 5 ML UDC PO (05:05)
[2024-11-23 06:12] LABS: Basophils # (Auto) 0.1 Thou/mm3 (0.0-0.2); Basophils % (Auto) 0 % (0-2.5); Eosinophils # (Auto) 0.2 Thou/mm3 (0.0-0.5); Eosinophils % (Auto) 1 % (0-10); Hemoglobin 10.3 g/dL (12.0-16.0); Immature Granulocytes % (Auto) 1 % (0-0); Immature Granulocytes Auto 0.09 Thou/mm3 (0.00-0.00); Lymphocytes # (Auto) 1.7 Thou/mm3 (1.0-4.8); Lymphocytes % (Auto) 12 % (10-50); Mean Corpuscular HGB Conc 32.2 g/dl (31.0-37.0); Mean Corpuscular Volume 93 fL (80-100); Monocytes # (Auto) 0.7 Thou/mm3 (0.0-0.8); Monocytes % (Auto) 5 % (0-12); Neutrophils # (Auto) 12.1 Thou/mm3 (1.8-7.7); Neutrophils % (Auto) 82 % (37-80); Nucleated Red Blood Cell % 0 /100 WBC (0); Platelet Count 449 Thou/mm3 (140-440); RDW Standard Deviation 45.5 fL (36.4-46.3); Red Blood Count 3.43 Miln/mm3 (4.00-5.20); White Blood Count 14.8 Thou/mm3 (3.6-11.0)
[2024-11-23 06:59] LABS: Alanine Aminotransferase 42 U/L (10-49); Alkaline Phosphatase 234 U/L (46-116); Anion Gap 9 (7-16); Aspartate Amino Transferase 88 U/L (0-34); BUN/Creatinine Ratio 26 Ratio (12-20); Bilirubin,Total 0.4 mg/dL (0.3-1.2); Blood Urea Nitrogen 18 mg/dL (9-23); Calcium 8.9 mg/dL (8.3-10.6); Calcium (Corrected) 8.9 mg/dL (8.5-10.1); Carbon Dioxide 25.1 mMol/L (20.0-31.0); Chloride 101 mMol/L (98-107); Creatinine (Component) 0.7 mg/dL (0.6-1.3); Estimated Creatinine Clearance 113.6 mL/min (>60); Globulin 4.2 gm/dL (2.3-3.5); Glucose 94 mg/dL (74-106); Osmolality,Calculated 272 (275-295); Phosphorous 3.9 mg/dL (2.4-5.1); Potassium 4.4 mMol/L (3.4-5.1); Sodium 135 mMol/L (136-145); Total Protein 8.2 gm/dL (5.7-8.2); eGFR > 60 See Note
--- NOTE | 2024-11-23 08:15 | PC.SS ---
SS spoke to Hannah with RT who inquired if pt needs an RT rider if pt is on [employer]o-[employer], SS contacted [facility] and spoke to Gus who confirmed with her highway maintenance supervisor that if the pt is trach on Blo-Bi no need for an RT rider. SS updated Hannah with RT and [place] FRANCOIS.
[2024-11-23] MEDS: POLYETHYLENE GLYCOL 17 GM PACKET NG ×2 (09:30→20:41)
[2024-11-23] MEDS: LANSOPRAZOLE 30 MG TAB.RAP.DR GT (09:30)
[2024-11-23] MEDS: levETIRAcetam INJ 100 MG/ML VIAL 5ML 500 MG IVP ×2 (09:30→20:41)
--- NOTE | 2024-11-23 10:02 | PC.SS ---
Addendum entered by Venice Bowles 11/23/24 11:35: SS attempted to connect [facility] [phone], a message was left requesting a return call regarding mutual patient and their discharge cancellation. Addendum entered by Venice Bowles 11/23/24 11:31: SS informed by KARI Arana there was a concern with patient's increased secretions and traveling. SS contacted Dr. Ojeda to confirm if patient will discharge. Dr. Ojeda explained discharge will be cancelled due to patient's increase in mucus secretion being a safety concern for travel. Dr. Ojeda further explained patient has an issue with tube feeding and it could possibly be causing patient to generate an excessive amount of secretion. SS contacted [facility] to cancel transportation. KARI Arana and patient's sibling Anais informed of discharge cancellation. Original Note: SS informed during meeting patient is ready for discharge to [place] [id number]. SS contacted [facility] and transportation was requested for 1300. Availability for orange picking supervisor will be 3-4hrs. from call. Reservation #[id number] provided by [employer]. [facility] orange picking supervisor for 1300. Gus stated [facility] will need to provide authorization, patient will be placed on will call. Gus from requested SS confirm if patient will need RT rider or deep suctioning. DAYDAY Jim contacted KARI Arana and he informed SS patient requires deep suctioning. SS contacted RT Hannah, she explained patient does not require deep suctioning. RT Hannah stated patient would need suctioning around the trach during transport. SS [facility] stated she has spoken to a mold cleaning and storage supervisor and if patient is on Blo-Bi, no RT rider is needed. SS received call from [facility] to update [facility] form with correct address. Updated from submitted to [facility] via [employer]. Gus informed SS she has contacted a mold cleaning and storage supervisor and was informed a RT rider will not be needed for suctioning around the trach. Transportation ETA remains for 1300. KARI Arana and patient?s sibling Anais Vazquez informed.
--- NOTE | 2024-11-23 10:31 | XR_ITS ---
Exam: Chest 1 view, AP Date and time of exam: 11/23/2024, 9:54 AM INDICATION: Respiratory distress. COMPARISON: 11/09/2024 Findings: ET tube unchanged in position. Interval removal of NG tube. Cardiac silhouette remains borderline enlarged. Interval worsening of of diffuse bilateral patchy areas of opacification involving all lung puga. No pneumothorax. No acute bony abnormality. Impression: Diffuse bilateral infiltrates with marked interval worsening when compared to prior exam.
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
[2024-11-23] MEDS: FUROSEMIDE INJ 10 MG/ML VIAL 2 ML 20 MG IVP (12:47)
[2024-11-23] MEDS: SCOPOLAMINE 1 MG TDSY TOP (12:47)
--- NOTE | 2024-11-23 19:43 | PD.IMPROG ---
Documentation for date of: 11/23/24 Subjective Subjective Interval history: PEG site checked no drainage Gastric residue issues The PEG tube flushes very nicely Add Reglan [id number] 5 mg IV push every 6 Exam Vital Signs Temp Pulse Resp BP Pulse Ox O2 Del Method O2 Flow Rate 96.9 F 92 18 122/84 100 Blow-by 8 11/23/24 16:00 11/23/24 18:34 11/23/24 18:34 11/23/24 16:00 11/23/24 18:34 11/23/24 16:00 11/23/24 18:34 FiO2 40 11/23/24 18:34 Objective Labs 11/23/24 05:28 11/23/24 05:28 Labs: Laboratory Results - last 24 hr 11/23/24 05:28 WBC 14.8 H RBC 3.43 L Hgb 10.3 L Hct 32.0 L MCV 93 MCH 30.0 MCHC 32.2 RDW Std Deviation 45.5 Plt Count 449 H Neut % (Auto) 82 H Lymph % (Auto) 12 [place] % (Auto) 5 Eos % (Auto) 1 Baso % (Auto) 0 Neut # (Auto) 12.1 H Lymph # (Auto) 1.7 [place] # (Auto) 0.7 Eos # (Auto) 0.2 Baso # (Auto) 0.1 Immature Gran # (Auto) 0.09 H Absolute Nucleated RBC 0.00 Immature Gran % 1 H Nucleated RBC % 0 Sodium 135 L Potassium 4.4 Chloride 101 Carbon Dioxide 25.1 Anion Gap 9 BUN 18 Creatinine 0.7 Estim Creat Clear Calc 113.6 eGFR > 60 BUN/Creatinine Ratio 26 H Glucose 94 Calculated Osmolality 272 L Calcium 8.9 Corrected Calcium 8.9 Phosphorus 3.9 Magnesium 2.0 Total Bilirubin 0.4 AST 88 H ALT 42 Alkaline Phosphatase 234 H D Total Protein 8.2 Albumin 4.0 Globulin 4.2 H Albumin/Globulin Ratio 1.0 L Impressions Impression: # Gastric residue issues Add Reglan 5 mg IV push every 6 No problems with the current PEG tube which I thoroughly checked ABG Interpretation ABG results: 11/06/24 11/06/24 11/06/24 03:55 10:50 12:55 ABG pH 7.32 L 7.33 L ABG pCO2 51 H 49 H ABG pO2 161 H 201 H D ABG HCO3 26 26 ABG O2 Saturation 100 H 100 H ABG Base Excess -1 -1 VBG pH 6.98 L VBG pCO2 81 H VBG pO2 37 VBG Base Excess -14 L 11/06/24 11/07/24 11/10/24 16:35 05:28 19:42 ABG pH 7.40 7.42 7.30 L ABG pCO2 41 41 41 ABG pO2 140 H D 130 H 74 L ABG HCO3 26 27 H 20 ABG O2 Saturation 100 H 100 H 96 ABG Base Excess 1 2 -6 L VBG pH VBG pCO2 VBG pO2 VBG Base Excess Assessment & Plan A&P Narrative # Anoxic brain injury consent will be obtained from the family and the sister For PEG tube insertion via fiberoptic esophagogastroduodenoscopy under intravenous moderate sedation tentatively scheduled for tomorrow Ancef 1 g IV piggyback on-call to endoscopy N.p.o. midnight annette Thank you very much for the opportunity to participate in the care of this patient Time Spent With Patient Time: Total time spent is greater than 50% in coordination of care (as documented) at patient's floor/unit and/or counseling patient:
--- NOTE | 2024-11-23 20:46 | PD.VPROG1 ---
Telemedicine visit statement This visit was conducted with the use phone visit was obtained on 11/23/24 at 2046. Documentation for date of: 11/23/24 Subjective Subjective Interval history: Patient is in telemetry unit, she is having vomiting, increased mucus secretion in the trach site, noted to have aspiration pneumonia. Tube feeding has been turned off and was started on scopolamine patch. Continue to remain trached and on ventilatory support Virtual exam Vital Signs Temp Pulse Resp BP Pulse Ox O2 Del Method O2 Flow Rate 96.9 F 92 18 122/84 100 Blow-by 8 11/23/24 16:00 11/23/24 18:34 11/23/24 18:34 11/23/24 16:00 11/23/24 18:34 11/23/24 16:00 11/23/24 18:34 FiO2 40 11/23/24 18:34 Objective Labs 11/23/24 05:28 11/23/24 05:28 Labs: Laboratory Results - last 24 hr 11/23/24 05:28 WBC 14.8 H RBC 3.43 L Hgb 10.3 L Hct 32.0 L MCV 93 MCH 30.0 MCHC 32.2 RDW Std Deviation 45.5 Plt Count 449 H Neut % (Auto) 82 H Lymph % (Auto) 12 [place] % (Auto) 5 Eos % (Auto) 1 Baso % (Auto) 0 Neut # (Auto) 12.1 H Lymph # (Auto) 1.7 [place] # (Auto) 0.7 Eos # (Auto) 0.2 Baso # (Auto) 0.1 Immature Gran # (Auto) 0.09 H Absolute Nucleated RBC 0.00 Immature Gran % 1 H Nucleated RBC % 0 Sodium 135 L Potassium 4.4 Chloride 101 Carbon Dioxide 25.1 Anion Gap 9 BUN 18 Creatinine 0.7 Estim Creat Clear Calc 113.6 eGFR > 60 BUN/Creatinine Ratio 26 H Glucose 94 Calculated Osmolality 272 L Calcium 8.9 Corrected Calcium 8.9 Phosphorus 3.9 Magnesium 2.0 Total Bilirubin 0.4 AST 88 H ALT 42 Alkaline Phosphatase 234 H D Total Protein 8.2 Albumin 4.0 Globulin 4.2 H Albumin/Globulin Ratio 1.0 L ABG Interpretation ABG results: 11/06/24 11/06/24 11/06/24 03:55 10:50 12:55 ABG pH 7.32 L 7.33 L ABG pCO2 51 H 49 H ABG pO2 161 H 201 H D ABG HCO3 26 26 ABG O2 Saturation 100 H 100 H ABG Base Excess -1 -1 VBG pH 6.98 L VBG pCO2 81 H VBG pO2 37 VBG Base Excess -14 L 11/06/24 11/07/24 11/10/24 16:35 05:28 19:42 ABG pH 7.40 7.42 7.30 L ABG pCO2 41 41 41 ABG pO2 140 H D 130 H 74 L ABG HCO3 26 27 H 20 ABG O2 Saturation 100 H 100 H 96 ABG Base Excess 1 2 -6 L VBG pH VBG pCO2 VBG pO2 VBG Base Excess Assessment & Plan Assessment Hypoxic brain injury: Encephalopathy Presented with new onset of seizures with focal myoclonus Assessment: CT head on 11/06: 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 Now, trached and has a PEG tube in place, not able to tolerate feeding well as she has persistent vomiting. Will change the Reglan to scheduled doses every 8 hours. If she continues to progress increase to secretions despite the scopolamine patch and Reglan, will consider adding Robinul She is in persistent vegetative state Continue with the current management, pending placement
[2024-11-23] MEDS: METOCLOPRAMIDE INJ 5 MG/ML VIAL 2 ML IVP (23:17)
[2024-11-24] VITALS (15 sets, daily range): BP systolic 105–133; BP diastolic 71–89; PULSE 84–101; RESP 15–23; TEMP 36.1–37.2; O2SAT 93–994; BMI 29.5
[2024-11-24] MEDS: ALBUTEROL/IPRATROPIUM (Duoneb) RT SOL 3 ML NEBU INH ×4 (00:52→18:55)
[2024-11-24] MEDS: METOCLOPRAMIDE INJ 5 MG/ML VIAL 2 ML IVP ×3 (05:10→17:47)
[2024-11-24 05:59] LABS: Basophils # (Auto) 0.1 Thou/mm3 (0.0-0.2); Basophils % (Auto) 1 % (0-2.5); Eosinophils # (Auto) 0.1 Thou/mm3 (0.0-0.5); Eosinophils % (Auto) 1 % (0-10); Hematocrit 30.8 % (36.0-46.0); Hemoglobin 10.2 g/dL (12.0-16.0); Immature Granulocytes % (Auto) 1 % (0-0); Immature Granulocytes Auto 0.08 Thou/mm3 (0.00-0.00); Lymphocytes # (Auto) 1.5 Thou/mm3 (1.0-4.8); Lymphocytes % (Auto) 13 % (10-50); Mean Corpuscular HGB Conc 33.1 g/dl (31.0-37.0); Mean Corpuscular Hemoglobin 30.7 pg (25.0-35.0); Mean Corpuscular Volume 93 fL (80-100); Monocytes # (Auto) 0.8 Thou/mm3 (0.0-0.8); Monocytes % (Auto) 7 % (0-12); Neutrophils # (Auto) 9.3 Thou/mm3 (1.8-7.7); Neutrophils % (Auto) 78 % (37-80); Nucleated Red Blood Cell % 0 /100 WBC (0); Platelet Count 501 Thou/mm3 (140-440); RDW Standard Deviation 45.1 fL (36.4-46.3); Red Blood Count 3.32 Miln/mm3 (4.00-5.20); White Blood Count 11.9 Thou/mm3 (3.6-11.0)
[2024-11-24 06:23] LABS: Alanine Aminotransferase 37 U/L (10-49); Alkaline Phosphatase 230 U/L (46-116); Anion Gap 11 (7-16); Aspartate Amino Transferase 86 U/L (0-34); BUN/Creatinine Ratio 30 Ratio (12-20); Bilirubin,Total 0.4 mg/dL (0.3-1.2); Blood Urea Nitrogen 21 mg/dL (9-23); Calcium 8.7 mg/dL (8.3-10.6); Calcium (Corrected) 8.7 mg/dL (8.5-10.1); Carbon Dioxide 25.8 mMol/L (20.0-31.0); Chloride 100 mMol/L (98-107); Creatinine (Component) 0.7 mg/dL (0.6-1.3); Estimated Creatinine Clearance 111.8 mL/min (>60); Globulin 4.1 gm/dL (2.3-3.5); Glucose 96 mg/dL (74-106); Osmolality,Calculated 276 (275-295); Phosphorous 4.2 mg/dL (2.4-5.1); Sodium 137 mMol/L (136-145); Total Protein 8.1 gm/dL (5.7-8.2); eGFR > 60 See Note
[2024-11-24] MEDS: levETIRAcetam INJ 100 MG/ML VIAL 5ML 500 MG IVP ×2 (08:59→21:14)
[2024-11-24] MEDS: LANSOPRAZOLE 30 MG TAB.RAP.DR GT (08:59)
[2024-11-24] MEDS: POLYETHYLENE GLYCOL 17 GM PACKET NG ×2 (08:59→21:14)
--- NOTE | 2024-11-24 11:24 | PC.SS ---
Addendum entered by Jennifer Jung 11/24/24 16:08: SIMON contacted [facility] for an update. SIMON left a voice message to please call back. 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 [facility]im requested new updated progress notes and MAR. SIMON uploaded all information to [employer]. Pending a call back from [facility].
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
--- NOTE | 2024-11-24 18:09 | PD.IMPROG ---
Documentation for date of: 11/24/24 Subjective Subjective Interval history: Patient evaluated PEG tube working very well Advance the tube feeding as tolerated Patient started on IV Reglan Exam Vital Signs Temp Pulse Resp BP Pulse Ox O2 Del Method O2 Flow Rate 97.0 F 90 19 105/79 99 Blow-by 8 11/24/24 16:00 11/24/24 16:00 11/24/24 16:00 11/24/24 16:00 11/24/24 16:00 11/24/24 16:00 11/24/24 16:00 FiO2 40 11/24/24 16:00 Objective Labs 11/24/24 05:26 11/24/24 05:26 Labs: Laboratory Results - last 24 hr 11/24/24 05:26 WBC 11.9 H RBC 3.32 L Hgb 10.2 L Hct 30.8 L MCV 93 MCH 30.7 MCHC 33.1 RDW Std Deviation 45.1 Plt Count 501 H D Neut % (Auto) 78 Lymph % (Auto) 13 [place] % (Auto) 7 Eos % (Auto) 1 Baso % (Auto) 1 Neut # (Auto) 9.3 H Lymph # (Auto) 1.5 [place] # (Auto) 0.8 Eos # (Auto) 0.1 Baso # (Auto) 0.1 Immature Gran # (Auto) 0.08 H Absolute Nucleated RBC 0.00 Immature Gran % 1 H Nucleated RBC % 0 Sodium 137 Potassium 4.0 Chloride 100 Carbon Dioxide 25.8 Anion Gap 11 BUN 21 Creatinine 0.7 Estim Creat Clear Calc 111.8 eGFR > 60 BUN/Creatinine Ratio 30 H Glucose 96 Calculated Osmolality 276 Calcium 8.7 Corrected Calcium 8.7 Phosphorus 4.2 Magnesium 2.0 Total Bilirubin 0.4 AST 86 H ALT 37 Alkaline Phosphatase 230 H Total Protein 8.1 Albumin 4.0 Globulin 4.1 H Albumin/Globulin Ratio 1.0 L Impressions Impression: # Gastric motility disorder IV Reglan Start feeding at a lower rate ABG Interpretation ABG results: 11/06/24 11/06/24 11/06/24 03:55 10:50 12:55 ABG pH 7.32 L 7.33 L ABG pCO2 51 H 49 H ABG pO2 161 H 201 H D ABG HCO3 26 26 ABG O2 Saturation 100 H 100 H ABG Base Excess -1 -1 VBG pH 6.98 L VBG pCO2 81 H VBG pO2 37 VBG Base Excess -14 L 11/06/24 11/07/24 11/10/24 16:35 05:28 19:42 ABG pH 7.40 7.42 7.30 L ABG pCO2 41 41 41 ABG pO2 140 H D 130 H 74 L ABG HCO3 26 27 H 20 ABG O2 Saturation 100 H 100 H 96 ABG Base Excess 1 2 -6 L VBG pH VBG pCO2 VBG pO2 VBG Base Excess Assessment & Plan A&P Narrative # Anoxic brain injury consent will be obtained from the family and the sister For PEG tube insertion via fiberoptic esophagogastroduodenoscopy under intravenous moderate sedation tentatively scheduled for tomorrow Ancef 1 g IV piggyback on-call to endoscopy N.p.o. midnight annette Thank you very much for the opportunity to participate in the care of this patient Time Spent With Patient Time: Total time spent is greater than 50% in coordination of care (as documented) at patient's floor/unit and/or counseling patient:
[2024-11-25] VITALS (16 sets, daily range): BP systolic 108–132; BP diastolic 63–87; PULSE 87–113; RESP 12–27; TEMP 36.4–37.1; O2SAT 94–99; BMI 28.9
[2024-11-25] MEDS: ALBUTEROL/IPRATROPIUM (Duoneb) RT SOL 3 ML NEBU INH ×4 (00:10→18:20)
--- NOTE | 2024-11-25 00:10 | ESPR_ITS ---
Documentation for date of: 11/24/24 Subjective Subjective Interval history: Patient was seen in telemetry today, trached and on ventilatory support, no changes overnight other than vomiting. Tube feeding has been restarted after being on Reglan scheduled Exam - Neurology Vital Signs Temp Pulse Resp BP Pulse Ox O2 Del Method O2 Flow Rate 97.3 F 100 19 131/75 H 97 Blow-by 8 11/24/24 20:00 11/24/24 20:00 11/24/24 21:00 11/24/24 20:00 11/24/24 21:00 11/24/24 20:00 11/24/24 20:00 FiO2 40 11/24/24 20:00 Narrative Exam General: Trached remains on mechanical ventilatory support, off of sedation HEENT: ET tube in tracheostomy site, site C/D/I, NC/AT, mucous membranes moist, bilateral sclera anicteric Cardiovascular: regular rate and rhythm, S1/S2 present, no murmurs appreciated Pulmonary: clear to auscultation bilaterally, no rales/rhonchi/wheezes Abdominal: soft, non-distended, normal bowel sounds present Musculoskeletal: no peripheral edema Skin: warm and dry, intact, no rashes Neuro: comatose, brainstem reflexes intact: positive corneal reflex, cough reflex, oculocephalic reflex, no response to painful stimulation in the extremities any longer Objective Labs 11/24/24 05:26 11/24/24 05:26 Labs: Laboratory Results - last 24 hr 11/24/24 05:26 WBC 11.9 H RBC 3.32 L Hgb 10.2 L Hct 30.8 L MCV 93 MCH 30.7 MCHC 33.1 RDW Std Deviation 45.1 Plt Count 501 H D Neut % (Auto) 78 Lymph % (Auto) 13 [place] % (Auto) 7 Eos % (Auto) 1 Baso % (Auto) 1 Neut # (Auto) 9.3 H Lymph # (Auto) 1.5 [place] # (Auto) 0.8 Eos # (Auto) 0.1 Baso # (Auto) 0.1 Immature Gran # (Auto) 0.08 H Absolute Nucleated RBC 0.00 Immature Gran % 1 H Nucleated RBC % 0 Sodium 137 Potassium 4.0 Chloride 100 Carbon Dioxide 25.8 Anion Gap 11 BUN 21 Creatinine 0.7 Estim Creat Clear Calc 111.8 eGFR > 60 BUN/Creatinine Ratio 30 H Glucose 96 Calculated Osmolality 276 Calcium 8.7 Corrected Calcium 8.7 Phosphorus 4.2 Magnesium 2.0 Total Bilirubin 0.4 AST 86 H ALT 37 Alkaline Phosphatase 230 H Total Protein 8.1 Albumin 4.0 Globulin 4.1 H Albumin/Globulin Ratio 1.0 L ABG Interpretation ABG results: 11/06/24 11/06/24 11/06/24 03:55 10:50 12:55 ABG pH 7.32 L 7.33 L ABG pCO2 51 H 49 H ABG pO2 161 H 201 H D ABG HCO3 26 26 ABG O2 Saturation 100 H 100 H ABG Base Excess -1 -1 VBG pH 6.98 L VBG pCO2 81 H VBG pO2 37 VBG Base Excess -14 L 11/06/24 11/07/24 11/10/24 16:35 05:28 19:42 ABG pH 7.40 7.42 7.30 L ABG pCO2 41 41 41 ABG pO2 140 H D 130 H 74 L ABG HCO3 26 27 H 20 ABG O2 Saturation 100 H 100 H 96 ABG Base Excess 1 2 -6 L VBG pH VBG pCO2 VBG pO2 VBG Base Excess Assessment & Plan Additional Assessment & Plan Additional Plan: #Seizures: likely from old infarct/hypoxic injury #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 Initial EEG: showed some slowing, not consistent with clinical picture. - Repeat CT head from today showed worsening cerebral edema overall prognosis: poor for meaningful neurological recovery. Now patient is in persistent vegetative state, with tracheostomy and PEG tube in place. Continue with the current management LTAC placement pending.
[2024-11-25] MEDS: METOCLOPRAMIDE INJ 5 MG/ML VIAL 2 ML IVP ×4 (00:43→18:11)
[2024-11-25 05:47] LABS: Basophils # (Auto) 0.1 Thou/mm3 (0.0-0.2); Basophils % (Auto) 1 % (0-2.5); Eosinophils # (Auto) 0.1 Thou/mm3 (0.0-0.5); Eosinophils % (Auto) 1 % (0-10); Hematocrit 32.1 % (36.0-46.0); Hemoglobin 10.3 g/dL (12.0-16.0); Immature Granulocytes % (Auto) 1 % (0-0); Immature Granulocytes Auto 0.09 Thou/mm3 (0.00-0.00); Lymphocytes # (Auto) 1.7 Thou/mm3 (1.0-4.8); Lymphocytes % (Auto) 15 % (10-50); Mean Corpuscular HGB Conc 32.1 g/dl (31.0-37.0); Mean Corpuscular Hemoglobin 29.6 pg (25.0-35.0); Mean Corpuscular Volume 92 fL (80-100); Monocytes # (Auto) 0.8 Thou/mm3 (0.0-0.8); Monocytes % (Auto) 7 % (0-12); Neutrophils # (Auto) 8.3 Thou/mm3 (1.8-7.7); Neutrophils % (Auto) 75 % (37-80); Nucleated Red Blood Cell % 0 /100 WBC (0); Platelet Count 597 Thou/mm3 (140-440); RDW Standard Deviation 44.7 fL (36.4-46.3); Red Blood Count 3.48 Miln/mm3 (4.00-5.20); White Blood Count 11.1 Thou/mm3 (3.6-11.0)
[2024-11-25 06:39] LABS: Alanine Aminotransferase 31 U/L (10-49); Albumin, Serum 3.8 gm/dL (3.5-5.0); Albumin/Globulin Ratio 0.9 (1.2-2.2); Alkaline Phosphatase 226 U/L (46-116); Anion Gap 11 (7-16); Aspartate Amino Transferase 83 U/L (0-34); BUN/Creatinine Ratio 29 Ratio (12-20); Bilirubin,Total 0.3 mg/dL (0.3-1.2); Blood Urea Nitrogen 20 mg/dL (9-23); Calcium (Corrected) 9.2 mg/dL (8.5-10.1); Carbon Dioxide 26.3 mMol/L (20.0-31.0); Chloride 100 mMol/L (98-107); Creatinine (Component) 0.7 mg/dL (0.6-1.3); Estimated Creatinine Clearance 110.7 mL/min (>60); Globulin 4.1 gm/dL (2.3-3.5); Glucose 100 mg/dL (74-106); Osmolality,Calculated 276 (275-295); Phosphorous 3.9 mg/dL (2.4-5.1); Sodium 137 mMol/L (136-145); Total Protein 7.9 gm/dL (5.7-8.2); eGFR > 60 See Note
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
[2024-11-25] MEDS: levETIRAcetam INJ 100 MG/ML VIAL 5ML 500 MG IVP ×2 (08:37→20:48)
[2024-11-25] MEDS: LANSOPRAZOLE 30 MG TAB.RAP.DR GT (08:37)
--- NOTE | 2024-11-25 10:08 | XR_ITS ---
Examination: AP chest single view Technique one AP portable upright chest single view Exam date and time: November 25, 2024 at 0925 hours Comparison November 23, 2024 INDICATIONS: Shortness of breath today. FINDINGS: Again noted extensive bilateral pneumonia Tracheostomy tube tip 3.8 cm above shannon Normal heart size Moderate air distended colon IMPRESSION: No significant change in extensive bilateral pneumonia
--- NOTE | 2024-11-25 11:20 | PC.SS ---
SS attempted to contact patient's sister Anais however did not answer. SS left Voicemail.
[2024-11-25] MEDS: Furosemide 40 MG TABLET PO (11:34)
--- NOTE | 2024-11-25 11:36 | PC.NURSE ---
Per MD Annir, do not change tube feed rate due to patient's tracheotomy site drainage.
--- NOTE | 2024-11-25 11:45 | PC.SS ---
Addendum entered by Alyce Gross 11/25/24 14:01: Nasim contacted SS and informed SS that patient could discharge today, however SS contacted [employer] nonprofit manager and she informed SS they do not have RT coverage for today. SS contacted Nasim and he informed SS that they were okay with having patient discharge tomorrow early years teacher, SS contacted Emy from [employer] and she informed SS she would be looking for coverage. SS will stand by for further needs. Patient will need ACLS transport. Addendum entered by Alyce Gross 11/25/24 11:59: SS follow up note; Nasim informed SS that he will contact SS back in regard to Bed availability. Original Note: SS was contacted by Nasim requesting updated Clinicals, SS sent requested information. SS contacted Dr. Garcia and he informed SS that he would consult with [facility] to determine if patient could discharge today.
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
--- NOTE | 2024-11-25 15:15 | PC.SS ---
SS attempted to contact patient's sister, Anais in regards to transportation tomorrow. SS left voicemail with call back number.
--- NOTE | 2024-11-25 22:17 | ESPR_ITS ---
Documentation for date of: 11/25/24 Subjective Subjective Interval history: PEG site checked no drainage Issue is of gastric motility disorder Exam Vital Signs Temp Pulse Resp BP Pulse Ox O2 Del Method O2 Flow Rate 97.5 F 96 21 H 115/63 95 Blow-by 8 11/25/24 20:00 11/25/24 20:00 11/25/24 20:00 11/25/24 20:00 11/25/24 20:00 11/25/24 20:00 11/25/24 18:20 FiO2 40 11/25/24 18:20 Objective Labs 11/25/24 05:09 11/25/24 05:09 Labs: Laboratory Results - last 24 hr 11/25/24 05:09 WBC 11.1 H RBC 3.48 L Hgb 10.3 L Hct 32.1 L MCV 92 MCH 29.6 MCHC 32.1 RDW Std Deviation 44.7 Plt Count 597 H D Neut % (Auto) 75 Lymph % (Auto) 15 [place] % (Auto) 7 Eos % (Auto) 1 Baso % (Auto) 1 Neut # (Auto) 8.3 H Lymph # (Auto) 1.7 [place] # (Auto) 0.8 Eos # (Auto) 0.1 Baso # (Auto) 0.1 Immature Gran # (Auto) 0.09 H Absolute Nucleated RBC 0.00 Immature Gran % 1 H Nucleated RBC % 0 Sodium 137 Potassium 4.0 Chloride 100 Carbon Dioxide 26.3 Anion Gap 11 BUN 20 Creatinine 0.7 Estim Creat Clear Calc 110.7 eGFR > 60 BUN/Creatinine Ratio 29 H Glucose 100 Calculated Osmolality 276 Calcium 9.0 Corrected Calcium 9.2 Phosphorus 3.9 Magnesium 2.0 Total Bilirubin 0.3 AST 83 H ALT 31 Alkaline Phosphatase 226 H Total Protein 7.9 Albumin 3.8 Globulin 4.1 H Albumin/Globulin Ratio 0.9 L Impressions Impression: Failure to thrive Status post PEG placement for enteral hyperalimentation Gastric motility disorder Continue current ABG Interpretation ABG results: 11/06/24 11/06/24 11/06/24 03:55 10:50 12:55 ABG pH 7.32 L 7.33 L ABG pCO2 51 H 49 H ABG pO2 161 H 201 H D ABG HCO3 26 26 ABG O2 Saturation 100 H 100 H ABG Base Excess -1 -1 VBG pH 6.98 L VBG pCO2 81 H VBG pO2 37 VBG Base Excess -14 L 11/06/24 11/07/24 11/10/24 16:35 05:28 19:42 ABG pH 7.40 7.42 7.30 L ABG pCO2 41 41 41 ABG pO2 140 H D 130 H 74 L ABG HCO3 26 27 H 20 ABG O2 Saturation 100 H 100 H 96 ABG Base Excess 1 2 -6 L VBG pH VBG pCO2 VBG pO2 VBG Base Excess Assessment & Plan A&P Narrative # Anoxic brain injury consent will be obtained from the family and the sister For PEG tube insertion via fiberoptic esophagogastroduodenoscopy under intravenous moderate sedation tentatively scheduled for tomorrow Ancef 1 g IV piggyback on-call to endoscopy N.p.o. midnight annette Thank you very much for the opportunity to participate in the care of this patient Time Spent With Patient Time: Total time spent is greater than 50% in coordination of care (as documented) at patient's floor/unit and/or counseling patient:
[2024-11-26] VITALS (9 sets, daily range): BP systolic 108–120; BP diastolic 76–86; PULSE 86–116; RESP 16–33; TEMP 36.2–36.8; O2SAT 93–99; BMI 28.8
[2024-11-26] MEDS: METOCLOPRAMIDE INJ 5 MG/ML VIAL 2 ML IVP ×2 (00:34→05:16)
[2024-11-26] MEDS: ALBUTEROL/IPRATROPIUM (Duoneb) RT SOL 3 ML NEBU INH ×2 (01:00→07:12)
[2024-11-26 05:31] LABS: Basophils # (Auto) 0.1 Thou/mm3 (0.0-0.2); Basophils % (Auto) 1 % (0-2.5); Eosinophils # (Auto) 0.1 Thou/mm3 (0.0-0.5); Eosinophils % (Auto) 1 % (0-10); Hematocrit 30.8 % (36.0-46.0); Hemoglobin 10.2 g/dL (12.0-16.0); Immature Granulocytes % (Auto) 1 % (0-0); Immature Granulocytes Auto 0.07 Thou/mm3 (0.00-0.00); Lymphocytes # (Auto) 1.8 Thou/mm3 (1.0-4.8); Lymphocytes % (Auto) 14 % (10-50); Mean Corpuscular HGB Conc 33.1 g/dl (31.0-37.0); Mean Corpuscular Hemoglobin 30.3 pg (25.0-35.0); Mean Corpuscular Volume 91 fL (80-100); Monocytes # (Auto) 0.8 Thou/mm3 (0.0-0.8); Monocytes % (Auto) 6 % (0-12); Neutrophils # (Auto) 9.5 Thou/mm3 (1.8-7.7); Neutrophils % (Auto) 77 % (37-80); Nucleated Red Blood Cell % 0 /100 WBC (0); Platelet Count 621 Thou/mm3 (140-440); RDW Standard Deviation 42.4 fL (36.4-46.3); Red Blood Count 3.37 Miln/mm3 (4.00-5.20); White Blood Count 12.4 Thou/mm3 (3.6-11.0)
[2024-11-26 06:02] LABS: Alanine Aminotransferase 32 U/L (10-49); Albumin, Serum 3.8 gm/dL (3.5-5.0); Albumin/Globulin Ratio 0.9 (1.2-2.2); Alkaline Phosphatase 221 U/L (46-116); Anion Gap 11 (7-16); Aspartate Amino Transferase 81 U/L (0-34); BUN/Creatinine Ratio 26 Ratio (12-20); Bilirubin,Total 0.3 mg/dL (0.3-1.2); Blood Urea Nitrogen 18 mg/dL (9-23); Calcium 8.9 mg/dL (8.3-10.6); Calcium (Corrected) 9.1 mg/dL (8.5-10.1); Carbon Dioxide 26.6 mMol/L (20.0-31.0); Chloride 99 mMol/L (98-107); Creatinine (Component) 0.7 mg/dL (0.6-1.3); Estimated Creatinine Clearance 110.7 mL/min (>60); Globulin 4.3 gm/dL (2.3-3.5); Glucose 119 mg/dL (74-106); Magnesium 1.9 mg/dL (1.6-2.6); Osmolality,Calculated 276 (275-295); Phosphorous 3.6 mg/dL (2.4-5.1); Potassium 3.8 mMol/L (3.4-5.1); Sodium 137 mMol/L (136-145); Total Protein 8.1 gm/dL (5.7-8.2); eGFR > 60 See Note
--- NOTE | 2024-11-26 08:06 | PC.SS ---
Addendum entered by Alyce Gross 11/26/24 11:19: SS attempted to contact patient's brother, Edgar Vazquez, phone# [phone] Addendum entered by Alyce Gross 11/26/24 10:02: Anais requested if not able to get ahold of her to contact her brother, Edgar Vazquez, phone# [phone]. SS attempted to contact Edgar however did not answer, SS left Voicemail with [place] information and contact number as well as SS contact number. Addendum entered by Alyce Gross 11/26/24 09:53: SS attempted to contact patient's friend, Jaclyn Flowers ([phone]) SS left VM with SS contact information. Addendum entered by Alyce Gross 11/26/24 09:19: SS contacted patient' friend Priscila in regards to transportation ETA. SS informed her that SS has attempted multiple times to get ahold of patient's sister, Anais. Priscila reported patient's sister works nights and does not answer to calls until after 2pm. Priscila reported she will text Anais to let her know. Addendum entered by Alyce Gross 11/26/24 09:14: SS set up transportation with [facility] for 11:30AM. SS attempted to contact patient's sister, SS left VM. SS notified patient's nurse, Augusta and RT Marzena as well as updated Nasim from [facility]. Original Note: SS follow up note; set up transportation for patient with [facility], Reference # [id number]. SS attempted to contact patients sister, Anais however did not answer, SS left Voicemail.
[2024-11-26] MEDS: POLYETHYLENE GLYCOL 17 GM PACKET NG (08:58)
[2024-11-26] MEDS: LANSOPRAZOLE 30 MG TAB.RAP.DR GT (08:58)
[2024-11-26] MEDS: levETIRAcetam INJ 100 MG/ML VIAL 5ML 500 MG IVP (08:58)
[2024-11-26] MEDS: FUROSEMIDE INJ 10 MG/ML VIAL 2 ML 20 MG IVP (10:16)
--- NOTE | 2024-11-26 10:17 | PC.SS ---
SS expanded the search to 250 [address] radius. SS contacted [facility] and they informed SS to fax referral to [id number]. SS faxed updated clinicals.
--- NOTE | 2024-11-26 11:01 | PC.NURSE ---
Report given to [facility] staff Neema RN. distilling department supervisor scheduled for 1130, family at bedside.
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
--- NOTE | 2024-11-26 16:11 | PC.SS ---
[employer] [facility] . Attention: Neema. 72 HR medication list also submitted on [facility] to [facility].
== END 2024-11-26 11:45 | DRG 143 ==
LOC: SERX 21:44 → SERHOLD 22:11 → S2NX 23:29 → S2SX 11-06 05:03 → S2NX 11-06 06:04 → S2SX 11-19 08:26
PROVIDERS: Internal Medicine Critical Care Medicine; Registered Nurse General Practice; Specialist; Student in an Organized Health Care Education/Training Program; Surgery; Admitting Provider Student in an Organized Health Care Education/Training Program; Emergency Provider Emergency Medicine; Visit Provider Student in an Organized Health Care Education/Training Program
PROC: 0DH63UZ Insertion of Feeding Device into Stomach, Percutaneous Approach (ICD-10-PCS; CPT 43246; principal; 2024-11-18 19:30)
DX: J95.03 Malfunction of tracheostomy stoma (principal); A41.9 Sepsis, unspecified organism; R57.0 Cardiogenic shock; R74.01 Elevation of levels of liver transaminase levels; E87.20 Acidosis, unspecified; E87.5 Hyperkalemia; E83.39 Other disorders of phosphorus metabolism; D75.839 Thrombocytosis, unspecified; E87.6 Hypokalemia; R62.7 Adult failure to thrive; G40.101 Localization-related (focal) (partial) symptomatic epilepsy and epileptic syndromes with simple partial seizures, not intractable, with status epilepticus; N17.9 Acute kidney failure, unspecified; E87.0 Hyperosmolality and hypernatremia; J96.22 Acute and chronic respiratory failure with hypercapnia; B37.0 Candidal stomatitis; G93.6 Cerebral edema; H47.10 Unspecified papilledema; I47.20 Ventricular tachycardia, unspecified; Z86.73 Personal history of transient ischemic attack (TIA), and cerebral infarction without residual deficits; I46.8 Cardiac arrest due to other underlying condition; G90.1 Familial dysautonomia [Riley-Day]; G93.1 Anoxic brain damage, not elsewhere classified; T38.0X5A Adverse effect of glucocorticoids and synthetic analogues, initial encounter; T88.4XXA Failed or difficult intubation, initial encounter; Y84.8 Other medical procedures as the cause of abnormal reaction of the patient, or of later complication, without mention of misadventure at the time of the procedure; J39.8 Other specified diseases of upper respiratory tract; J95.851 Ventilator associated pneumonia; Z79.899 Other long term (current) drug therapy; Z59.82 Transportation insecurity; Z66 Do not resuscitate; I35.1 Nonrheumatic aortic (valve) insufficiency; R40.3 Persistent vegetative state
CPT/HCPCS: 36415; 36600; 70450; 71045; 74018; 80053; 80061; 80307; 81001; 81025; 82803; 83605; 83735; 84100; 84145; 84295; 84484; 85025; 85610; 85730; 87040; 87070; 87077; 87081; 87086; 87186; 87205; 87811; 93005; 93306; 93312; 94002; 94003; 94640; 94762; 95816; 99285; A4217; A4649; A9270; C1776; J0283; J0295; J0613; J0689; J0690; J1100; J1200; J1643; J1800; J1940; J1953; J2060; J2250; J2251; J2270; J2405; J2470; J2543; J2704; J2765; J3010; J3370; J3475; J3490; J7030; J7040; J7050; J7060; J7120; J7131